=== PATIENT | male | born 1935 | race Caucasian/White ===

== ENCOUNTER 2019-12-01 16:04 | Inpatient (IN) | payer MEDICARE, SELFPAY ==
[2019-12-01] VITALS (56 sets, daily range): BP systolic 115–238; BP diastolic 56–114; PULSE 71–115; RESP 16–30; TEMP 36.9; O2SAT 88–99; BMI 24.4
--- NOTE | 2019-12-01 16:15 | ED_ITS ---
Entered by Mela Angel, acting as scribe for Nelly Arciniega MD, [facility] HPI - SOB/Dyspnea General: Chief Complaint: Shortness of Breath/Dyspnea Stated Complaint: SOB Time Seen by Provider: 12/01/19 16:15 Source: patient Mode of arrival: EMS Limitations: no limitations History of Present Illness: HPI Narrative: 84 yo Male presents to ED with complaint of shortness of breath. Pt states that his breathing got really bad before lunch time today. Pt states he wasn't able to walk to the bathroom and back without being out of breath. Pt states that he is normally on 4 liters of oxygen at home. Pt states that he has a hacking cough and can't cough anything up. Pt denies any fever and states that he hasn't been out of the house in several months until today. Pt states that he had an aortic valve replacement in 2011 and last summer had [address] An. elicited complaint: shortness of breath and cough Pertinent past history: COPD Onset (ago): hour(s) Context: recent illness and occurred during exertion Timing: progressively worsening Severity: moderate Exacerbating factors: exertion, movement and coughing Relieving factors: oxygen and rest Known history of: COPD Associated symptoms: Reports chest congestion, chest pain and cough; Deny abdominal pain, fever(s), nausea, palpitations, polydipsia, polyuria or vomiting Treatment prior to arrival: oxygen and bronchodilator Related Data: Home oxygen amount: 4 liters Review of Systems General: Reports: 10 or more systems reviewed and unremarkable except in HPI and below Const: Denies: fever Eyes: Denies: change in vision or blurry vision ENMT: Denies: throat pain, enlarged tonsils, painful swallowing, hoarseness, mouth pain or swelling of lips/tongue Card: Reports: chest pain; Denies: palpitations, irregular heart rhythm, edema or swelling of feet/ankles Resp: Reports: shortness of breath, non-productive cough and chest congestion GI: Denies: abdominal pain, nausea or vomiting : Denies: flank pain, painful urination, urinary frequency, urinary urgency or urinary hesitancy Musc: Denies: neck pain, back pain or extremity swelling Skin/Breast: Denies: rash, itching or redness Neuro: Denies: headache, numbness in extremities or weakness in extremities Endo: Denies: excessive urination, excessive thirst or tired all the time PFSH ED PFSH: Social History Smoking and tobacco status: former smoker Physical Exam Const: COMMON NORMALS: no apparent distress, average body habitus, oriented x3, no limitations, healthy appearing, alert and well nourished HENMT: COMMON NORMALS: normocephalic, head/scalp atraumatic and moist oral mucous membranes HEAD & SCALP: normocephalic and atraumatic Eye: COMMON NORMALS: PERRL, EOMs intact bilaterally, conjunctivae normal and no scleral icterus CONJUNCTIVA: Yes conjunctivae normal PUPIL: Yes PERRL Neck/C-Spine: COMMON NORMALS: full ROM, supple, no meningeal signs, no JVD and no carotid bruits Chest: COMMONS NORMALS: inspection of chest normal and palpation of chest normal Resp: COMMON NORMALS: no retractions and percussion normal EFFORT & INSPECTION: No able to speak in complete sentences, Yes tachypneic, Yes respiratory distress, No decreased respiratory effort, Yes labored, Yes retractions and Yes uses accessory muscles AUSCULTATION: crackles Laterality: bilateral PERCUSSION: percussion normal Cardio: COMMON NORMALS: no JVD, regular rate, regular rhythm, S1 normal heart sound, S2 normal heart sound, no gallops, no clicks, no murmurs, no rub and peripheral pulses 2+ throughout RATE: regular rate RHYTHM: regular rhythm HEART SOUNDS: S1 normal and S2 normal PERIPHERAL PULSES: pulses 2+ throughout GI: COMMON NORMALS: normal to inspection, nondistended, normoactive bowel sounds, soft to palpation, non-tender, no hepatosplenomegaly, no masses and no bruits PALPATION: Yes soft and Yes no hepatosplenomegaly : COMMON NORMALS: Yes no CVA tenderness BLADDER/KIDNEY EXAM: Yes no CVA tenderness Back/Pelvis: COMMON NORMALS: no CVA tenderness Extremity: COMMON NORMALS: normal to inspection, full ROM, normal capillary refill, no calf tenderness and no pedal edema Neuro: COMMON NORMALS: oriented x3 SENSORIUM/ORIENTATION: Yes alert MENINGEAL SIGNS: Yes no meningeal signs Skin: COMMON NORMALS: no rashes or lesions noted, no wounds, skin turgor normal, no jaundice, no petechiae and no mottling GENERAL SKIN EXAM: no rashes or lesions noted and turgor normal Course Consultations: Consultation #1: Dr. Herrera, hospitalist. She kindly accepted the patient to her service. Vital Signs: Vital signs: Vital Signs Temperature 98.4 F 12/01/19 16:05 Pulse Rate 106 H 12/01/19 21:37 Respiratory Rate 20 H 12/01/19 21:35 Blood Pressure 227/108 12/01/19 20:40 Pulse Oximetry 98 12/01/19 21:37 MDM - SOB/Dyspnea MDM Narrative: Medical decision making narrative: Patient who presented to the emergency department in acute respiratory distress. Most likely secondary to a COPD exacerbation. Evaluation does not reveal an infectious cause for decompensation. Because of his respiratory status he needed to be placed on a biPAP and he is admitted for further evaluation and management. Lab Data: Labs: Lab Results 12/01/19 12/01/19 12/01/19 Range/Units 16:15 16:15 16:15 WBC 10.7 H (4.0-10.0) 10^3/ uL RBC 3.80 L (4.1-5.3) 10^6/u L Hgb 10.6 L (11.7-16.6) g/dL Hct 34.1 L (42.0-52.0) % MCV 89.7 (80-94) fL MCH 27.9 L (28.0-34.0) pg MCHC 31.1 (30.0-36.0) g/dL RDW 14.9 (12.1-15.1) % Plt Count 285 (130-400) 10^3/c mm MPV 9.9 (7.4-10.4) fL Neut % (Auto) 74.8 % Lymph % (Auto) 10.5 % [place] % (Auto) 7.5 % Eos % (Auto) 6.4 % Baso % (Auto) 0.4 % Neut # (Auto) 8.0 H (1.8-7.7) 10^3/u L Lymph # (Auto) 1.1 (0.8-4.8) 10^3/u L [place] # (Auto) 0.8 (0.2-0.9) 10^3/u L Eos # (Auto) 0.7 (0.0-0.8) 10^3/u L Baso # (Auto) 0.0 (0.0-0.1) 10^3/u L Nucleated RBC % (a uto) 0 % Nucleated RBCs # 0.0 /100WBC D-Dimer 1.30 H (0-0.59) ug/mIFE U Specimen Type Sample Site ABG pH (7.35-7.45) ABG pCO2 (35-45) mmHg ABG pO2 (80.0-100.0) mmH g ABG HCO3 (22-26) mmol/L ABG Base Excess (-2.0-2.0) mmol/ L Tye Test Hematocrit (42-52) % Hgb O2 Saturation (95-100) % Carboxyhemoglobin (0.4-20.1) %THgb Methemoglobin (0.4-1.5) % Total Hemoglobin (14-18) g/dL O2 Delivery Device O2 Liters/Min % FiO2 % Health It Specialist ID Sodium 139 (136-145) mmol/L Potassium 4.7 (3.5-5.1) mmol/L Chloride 98 (98-107) mmol/L Carbon Dioxide 30 H (22-29) mmol/L Anion Gap 15.7 (5-19) BUN 29 H (8-23) mg/dL Creatinine 1.1 (0.7-1.2) mg/dL Glucose 165 H (65-115) mg/dL Calcium 9.7 (8.5-10.5) mg/dL Total Bilirubin 0.3 (0.15-1.2) mg/dL AST 23 (0-40) U/L ALT 14 (0-41) U/L Alkaline Phosphata se 158 H (40-130) IU/L NT-Pro-B Natriuret Pep 842 H (0-450) pg/mL Total Protein 7.1 (6.6-8.7) g/dL Albumin 4.2 (3.5-5.2) g/dL Globulin 2.9 (1.3-4.6) g/dL Influenza Type A A g (Negative) POC Influenza B Ag (Negative) 12/01/19 12/01/19 Range/Units 16:40 17:05 WBC (4.0-10.0) 10^3/ uL RBC (4.1-5.3) 10^6/u L Hgb (11.7-16.6) g/dL Hct (42.0-52.0) % MCV (80-94) fL MCH (28.0-34.0) pg MCHC (30.0-36.0) g/dL RDW (12.1-15.1) % Plt Count (130-400) 10^3/c mm MPV (7.4-10.4) fL Neut % (Auto) % Lymph % (Auto) % [place] % (Auto) % Eos % (Auto) % Baso % (Auto) % Neut # (Auto) (1.8-7.7) 10^3/u L Lymph # (Auto) (0.8-4.8) 10^3/u L [place] # (Auto) (0.2-0.9) 10^3/u L Eos # (Auto) (0.0-0.8) 10^3/u L Baso # (Auto) (0.0-0.1) 10^3/u L Nucleated RBC % (a uto) % Nucleated RBCs # /100WBC D-Dimer (0-0.59) ug/mIFE U Specimen Type Arterial Sample Site Radial, left ABG pH 7.44 (7.35-7.45) ABG pCO2 45.7 H (35-45) mmHg ABG pO2 70.5 L (80.0-100.0) mmH g ABG HCO3 31.1 H (22-26) mmol/L ABG Base Excess 6.1 H (-2.0-2.0) mmol/ L Tye Test Pos Hematocrit 34.7 L (42-52) % Hgb O2 Saturation 92.6 L (95-100) % Carboxyhemoglobin 0.9 (0.4-20.1) %THgb Methemoglobin 0.8 (0.4-1.5) % Total Hemoglobin 11.3 L (14-18) g/dL O2 Delivery Device Nc O2 Liters/Min 4.0 % FiO2 36.0 % Health It Specialist ID glc Sodium (136-145) mmol/L Potassium (3.5-5.1) mmol/L Chloride (98-107) mmol/L Carbon Dioxide (22-29) mmol/L Anion Gap (5-19) BUN (8-23) mg/dL Creatinine (0.7-1.2) mg/dL Glucose (65-115) mg/dL Calcium (8.5-10.5) mg/dL Total Bilirubin (0.15-1.2) mg/dL AST (0-40) U/L ALT (0-41) U/L Alkaline Phosphata se (40-130) IU/L NT-Pro-B Natriuret Pep (0-450) pg/mL Total Protein (6.6-8.7) g/dL Albumin (3.5-5.2) g/dL Globulin (1.3-4.6) g/dL Influenza Type A A g Negative (Negative) POC Influenza B Ag Negative (Negative) Imaging Data^: CTA Chest: Radiologist's impression: [place] [address] CT Scan Report Signed Patient: Ion Messina #: [id number] : 6Acct#:[id number] Age/Sex: 84 / MADM Date: 12/01/19 Loc: ERRoom/Bed: Attending Dr: Ordering Provider/Ordering MD: Nelly Arciniega MD, [facility] Date of Service: 12/01/19 Procedure(s): CT angio chest PE protcl [id number] Accession Number(s): [id number] Report Number: [id number] PROCEDURE INFORMATION: Exam: CT Angiography Chest With Contrast Exam date and time: 12/01/2019 5:07 PM Age: 84 years old Clinical indication: Shortness of breath; Prior surgery; Surgery date: 6+ months; Surgery type: Valve; Patient HX: C/O worsened SOB since yesterday TECHNIQUE: Imaging protocol: Computed tomographic angiography of the chest with intravenous contrast. 3D rendering: MIP and/or 3D reconstructed images were created by the technologist. Total DLP: 618.25 mGy-cm Radiation optimization: All CT scans at this facility use at least one of these dose optimization techniques: automated exposure control; mA and/or kV adjustment per patient size (includes targeted exams where dose is matched to clinical indication); or iterative reconstruction. Contrast material: OMNI 350; Contrast volume: 95 ml; Contrast route: 18G; COMPARISON: CTA Chest-Pulmonary Emb [id number] 02/24/2019 9:45 AM FINDINGS: Pulmonary arteries: Normal. No pulmonary emboli. Aorta: Unremarkable. No aortic aneurysm. No aortic dissection. Lungs: There are severe centrilobular emphysematous changes in the bilateral lungs. Bilateral lung scarring. There are pulmonary parenchymal calcifications consistent with remote granulomatous organism exposure. Pleural space: Unremarkable. No pneumothorax. No pleural effusion. Heart: Multivessel atherosclerotic disease which involves the coronary arteries. Mediastinum: There are post sternotomy changes and postoperative changes in the anterior mediastinum including a prosthetic aortic valve. Kidneys and ureters: 3.7 cm right renal cyst has benign features. Follow-up is not necessary. Lymph nodes: There are calcified mediastinal and perihilar lymph nodes consistent with prior granulomatous exposure. Bones/joints: Generalized osteopenia. There are degenerative changes in the visualized spine. Soft tissues: Unremarkable. CT/CT angio chest PE protcl [id number] IMPRESSION: 1. There are severe centrilobular emphysematous changes in the bilateral lungs. 2. No evidence for pulmonary embolus. Radiation Dose CTDIVOL = (mGy): DLP = 618.25 (mGy-cm) Dictated By:Angelia Matson MD Signed By:Angelia Matson MDSigned Date/Time:12/01/191815 DD/ 14 Discharge Plan Discharge Patient Disposition: Admitted As Inpatient Admit Provider: Deneen Herrera Clinical Impression: Acute and chronic respiratory failure ([id number]), Acute exacerbation of chronic obstructive airways disease Condition: Stable Interventions: ED Discharge Assessment Last Done: 12/01/19 19:53 Discharge Date/Time: 12/01/19 20:13 Coding Level of Care Code ED Salvage Clerk for Chg Fwd Exam Comprehensive The documentation recorded by the Stanley gardiner Carmen, accurately reflects the service I personally performed and the decisions made by Suze rendon Adegoke I, MD, [facility] Dec 01, 2019 16:04
--- NOTE | 2019-12-01 16:29 | XR_ITS ---
WS: [id number] CHEST XRAY TECHNIQUE: Portable chest. CLINICAL INFORMATION: Difficulty breathing COMPARISON: February 24, 2019 FINDINGS: Heart: Cardiomegaly. Sternotomy. Lungs: Chronic emphysematous changes. Chronic interstitial thickening right midlung unchanged. No acu te-appearing pulmonary infiltrates. Bones: Normal visualized bony structures. XR/XR chest 1V portable [id number] IMPRESSION: Chronic interstitial thickening right midlung appears unchanged from previous. No new infiltrates
[2019-12-01 16:36] LABS: Basophils % 0.4 %; Eosinophils # 0.7 10^3/uL (0.0-0.8); Eosinophils % 6.4 %; Hematocrit 34.1 % (42.0-52.0); Hemoglobin 10.6 g/dL (11.7-16.6); Lymphocytes # 1.1 10^3/uL (0.8-4.8); Lymphocytes % 10.5 %; Mean Corpuscular HGB Conc 31.1 g/dL (30.0-36.0); Mean Corpuscular Hemoglobin 27.9 pg (28.0-34.0); Mean Corpuscular Volume 89.7 fL (80-94); Mean Platelet Volume 9.9 fL (7.4-10.4); Monocytes # 0.8 10^3/uL (0.2-0.9); Monocytes % 7.5 %; Neutrophils % 74.8 %; Nucleated Red Blood Cells % 0 %; Platelet Count 285 10^3/cmm (130-400); Red Cell Distribution Width 14.9 % (12.1-15.1); White Blood Count 10.7 10^3/uL (4.0-10.0)
[2019-12-01] MEDS: ipratropium-albuterol 3 mL Neb INHALATION ×3 (16:53→23:43)
--- NOTE | 2019-12-01 16:59 | CTR_ITS ---
PROCEDURE INFORMATION: Exam: CT Angiography Chest With Contrast Exam date and time: 12/01/2019 5:07 PM Age: 84 years old Clinical indication: Shortness of breath; Prior surgery; Surgery date: 6+ months; Surgery type: Valve; Patient HX: C/O worsened SOB since yesterday TECHNIQUE: Imaging protocol: Computed tomographic angiography of the chest with intravenous contrast. 3D rendering: MIP and/or 3D reconstructed images were created by the technologist. Total DLP: 618.25 mGy-cm Radiation optimization: All CT scans at this facility use at least one of these dose optimization techniques: automated exposure control; mA and/or kV adjustment per patient size (includes targeted exams where dose is matched to clinical indication); or iterative reconstruction. Contrast material: OMNI 350; Contrast volume: 95 ml; Contrast route: 18G; COMPARISON: CTA Chest-Pulmonary Emb [id number] 02/24/2019 9:45 AM FINDINGS: Pulmonary arteries: Normal. No pulmonary emboli. Aorta: Unremarkable. No aortic aneurysm. No aortic dissection. Lungs: There are severe centrilobular emphysematous changes in the bilateral lungs. Bilateral lung scarring. There are pulmonary parenchymal calcifications consistent with remote granulomatous organism exposure. Pleural space: Unremarkable. No pneumothorax. No pleural effusion. Heart: Multivessel atherosclerotic disease which involves the coronary arteries. Mediastinum: There are post sternotomy changes and postoperative changes in the anterior mediastinum including a prosthetic aortic valve. Kidneys and ureters: 3.7 cm right renal cyst has benign features. Follow-up is not necessary. Lymph nodes: There are calcified mediastinal and perihilar lymph nodes consistent with prior granulomatous exposure. Bones/joints: Generalized osteopenia. There are degenerative changes in the visualized spine. Soft tissues: Unremarkable. CT/CT angio chest PE protcl [id number] IMPRESSION: 1. There are severe centrilobular emphysematous changes in the bilateral lungs. 2. No evidence for pulmonary embolus. Radiation Dose CTDIVOL = (mGy): DLP = 618.25 (mGy-cm)
[2019-12-01 17:01] LABS: Alanine Aminotransferase 14 U/L (0-41); Albumin Level 4.2 g/dL (3.5-5.2); Alkaline Phosphatase 158 IU/L (40-130); Anion Gap 15.7 (5-19); Aspartate Amino Transferase 23 U/L (0-40); Blood Urea Nitrogen 29 mg/dL (8-23); Calcium 9.7 mg/dL (8.5-10.5); Carbon Dioxide 30 mmol/L (22-29); Chloride 98 mmol/L (98-107); Globulin 2.9 g/dL (1.3-4.6); Glucose 165 mg/dL (65-115); NT Pro B Type Natriuretic Pept 842 pg/mL (0-450); Potassium 4.7 mmol/L (3.5-5.1); Sodium 139 mmol/L (136-145); Total Bilirubin 0.3 mg/dL (0.15-1.2); Total Protein 7.1 g/dL (6.6-8.7)
[2019-12-01 17:15] LABS: ABG PCO2 45.7 mmHg (35-45); ABG PH Result 7.44 (7.35-7.45); Arterial Blood Gas Hematocrit 34.7 % (42-52); Base Excess ABG 6.1 mmol/L (-2.0-2.0); Blood Gas Allen Test Pos; Blood Gas Operator Identificat glc; Blood Gas Sample Site Radial, left; Blood Gas Sample Type Arterial; Carboxyhemoglobin 0.9 %THgb (0.4-20.1); HCO3 ABG 31.1 mmol/L (22-26); HGB O2 Sat 92.6 % (95-100); Methemoglobin 0.8 % (0.4-1.5); Oxygen Device NC; PO2 ABG 70.5 mmHg (80.0-100.0); Total Hemoglobin 11.3 g/dL (14-18)
[2019-12-01] MEDS: iohexol 350 mg/mL 100 mL Btl IV (17:18)
[2019-12-01 17:23] LABS: Influenza A by IFA Negative (Negative); Influenza B by IFA Negative (Negative)
--- NOTE | 2019-12-01 20:19 | P.HP_ITS ---
Providers/Chief Complaint Admitting Physician: Deneen Herrera MD Primary Care Provider: Sandy Cason Chief Complaint: ACUTE RESPIRATORY FAILURE;COPD EXACERBATION History of Present Illness Ion Messina is a 84 year old male with PMHx of Oxygen-dependent COPD (4 L), HTN, IDDM type II (brittle diabetes), s/p aortic valve replacement, HTN, Hyperlipidemia, Chronic atrial fibrillation/atrial flutter; on AC with Eliquis, CAD s/p PCI most recently 03/2019 presents with SOB worsened since this afternoon. and daughter at bedside he was in his usual state of health until 2 to 3 days ago when he started to experience symptoms of runny nose and cough without any expectoration. He was using his inhalers and nebulizers at his baseline, not recently increased. Starting yesterday he started to experience some shortness of breath, more acutely worsened this afternoon which did not improve with his rescue inhalers and nebulizer. He was therefore brought into the ER and noted to be tachypneic with respiratory rate in the 30s and also tachycardic with heart rate going up to 1 20-1 31 due to respiratory distress. His initial blood gas did not show any hypercapnia or hypoxia, however per ER report he had started to tire out and was therefore placed on BiPAP after which he is feeling better. He has received nebulizations and Solu-Medrol 125 mg x 1 in the ED. There is no complaints of chest pain since onset of symptoms. No complaint of increasing swelling in lower extremities. He has been taking all of his medications including Lasix as prescribed. He has not had any fever at home. In the ICU now his temperature is 99.9. Family gives a history of multiple sick contacts with URI symptoms over the past week including a nephew who was taking Tamiflu. He had diarrhea 2 days ago with incontinence which has since resolved. Diagnostics show WBC 10.7,ABG 7.44, 45.7/70.5/31.1/92.6 on 4L NC. Hco3 chronically ranging ~30s. Renal function at baseline. BNP 842. Influenza swab negative. CTA with no PE, but severe emphysematous changes B/L lungs. Last stress test 02/2019 normal, however had ongoing chest pain, followed up with angiogram with stenting to obtuse marginal x2. No recurrent chest pain since then. Troponin N/A. Upon my evaluation patient's blood pressure is 220/118 on monitor, heart rate of 90 bpm, SPO2 of 92%, he was transferred from ER to ICU off of BiPAP and this made him visibly tachypneic so he has been placed back on right now. He received hydralazine 10 mg IV with improvement in blood pressure now to 130/59 by 11:30 PM. Review of Systems General: Reports: 10 or more systems reviewed and unremarkable except in HPI and below Const: Denies: fever, chills or body aches Eyes: Denies: change in vision, blurry vision or photophobia ENMT: Denies: throat pain, enlarged tonsils, painful swallowing, hoarseness or nasal congestion Card: Reports: shortness of breath on exertion; Denies: chest pain, palpitations, irregular heart rhythm, edema, swelling of feet/ankles, lightheadedness, pre-syncope or shortness of breath when lying down Resp: Reports: shortness of breath, non-productive cough and wheezing; Denies: productive cough, stridor, pain on inspiration, change in phlegm color, coughing up blood or chest congestion GI: Denies: abdominal pain, nausea, vomiting, vomiting blood, coffee grounds in vomit, difficulty swallowing, heartburn/indigestion, diarrhea, constipation, cramping, change in stool character, blood in stool or black tarry stool : Denies: flank pain, painful urination, urinary frequency, urinary urgency, urinary hesitancy or blood in urine Musc: Denies: neck pain, back pain, extremity pain, joint swelling, joint wa rmth or deformity Neuro: Denies: headache, numbness in extremities, weakness in extremities, changes in sensation, difficulty walking, frequent falls, dizziness, vertigo, behavioral changes, slurred speech or seizure-like activity Psych: Denies: anxiety, depression, suicidal ideation or homicidal ideation Endo: Denies: excessive urination, excessive thirst, tired all the time, cold intolerance or hot flashes Balaji/Lymph: Denies: easy bruising or easy bleeding Medications/Allergies Home Medications Medication Instructions Recorded Confirmed Last Taken Type albuterol sulfate 2 puff INHALATION Q6H PRN 12/01/19 12/01/19 12/01/19 History albuterol sulfate 2.5 mg INHALATION Q6H PRN 12/01/19 12/01/19 12/01/19 History amiodarone 200 mg PO DAILY 12/01/19 12/01/19 12/01/19 History apixaban [Eliquis] 5 mg PO BID 12/01/19 12/01/19 12/01/19 History atorvastatin 10 mg PO DAILY 12/01/19 12/01/19 12/01/19 History clonidine HCl 0.2 mg PO TID 12/01/19 12/01/19 12/01/19 History clopidogrel 75 mg PO DAILY 12/01/19 12/01/19 12/01/19 History fluticasone furoate-vilanterol 1 ea INHALATION DAILY 12/01/19 12/01/19 12/01/19 History [Breo Ellipta] furosemide 40 mg PO DAILY 12/01/19 12/01/19 12/01/19 History insulin degludec [Tresiba 28 unit SUBCUT BEDTIME 12/01/19 12/01/19 11/30/19 History FlexTouch U-200] insulin lispro [Humalog KwikPen See Rx Instructions .ROUTE .COMPLEX 12/01/1912/01/19 History Insulin] latanoprost 1 drp OPHTHALMIC (EYE) BEDTIME 12/01/19 12/01/19 11/30/19 History metoprolol succinate 12.5 mg PO DAILY 12/01/19 12/01/19 11/30/19 History olmesartan 10 mg PO DAILY 12/01/19 12/01/19 12/01/19 History prednisone 5 mg PO EVERY OTHER DAY 12/01/19 12/01/19 11/30/19 History terazosin 5 mg PO BID 12/01/19 12/01/19 12/01/19 History theophylline 400 mg PO BEDTIME 12/01/19 12/01/19 11/30/19 History tiotropium bromide [Spiriva with 1 cap INHALATION DAILY 12/01/19 12/01/19 12/01/19 History HandiHaler] Allergies Allergy/AdvReac Type Severity Reaction Status Date / Time ezetimibe [From Vytorin] Allergy ADR-Cramping Verified 12/01/19 16:13 of the Muscles Penicillins Allergy ALGY-Rash Verified 12/01/19 16:13 simvastatin [From Vytorin] Allergy ADR-Cramping Verified 12/01/19 16:13 of the Muscles PFSH Acute PFSH: Medical History (Updated 12/01/19 @ 23:45 by Deneen Herrera MD) Atrial fibrillation CAD (coronary artery disease) Diabetes mellitus Hyperlipidemia Hyperlipidemia Surgical History Hx of CABG Social History Smoking and tobacco status: former smoker Vitals/I&O/Wt Last Vital Signs Temp 98.4 F 12/01/19 16:05 Pulse 107 H 12/01/19 20:15 Resp 20 H 12/01/19 19:53 BP 187/95 12/01/19 19:53 Pulse Ox 91 12/01/19 20:15 Weight last 48 hrs Weight 79.379 kg Physical Exam Narrative: EXAM NARRATIVE: GEN: Awake, alert and oriented, lying in bed in semi recumbent position with BiPAP in place. Urine transferred from ER patient was on a nasal cannula and being off of BiPAP for about 10 minutes had made him feel winded and respiratory rate was back at 30. HEENT BiPAP mask in place. CVS: S1S2 N RS: Bilateral diffusely reduced air entry all areas Abd: Soft, nt/nd , bs+ TOOLROOM ATTENDANT: no focal neuro deficits Data : 12/01/19 16:15 12/01/19 16:15 Micro: Microbiology 12/01/19 16:40 Blood Culture - Preliminary Blood SPECIMEN COLLECTED 12/01/19 16:45 Blood Culture - Preliminary Blood SPECIMEN COLLECTED A&P Assessment and plan (1) Acute and chronic respiratory failure ([id number]): Status: Acute Qualifiers: Respiratory failure complication: hypoxia Qualified Code(s): J96.21 - Acute and chronic respiratory failure with hypoxia Code(s): J96.20 - Acute and chronic respiratory failure, unspecified whether with hypoxia or hypercapnia (2) Acute exacerbation of chronic obstructive airways disease: Status: Acute Code(s): J44.1 - Chronic obstructive pulmonary disease with (acute) exacerbation (3) Diabetes mellitus: Status: Acute Code(s): E11.9 - Type 2 diabetes mellitus without complications (4) CAD (coronary artery disease): Status: Acute Code(s): I25.10 - Atherosclerotic heart disease of [place] coronary artery without angina pectoris (5) Atrial fibrillation: Status: Acute Code(s): I48.91 - Unspecified atrial fibrillation Additional A&P Information Admit to ICU in view of COPD exacerbation. #1 acute on chronic COPD exacerbation Duo nebs every 4 hours Budesonide inhalation 0.5 twice daily Solu-Medrol 125 mg IV every 8 hourly Continue home dose of theophylline at 400 mg p.o. at bedtime. Keep patient on BiPAP overnight CTA of the chest is without PE. Extensive emphysematous changes seen on the CAT scan with numerous bullae and air trapping. Appears that likely trigger for COPD exacerbation now may have been a viral URI since he has been having some cough, diarrhea runny nose and multiple sick contacts. Influenza swab is negative. We will also start levofloxacin 750 mg daily which will cover him for COPD exacerbation and also possibility of CAP including atypical pneumonia. ABG does not show any evidence of hypoxia or hypercapnia at this time, however patient is noted to be extremely tachypneic upon being taken off with the BiPAP. Clinically do not feel that CHF is contributing at this time. There are no rails on examination, no fluid noted on CT of the chest and his BNP is lower than at baseline. Additionally he does not have any complains of chest pain therefore doubt cardiac causes. We will continue Lasix at home dose. N.p.o. for now while on continuous BiPAP. #2 atrial fibrillation/flutter, currently rate controlled. Continue amiodarone 200 mg daily. Metoprolol converted to IV dosing for now, to be used for both heart rate and blood pressure control. #3 hypertension with blood pressure 228/118 upon presentation to the ED improved with 10 mg of IV hydralazine. Will use the same PRN. Once he is able to tolerate p.o. intake clonidine p.o. can be resumed at home dosing. Continue olmesartan #4 diabetes mellitus: Insulin sliding scale for now. Since he is n.p.o. we will hold off on using long-acting insulin tonight. This may be resumed tomorrow. DVT prophylaxis: Currently on Eliquis CODE STATUS is full code. Per discussion with patient and family, he would like a trial of full resuscitation, however if it appears that he is going to be chronically vent dependent he would not want tracheostomy or prolonged ventilation. Attestations Medical Necessity Statement*: Anticipate greater than 2 midnight admission for acute on chronic COPD exacerbation with respiratory fatigue. Coding Level of Care Code Acute Lye Bath Operator for [facility] Diagnoses Acute and chronic respiratory failure ([id number]) J96.21 Respiratory failure complication: hypoxia Acute exacerbation of chronic obstructive airways disease J44.1 Diabetes mellitus E11.9 CAD (coronary artery disease) I25.10 Atrial fibrillation I48.91
[2019-12-01] MEDS: hyDRALAzine 20 mg/mL INJ 1 mL 10 MG IVP (20:49)
[2019-12-01] MEDS: budesonide 0.5 mg/2 mL Neb INHALATION (21:33)
[2019-12-01] MEDS: latanoprost 0.005% Op Soln 2.5 mL Btl 1 DROP EYE-BOTH (21:45)
[2019-12-01] MEDS: levofloxacin-dextrose 5 % 750 MG/150 ML PREMIX 150 MG IV (21:45)
[2019-12-01] MEDS: metoprolol tartrate 1 mg/1 mL SDV 5 mL 5 MG IV (21:46)
[2019-12-01 22:06] LABS: Magnesium 2.2 mg/dL (1.7-2.3)
--- NOTE | 2019-12-01 23:21 | PC.NURSE ---
2006 rcvd pt from ed via stretcher , sternal and abd retractions noted with respirations. spo2 84 on 6L NC at this time. family at bedside multiple questions answered. dr. soto at bedside. pt placed on bipap. erick pérez.
[2019-12-02] VITALS (75 sets, daily range): BP systolic 147–203; BP diastolic 56–102; PULSE 67–93; RESP 15–27; TEMP 36.7–36.9; O2SAT 88–99
[2019-12-02] MEDS: metoprolol tartrate 1 mg/1 mL SDV 5 mL 5 MG IV ×3 (00:42→09:57)
[2019-12-02 00:51] LABS: Troponin T (5th) Once 105 ng/mL (0-15)
[2019-12-02 01:57] LABS: Add Urine Microscopic? YES; Bilirubin Urine Neg (NEGATIVE); Blood Urine Neg (Negative); Glucose Urine UA Norm (Normal); Ketones Urine Negative (Negative); Leukocyte Esterase Urine Negative (Negative); Nitrate Urine Negative (Negative); Protein Urine 1+ (Negative); RBC Urine RARE /hpf (0-2); Squamous Epithelial Cell Urine RARE (0-5); Urine Appearance Clear (CLEAR); Urine Color Yellow (Yellow); Urobilinogen Urine Norm (Negative); WBC Urine RARE /hpf (0-5); pH Urine 5 (5-7)
[2019-12-02 01:58] LABS: Bacteria Urine TRACE; Mucus Urine TRACE
[2019-12-02] MEDS: ipratropium-albuterol 3 mL Neb INHALATION ×6 (03:50→23:07)
[2019-12-02 04:41] LABS: ABG PCO2 46.2 mmHg (35-45); Arterial Blood Gas Hematocrit 34.6 % (42-52); Blood Gas Allen Test Pos; Blood Gas Sample Site Radial, right; Blood Gas Sample Type Arterial; HCO3 ABG 28.4 mmol/L (22-26); Oxygen Device BIPAP; PO2 ABG 86.9 mmHg (80.0-100.0)
[2019-12-02 05:03] LABS: Basophils % 0.1 %; Hemoglobin 10.8 g/dL (11.7-16.6); Lymphocytes # 0.2 10^3/uL (0.8-4.8); Lymphocytes % 2.2 %; Mean Corpuscular HGB Conc 31.8 g/dL (30.0-36.0); Mean Corpuscular Hemoglobin 28.9 pg (28.0-34.0); Mean Corpuscular Volume 90.9 fL (80-94); Mean Platelet Volume 9.8 fL (7.4-10.4); Monocytes % 0.3 %; Neutrophils # 8.6 10^3/uL (1.8-7.7); Neutrophils % 97.1 %; Nucleated Red Blood Cells % 0 %; Platelet Count 261 10^3/cmm (130-400); Red Blood Count 3.74 10^6/uL (4.1-5.3); Red Cell Distribution Width 15.1 % (12.1-15.1); White Blood Count 8.8 10^3/uL (4.0-10.0)
[2019-12-02 05:22] LABS: Anion Gap 19.1 (5-19); Blood Urea Nitrogen 38 mg/dL (8-23); Calcium 9.7 mg/dL (8.5-10.5); Carbon Dioxide 26 mmol/L (22-29); Chloride 98 mmol/L (98-107); Glucose 332 mg/dL (65-115); Osmolality Calculated 297 mOsm/kg (285-295); Potassium 5.1 mmol/L (3.5-5.1); Sodium 138 mmol/L (136-145)
[2019-12-02 05:32] LABS: Slide Review Slide Review Perform
[2019-12-02 05:45] LABS: Troponin(5th) Baseline 108 ng/mL (0-15)
[2019-12-02 05:56] LABS: Magnesium 2.2 mg/dL (1.7-2.3)
--- NOTE | 2019-12-02 06:20 | ECG_ITS ---
Measurements Intervals [place] Rate: 71 P: -15 UT: 195 QRS: -64 QRSD: 112 T: 75 QT: 427 QTc: 464 SINUS RHYTHM LEFT ANTERIOR FASCICULAR BLOCK [QRS AXIS <= -45, QR IN I, RS IN II] SEPTAL MYOCARDIAL INFARCTION [40+ ms Q WAVE IN V1/V2], OF INDETERMINATE AGE Compared to ECG 02/24/2019 13:47:05 Myocardial infarct finding now present Atrial flutter no longer present Intraventricular conduction delay no longer present T-wave abnormality no longer present Electronically Signed On 12-02-2019 15:36:11 ASSISTANT MAINTENANCE MANAGER by Sona Antonio M.D. [email or web address]
[2019-12-02 07:31] LABS: Glucose Point of Care 339 mg/dL (70-110)
[2019-12-02] MEDS: budesonide 0.5 mg/2 mL Neb INHALATION ×2 (07:58→19:46)
[2019-12-02] MEDS: atorvastatin 40 mg Tablet 10 MG PO (08:20)
[2019-12-02] MEDS: cloNIDine 0.1 mg Tablet 0.2 MG PO ×3 (08:20→21:15)
[2019-12-02] MEDS: losartan 50 mg Tablet 25 MG PO (08:20)
[2019-12-02] MEDS: apixaban 5 mg Tablet PO ×2 (08:21→18:42)
[2019-12-02] MEDS: clopidogrel 75 mg Tablet PO (08:21)
[2019-12-02] MEDS: FUROsemide 40 mg Tablet PO (08:21)
[2019-12-02] MEDS: amiodarone 200 mg Tablet PO (08:21)
[2019-12-02] MEDS: terazosin 5 mg Capsule PO ×2 (09:57→18:42)
--- NOTE | 2019-12-02 10:20 | ECG_ITS ---
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 [email or web address]
[2019-12-02 10:56] LABS: Troponin 5 6HR Delta 6.4 ng/L (0-12)
[2019-12-02 11:16] LABS: Troponin 5 6HR 114.4 ng/mL (0-15)
[2019-12-02 11:45] LABS: Glucose Point of Care 376 mg/dL (70-110)
--- NOTE | 2019-12-02 11:58 | PM.PN ---
Subjective Subjective: Interval history: History and physical was reviewed. Patient reports he is breathing better than he was yesterday. No chest pain. Certainly not at baseline. Medications: Reviewed: Yes Vitals/I&O/Wt Last Vital Signs Temp 98.4 F 12/01/19 16:05 Pulse 77 12/02/19 11:37 Resp 17 12/02/19 11:37 BP 203/82 12/02/19 08:20 Pulse Ox 94 12/02/19 11:37 12/01/19 12/02/19 12/02/19 22:59 06:59 14:59 Intake Total 60 / 60 Output Total 150 / 150 200 / 350 50 / 50 Balance -150 / -150 -200 / -350 10 / 10 Weight last 48 hrs Weight 79.379 kg Physical Exam Narrative: EXAM NARRATIVE: General exam no apparent distress Cardiovascular regular rate and rhythm without murmur Lungs diminished breath sounds bilaterally with a few expiratory wheezes Abdomen is soft, positive bowel sounds Extremities no cyanosis clubbing or edema Data : 12/02/19 04:35 12/02/19 04:35 Micro: Microbiology 12/01/19 16:40 Blood Culture - Preliminary Blood SPECIMEN COLLECTED 12/01/19 16:45 Blood Culture - Preliminary Blood SPECIMEN COLLECTED A&P Assessment and plan (1) Acute and chronic respiratory failure ([id number]): Requiring BiPAP. We will try to wean off. Continue IV Levaquin Continue pulmonary toilet Continue inhaled steroid Reduce IV steroid Status: Acute Qualifiers: Respiratory failure complication: hypoxia Qualified Code(s): J96.21 - Acute and chronic respiratory failure with hypoxia Code(s): J96.20 - Acute and chronic respiratory failure, unspecified whether with hypoxia or hypercapnia (2) Acute exacerbation of chronic obstructive airways disease: IV steroids, pulmonary toilet, IV antibiotics. Already improving. Status: Acute Code(s): J44.1 - Chronic obstructive pulmonary disease with (acute) exacerbation (3) Diabetes mellitus: Sliding scale insulin, Tresiba Status: Acute Code(s): E11.9 - Type 2 diabetes mellitus without complications (4) CAD (coronary artery disease): Status: Acute Code(s): I25.10 - Atherosclerotic heart disease of [place] coronary artery without angina pectoris (5) Atrial fibrillation: On Eliquis, amiodarone, metoprolol Discontinue IV metoprolol Restart patient's home oral metoprolol Status: Acute Code(s): I48.91 - Unspecified atrial fibrillation Additional A&P Information Initiate diet May transfer out of the ICU on telemetry DVT prophylaxis: Currently on Eliquis Full code Attestations Medical Necessity Statement*: Needs continued hospitalization for further treatment of COPD exacerbation with IV steroids Coding Level of Care Code Acute Director [facility] for [facility] Diagnoses Acute and chronic respiratory failure (ucjqx-[id number]) J96.21 Respiratory failure complication: hypoxia Acute exacerbation of chronic obstructive airways disease J44.1 Diabetes mellitus E11.9 CAD (coronary artery disease) I25.10 Atrial fibrillation I48.91
--- NOTE | 2019-12-02 12:46 | PC.RESP ---
Patient given Pulmonary Rehab information.
--- NOTE | 2019-12-02 13:42 | PC.NURSE ---
REPORT CALLED TO BEN GOING TO ROOM [phone] WILL TRANSFER IN BED
[2019-12-02 16:52] LABS: Glucose Point of Care 229 mg/dL (70-110)
[2019-12-02 17:07] LABS: Glucose Point of Care 541 mg/dL (70-110)
[2019-12-02 17:07] LABS: Glucose Point of Care 588 mg/dL (70-110)
[2019-12-02 18:30] LABS: Glucose Point of Care 561 mg/dL (70-110)
[2019-12-02 18:30] LABS: Glucose Point of Care 541 mg/dL (70-110)
[2019-12-02] MEDS: metoprolol tartrate 25 mg Tablet 12.5 MG PO (18:42)
--- NOTE | 2019-12-02 19:10 | PC.NURSE ---
Introduction of staff and report received, aidet.
[2019-12-02] MEDS: insulin glargine 100 units/1 mL 30 UNIT SUBCUT (20:04)
[2019-12-02 20:37] LABS: Glucose Point of Care 440 mg/dL (70-110)
[2019-12-02] MEDS: levofloxacin-dextrose 5 % 750 MG/150 ML PREMIX 150 MG IV (21:22)
[2019-12-02 21:24] LABS: Glucose Point of Care 518 mg/dL (70-110)
[2019-12-03] VITALS (19 sets, daily range): BP systolic 135–179; BP diastolic 55–71; PULSE 61–90; RESP 16–22; TEMP 36.3–36.9; O2SAT 90–97
[2019-12-03 00:16] LABS: Glucose Point of Care 437 mg/dL (70-110)
--- NOTE | 2019-12-03 00:52 | PC.NURSE ---
Dr olvera notified that at 1826 on 12/02/19, pt's accu check was 561. Attending was notified and orders were received by off going Nurse. At 2002, Lantus 30 units and novolog 18 units per sliding scale was given for accu check of 440. Pt's dtr requested at 2119 for pt's accu check be rechecked, with result of 518. Pt and dtr educated that not enough time has elapsed for much improvement to obtained, and would recheck pt's accu check around midnight. At 11, recheck resulted in accu check of 437. No new orders obtained at this time.
[2019-12-03] MEDS: ipratropium-albuterol 3 mL Neb INHALATION ×5 (03:09→20:21)
[2019-12-03 06:46] LABS: Glucose Point of Care 219 mg/dL (70-110)
[2019-12-03] MEDS: budesonide 0.5 mg/2 mL Neb INHALATION ×2 (08:40→20:21)
[2019-12-03] MEDS: atorvastatin 40 mg Tablet 20 MG PO (08:53)
[2019-12-03] MEDS: amiodarone 200 mg Tablet PO (08:54)
[2019-12-03] MEDS: apixaban 5 mg Tablet PO ×2 (08:54→17:22)
[2019-12-03] MEDS: clopidogrel 75 mg Tablet PO (08:54)
[2019-12-03] MEDS: FUROsemide 40 mg Tablet PO (08:54)
[2019-12-03] MEDS: cloNIDine 0.1 mg Tablet 0.2 MG PO ×3 (08:54→20:37)
[2019-12-03] MEDS: losartan 50 mg Tablet 25 MG PO (08:54)
[2019-12-03] MEDS: metoprolol tartrate 25 mg Tablet 12.5 MG PO ×2 (08:55→17:20)
[2019-12-03] MEDS: terazosin 5 mg Capsule PO ×2 (08:55→17:21)
[2019-12-03 12:11] LABS: Glucose Point of Care 322 mg/dL (70-110)
--- NOTE | 2019-12-03 12:48 | PM.PN ---
Subjective Subjective: Interval history: Ion reports he feels a little bit better. He acknowledges his sugar is better. He denies any vomiting. He reports he still gets worn out very easily. Medications: Reviewed: Yes Vitals/I&O/Wt Last Vital Signs Temp 98.4 F 12/03/19 11:03 Pulse 78 12/03/19 11:03 Resp 18 12/03/19 11:03 BP 179/68 12/03/19 11:03 Pulse Ox 94 12/03/19 11:03 12/02/19 12/03/19 12/03/19 22:59 06:59 14:59 Intake Total 390 / 570 200 / 770 510 / 510 Output Total 150 / 200 250 / 450 875 / 875 Balance 240 / 370 -50 / 320 -365 / -365 Weight last 48 hrs Weight 79.379 kg Physical Exam Narrative: EXAM NARRATIVE: General exam no apparent distress Cardiovascular regular rate and rhythm without murmur Lungs diminished breath sounds bilaterally. A few expiratory wheezes are still heard. Abdomen is soft, positive bowel sounds Extremities no cyanosis clubbing or edema Urinary Catheter Management^: Tinajero: Cath Placed During This Visit: yes Urethral Indwelling: Yes Reason for Continuing Indwelling Catheter: Acute Urinary Retention or Obstruction Urinary Catheter Date of Insertion: 12/03/19 Urinary Catheter Time of Insertion: 08:55 Data : 12/02/19 04:35 12/02/19 04:35 Micro: Microbiology 12/01/19 16:40 Blood Culture - Preliminary Blood NEGATIVE TO DATE 12/01/19 16:45 Blood Culture - Preliminary Blood NEGATIVE TO DATE A&P Assessment and plan (1) Acute and chronic respiratory failure (rbnyb-iu-bpxvexy): He has been able to wean off BiPAP Continue IV Levaquin Continue pulmonary toilet Continue inhaled steroid Discontinue IV steroid Initiate prednisone 40 mg daily CTA did not show pulmonary embolism. Status: Acute Qualifiers: Respiratory failure complication: hypoxia Qualified Code(s): J96.21 - Acute and chronic respiratory failure with hypoxia Code(s): J96.20 - Acute and chronic respiratory failure, unspecified whether with hypoxia or hypercapnia (2) Acute exacerbation of chronic obstructive airways disease: IV steroids, pulmonary toilet, IV antibiotics. Improving but still requiring quite a bit of oxygen at 6 L. Baseline oxygen requirement is 4-1/2 L. Status: Acute Code(s): J44.1 - Chronic obstructive pulmonary disease with (acute) exacerbation (3) Diabetes mellitus: Sliding scale insulin, Lantus Status: Acute Code(s): E11.9 - Type 2 diabetes mellitus without complications (4) CAD (coronary artery disease): Status: Acute Code(s): I25.10 - Atherosclerotic heart disease of [place] coronary artery without angina pectoris (5) Atrial fibrillation: On Eliquis, amiodarone, metoprolol Status: Acute Code(s): I48.91 - Unspecified atrial fibrillation Additional A&P Information Urinary retention. The nurse called me with significant amount of urinary retention by bladder scan. A Tinajero was placed and approximately 900 cc of urine obtained. Tinajero catheter will be continued. He will continue his terazosin. He will need outpatient follow-up with urology. DVT prophylaxis: Currently on Eliquis Full code Attestations Medical Necessity Statement*: Needs continued hospital stay for further frequent nebs secondary to severe COPD exacerbation requiring BiPAP. Coding Level of Care Code Acute Campaign Manager for [facility] Diagnoses Acute and chronic respiratory failure ([id number]) J96.21 Respiratory failure complication: hypoxia Acute exacerbation of chronic obstructive airways disease J44.1 Diabetes mellitus E11.9 CAD (coronary artery disease) I25.10 Atrial fibrillation I48.91
[2019-12-03 16:42] LABS: Glucose Point of Care 223 mg/dL (70-110)
--- NOTE | 2019-12-03 19:10 | PC.NURSE ---
iNTRODUCTION OF STAFF AND REPORT RECEIVED, AIDET.
[2019-12-03 20:11] LABS: Glucose Point of Care 330 mg/dL (70-110)
[2019-12-03] MEDS: insulin glargine 100 units/1 mL 30 UNIT SUBCUT (20:36)
[2019-12-03] MEDS: latanoprost 0.005% Op Soln 2.5 mL Btl 1 DROP EYE-BOTH (21:24)
[2019-12-04] VITALS (20 sets, daily range): BP systolic 128–163; BP diastolic 53–68; PULSE 55–80; RESP 16–20; TEMP 36.7–37.2; O2SAT 92–97
[2019-12-04] MEDS: ipratropium-albuterol 3 mL Neb INHALATION ×6 (00:04→21:16)
[2019-12-04 00:44] LABS: Glucose Point of Care 195 mg/dL (70-110)
[2019-12-04 05:33] LABS: Basophils % 0.1 %; Hemoglobin 10.6 g/dL (11.7-16.6); Lymphocytes # 0.3 10^3/uL (0.8-4.8); Lymphocytes % 1.6 %; Mean Corpuscular HGB Conc 31.2 g/dL (30.0-36.0); Mean Corpuscular Hemoglobin 28.7 pg (28.0-34.0); Mean Corpuscular Volume 92.1 fL (80-94); Monocytes # 0.9 10^3/uL (0.2-0.9); Monocytes % 5.8 %; Neutrophils # 14.2 10^3/uL (1.8-7.7); Neutrophils % 91.9 %; Nucleated Red Blood Cells % 0 %; Platelet Count 262 10^3/cmm (130-400); Red Blood Count 3.69 10^6/uL (4.1-5.3); Red Cell Distribution Width 15.8 % (12.1-15.1); White Blood Count 15.4 10^3/uL (4.0-10.0)
[2019-12-04 05:47] LABS: Anion Gap 13.1 (5-19); Blood Urea Nitrogen 57 mg/dL (8-23); Calcium 9.6 mg/dL (8.5-10.5); Carbon Dioxide 30 mmol/L (22-29); Chloride 104 mmol/L (98-107); Creatinine Clr Calc Pharmacy 50.7535; Glucose 135 mg/dL (65-115); Osmolality Calculated 295 mOsm/kg (285-295); Potassium 5.1 mmol/L (3.5-5.1); Sodium 142 mmol/L (136-145)
[2019-12-04 06:41] LABS: Glucose Point of Care 206 mg/dL (70-110)
[2019-12-04] MEDS: budesonide 0.5 mg/2 mL Neb INHALATION ×2 (07:32→21:16)
[2019-12-04] MEDS: terazosin 5 mg Capsule PO ×2 (08:45→18:45)
[2019-12-04] MEDS: predniSONE 20 mg Tablet 40 MG PO (08:45)
[2019-12-04] MEDS: apixaban 5 mg Tablet PO ×2 (08:45→18:44)
[2019-12-04] MEDS: losartan 50 mg Tablet 25 MG PO (08:46)
[2019-12-04] MEDS: FUROsemide 40 mg Tablet PO (08:47)
[2019-12-04] MEDS: metoprolol tartrate 25 mg Tablet 12.5 MG PO ×2 (08:47→18:44)
[2019-12-04] MEDS: clopidogrel 75 mg Tablet PO (08:47)
[2019-12-04] MEDS: amiodarone 200 mg Tablet PO (08:48)
[2019-12-04] MEDS: atorvastatin 40 mg Tablet 20 MG PO (08:48)
[2019-12-04] MEDS: cloNIDine 0.1 mg Tablet 0.2 MG PO ×3 (08:48→20:56)
--- NOTE | 2019-12-04 11:20 | P.PN_ITS ---
Subjective Subjective: Interval history: Ion reports he feels like his breathing is better. He thinks his strength is coming back and he has been able to get out of bed. He reports that he had some left groin pain, with a sneeze. Medications: Reviewed: Yes Vitals/I&O/Wt Last Vital Signs Temp 98.1 F 12/04/19 11:10 Pulse 74 12/04/19 11:10 Resp 18 12/04/19 11:10 BP 149/62 12/04/19 11:10 Pulse Ox 92 12/04/19 11:10 12/03/19 12/04/19 12/04/19 22:59 06:59 14:59 Intake Total 720 / 1230 360 / 360 Output Total 1550 / 2425 Balance 720 / 355 -1550 / -1195 360 / 360 Physical Exam Narrative: EXAM NARRATIVE: General exam no apparent distress Cardiovascular regular rate and rhythm without murmur Lungs diminished breath sounds bilaterally. A few scattered rhonchi and wheezes are noted Abdomen is soft, positive bowel sounds exam demonstrates no evidence of hernia bilaterally. Extremities no cyanosis clubbing or edema Urinary Catheter Management^: Tinajero: Cath Placed During This Visit: yes Urethral Indwelling: Yes Reason for Continuing Indwelling Catheter: Acute Urinary Retention or Obstruction Urinary Catheter Date of Insertion: 12/03/19 Urinary Catheter Time of Insertion: 08:55 Data : 12/04/19 04:52 12/04/19 04:52 A&P Assessment and plan (1) Acute and chronic respiratory failure ([id number]-sg-flrniqk): Overall doing better. He is now weaned down to 4 L of oxygen per nasal cannula at rest. Continue IV Levaquin Continue pulmonary toilet Continue inhaled steroid Continue oral prednisone at 40 mg daily CTA did not show pulmonary embolism. Status: Acute Qualifiers: Respiratory failure complication: hypoxia Qualified Code(s): J96.21 - A cute and chronic respiratory failure with hypoxia Code(s): J96.20 - Acute and chronic respiratory failure, unspecified whether with hypoxia or hypercapnia (2) Acute exacerbation of chronic obstructive airways disease: IV steroids, pulmonary toilet, IV antibiotics. No cannula, his baseline oxygen requirement Status: Acute Code(s): J44.1 - Chronic obstructive pulmonary disease with (acute) exacerbation (3) Diabetes mellitus: Sliding scale insulin, Lantus Blood sugar is under much better control. Status: Acute Code(s): E11.9 - Type 2 diabetes mellitus without complications (4) CAD (coronary artery disease): Status: Acute Code(s): I25.10 - Atherosclerotic heart disease of [place] coronary artery without angina pectoris (5) Atrial fibrillation: On Eliquis, amiodarone, metoprolol Status: Acute Code(s): I48.91 - Unspecified atrial fibrillation Additional A&P Information Urinary retention. The nurse called me with significant amount of urinary ret ention by bladder scan. A Tinajero was placed and approximately 900 cc of urine obtained. Tinajero catheter will be continued. He will continue his terazosin. He will need outpatient follow-up with urology. DVT prophylaxis: Currently on Eliquis Full code Attestations Medical Necessity Statement*: Needs continued hospitalization for further pulmonary toilet secondary to COPD exacerbation requiring frequent nebulized treatments. Coding Level of Care Code Acute Inside Barrel Polisher for [facility] Diagnoses Acute and chronic respiratory failure (cisnp-or-kggnfcm) J96.21 Respiratory failure complication: hypoxia Acute exacerbation of chronic obstructive airways disease J44.1 Diabetes mellitus E11.9 CAD (coronary artery disease) I25.10 Atrial fibrillation I48.91
--- NOTE | 2019-12-04 11:35 | PC.SOCIAL ---
IMM Page 2 of IMM explained to and signed by patient's spouse at bedside. They verbalize understanding. Initialed, dated, and timed and placed in chart. Copy provided to patient.
[2019-12-04 11:46] LABS: Glucose Point of Care 482 mg/dL (70-110)
[2019-12-04 16:45] LABS: Glucose Point of Care 180 mg/dL (70-110)
--- NOTE | 2019-12-04 19:15 | PC.NURSE ---
Introduction of staff and report received, aidet.
--- NOTE | 2019-12-04 19:25 | PC.NURSE ---
NOTIFIED DR COTTRELL OF PT BS AT NOON 482, 18UNITS NOVOLOG GIVEN PER SLIDING SCALE AND BS AT SUPPER TIME WAS 180. NO NEW ORDERS AT THIS TIME.
[2019-12-04 20:48] LABS: Glucose Point of Care 264 mg/dL (70-110)
[2019-12-04] MEDS: latanoprost 0.005% Op Soln 2.5 mL Btl 1 DROP EYE-BOTH (20:54)
[2019-12-04] MEDS: insulin glargine 100 units/1 mL 30 UNIT SUBCUT (20:59)
[2019-12-04] MEDS: levofloxacin-dextrose 5 % 750 MG/150 ML PREMIX 150 MG IV (21:00)
[2019-12-05] VITALS (16 sets, daily range): BP systolic 119–138; BP diastolic 64–67; PULSE 54–79; RESP 17–18; TEMP 36.6–36.7; O2SAT 87–99
[2019-12-05] MEDS: ipratropium-albuterol 3 mL Neb INHALATION ×4 (00:05→11:13)
[2019-12-05 00:48] LABS: Glucose Point of Care 177 mg/dL (70-110)
[2019-12-05 06:45] LABS: Glucose Point of Care 44 mg/dL (70-110)
[2019-12-05] MEDS: budesonide 0.5 mg/2 mL Neb INHALATION (07:40)
[2019-12-05 09:21] LABS: Glucose Point of Care 117 mg/dL (70-110)
[2019-12-05] MEDS: metoprolol tartrate 25 mg Tablet 12.5 MG PO (10:09)
[2019-12-05] MEDS: atorvastatin 40 mg Tablet 20 MG PO (10:10)
[2019-12-05] MEDS: cloNIDine 0.1 mg Tablet 0.2 MG PO (10:11)
[2019-12-05] MEDS: apixaban 5 mg Tablet PO (10:12)
[2019-12-05] MEDS: predniSONE 20 mg Tablet 40 MG PO (10:12)
[2019-12-05] MEDS: clopidogrel 75 mg Tablet PO (10:12)
[2019-12-05] MEDS: FUROsemide 40 mg Tablet PO (10:12)
[2019-12-05] MEDS: losartan 50 mg Tablet 25 MG PO (10:13)
[2019-12-05] MEDS: amiodarone 200 mg Tablet PO (10:13)
[2019-12-05] MEDS: terazosin 5 mg Capsule PO (10:13)
--- NOTE | 2019-12-05 11:14 | PM.DCS ---
Discharge Providers Date of Admission: 12/01/19 19:17 Date of Discharge: December 05, 2019 Attending Provider at Admission: Deneen Herrera MD Attending Provider at Discharge: Ramin Villagran MD Primary Care Provider: Sandy Cason Diagnoses at Discharge Discharge Diagnosis (1) Acute and chronic respiratory failure ([id number]): Status: Acute Problem details: Improved Qualifiers: Respiratory failure complication: hypoxia Qualified Code(s): J96.21 - Acute and chronic respiratory failure with hypoxia (2) Acute exacerbation of chronic obstructive airways disease: Status: Acute Problem details: Improved. Discharged on 5 days of prednisone (3) Diabetes mellitus: Status: Acute Problem details: Stable (4) CAD (coronary artery disease): Status: Acute Problem details: Stable (5) Atrial fibrillation: Status: Acute Problem details: Rate controlled Reason for Visit Reason for Visit: Reason For Visit: ACUTE RESPIRATORY FAILURE;COPD EXACERBATION Hospital Course Hospital Course: Ion presented to the hospital short of breath. He was diagnosed with a COPD exacerbation. He was placed on steroids, pulmonary toilet, IV antibiotic consisting of Levaquin. No definitive pneumonia was noted. CTA demonstrated no pulmonary embolism. He initially required BiPAP in the ICU, then transition to the floor. During his entire hospital course he improved daily. By time of discharge she was back to his baseline oxygen requirement. It was thought he could discharge home with home health. He will receive a home O2 evaluation prior to discharge. He will receive 5 more days of prednisone, 7 days of Levaquin, and have follow-up with his primary care provider. While in the hospital he did have significant urinary retention, with a history of symptoms going on for many months. He required Tinajero catheter placement for over 900 cc of urine in his bladder. His Hytrin, high dose was continued and he was discharged with his catheter for follow-up with urology. Physical Exam Narrative: EXAM NARRATIVE: General exam no apparent distress Cardiovascular regular rate and rhythm without murmur Lungs a few faint expiratory wheezes Abdomen is soft with positive bowel sounds Extremities no cyanosis clubbing or edema Urinary Catheter Management^: Tinajero: Cath Placed During This Visit: yes Urethral Indwelling: Yes Reason for Continuing Indwelling Catheter: Acute Urinary Retention or Obstruction Urinary Catheter Date of Insertion: 12/03/19 Urinary Catheter Time of Insertion: 08:55 Discharge Data Data Completed and Pending: Completed Studies During Hospitalization Category Date Time Status CT angio chest PE protcl 80371 Stat Cat Scan 12/01/19 16:59 Completed XR chest 1V amanda ble [id number] Urgent Exams 12/01/19 16:29 Completed Pending at discharge Category Date Time Status Blood Culture Sta t Lab 12/01/19 16:40 Results Sputum Culture an d Gram Stain Stat Lab 12/01/19 16:29 Uncollected Labs from last 24 hours 12/05/19 12/05/19 12/05/19 09:16 06:37 00:23 POC Glucose 117 44 177 12/04/19 12/04/19 12/04/19 20:42 16:22 11:12 POC Glucose 264 180 482 Vitals: Last Vital Signs Temp 98.1 F 12/05/19 08:00 Pulse 54 L 12/05/19 10:55 Resp 17 12/05/19 10:50 BP 137/64 12/05/19 10:13 Pulse Ox 99 12/05/19 10:50 Discharge Plan Discharge Patient Disposition: Home Health Service Condition: Stable Prescriptions: New prednisone 20 mg Tablet 40 mg PO DAILY Qty: 10 RF: 0 levofloxacin [Levaquin] 750 mg tablet 750 mg PO DAILY 7 Days Qty: 7 RF: 0 Continued furosemide 40 mg tablet 40 mg PO DAILY RF: 0 latanoprost 0.005 % drops 1 drp ophthalmic (eye) BEDTIME RF: 0 terazosin 5 mg capsule 5 mg PO BID RF: 0 albuterol sulfate 2.5 mg /3 mL (0.083 %) solution for nebulization 2.5 mg inhalation Q6H PRN (Reason: Shortness Of Breath) RF: 0 atorvastatin 10 mg tablet 10 mg PO DAILY RF: 0 theophylline 400 mg tablet extended release 24 hr 400 mg PO BEDTIME RF: 0 amiodarone 200 mg tablet 200 mg PO DAILY RF: 0 prednisone 5 mg tablet 5 mg PO EVERY OTHER DAY RF: 0 clopidogrel 75 mg tablet 75 mg PO DAILY RF: 0 clonidine HCl 0.2 mg tablet 0.2 mg PO TID RF: 0 metoprolol succinate 25 mg tablet extended release 24 hr 12.5 mg PO DAILY RF: 0 albuterol sulfate 90 mcg/actuation HFA aerosol inhaler 2 puff INHALATION Q6H PRN (Reason: Shortness Of Breath) RF: 0 olmesartan 20 mg tablet 10 mg PO DAILY RF: 0 Humalog KwikPen Insulin 100 unit/mL insulin pen See Rx Instructions .ROUTE .COMPLEX RF: 0 Spiriva with HandiHaler 18 mcg capsule, w/inhalation device 1 cap INHALATION DAILY RF: 0 Eliquis 5 mg tablet 5 mg PO BID RF: 0 Breo Ellipta 100-25 mcg/dose blister with device 1 ea INHALATION DAILY RF: 0 Tresiba FlexTouch U-200 200 unit/mL (3 mL) insulin pen 28 unit SUBCUT BEDTIME RF: 0 Discharge Orders: Discharge Order (Routine); Ordered 12/05/19 Ordered By: Ramin Villagran Referrals: Sandy Cason [Primary Care Provider] - 4-7 days Bi Marmolejo MD [Physician] - 7-10 days Discharge Diet: Diabetic Discharge Activity: Increase activity as tolerated Activity Restrictions/Additional Instructions: Home oxygen evaluation prior to discharge. Resume home dose of prednisone after prescribed dose on discharge Use your albuterol 4 times daily at home until back to baseline then change back to as needed Keep Tinajero catheter in, following up with urology in 7 to 10 days Discharge Attestations Time Spent in Discharge Care*: greater than 30 min Quality Metrics Clinical Quality Measures During this hospital stay, did patient experience: None Coding Level of Care Code Acute Watch Train Assembler for Owen Donahue Diagnoses Acute and chronic respiratory failure ([id number]) J96.21 Respiratory failure complication: hypoxia Acute exacerbation of chronic obstructive airways disease J44.1 Diabetes mellitus E11.9 CAD (coronary artery disease) I25.10 Atrial fibrillation I48.91
[2019-12-05 11:20] LABS: Glucose Point of Care 175 mg/dL (70-110)
--- NOTE | 2019-12-05 11:56 | PC.SOCIAL ---
pharmacy called and inquired about Levaquin and interacting with Amiodarone QT prolongation. Called Dr Fawad Villagran and aure to continue for the 7 days. updated pharmacy
== END 2019-12-05 14:30 | disposition home or self-care (01) | DRG 189 ==
LOC: ER 16:18 → ICU 19:29 → MEDSURG 12-02 13:54
PROVIDERS: Admitting Provider Student in an Organized Health Care Education/Training Program; Emergency Provider Family Medicine; PCP Nurse Practitioner Family; Visit Provider Internal Medicine
DX: J96.21 Acute and chronic respiratory failure with hypoxia (principal); J44.1 Chronic obstructive pulmonary disease with (acute) exacerbation; E11.9 Type 2 diabetes mellitus without complications; I25.10 Atherosclerotic heart disease of native coronary artery without angina pectoris; I48.91 Unspecified atrial fibrillation; I10 Essential (primary) hypertension; Z79.51 Long term (current) use of inhaled steroids; Z79.4 Long term (current) use of insulin; Z79.02 Long term (current) use of antithrombotics/antiplatelets
CPT/HCPCS: 12345; 36415; 36416; 36600; 51702; 71045; 71275; 80048; 80053; 81001; 82803; 82805; 82962; 83735; 83880; 84484; 85025; 85378; 87040; 87804; 93005; 94640; 94660; 94664; 96372; 96375; 97161; 97530; 99283; J0360; J1815; J1956; J2930; J3490; J7512; J7626; Q9967

== ENCOUNTER 2019-12-11 22:15 | Emergency (ER) | payer MEDICARE, SELFPAY ==
[2019-12-11 22:16] VITALS: BP 118/44; PULSE 55; RESP 24; TEMP 37; O2SAT 96; BMI 24.4
--- NOTE | 2019-12-11 22:20 | ED_ITS ---
Entered by Nnii Ewing, acting as scribe for Karina Steiner MD HPI - Male Genitourinary General: Chief complaint: Urogenital-Male Stated complaint: BLOOD IN URINE Time Seen by Provider: 12/11/19 22:16 Source: patient and EMS Mode of arrival: EMS History of Present Illness: HPI Narrative: 84 y/o male presents to the ED with complaint of hematuria. Family states he had the franco placed last week for an enlarged prostate. He has had intermittent blood in his urine for the past several days; however, today it seems to be worse/constant. He has also had increased weakness/swelling in his left leg. He reports having a pain in his groin. Complaint: other (hematuria) Onset (ago): day(s) Duration: progressively worsening Location: penis Severity: moderate Relieving factors: none Associated symptoms: Reports hematuria; Deny nausea or vomiting Review of Systems Const: Denies: fever, chills, body aches or change in appetite Eyes: Denies: blurry vision or eye discomfort ENMT: Denies: throat pain or dental pain Card: Denies: chest pain Resp: Denies: shortness of breath GI: Denies: abdominal pain, nausea, vomiting or diarrhea : Reports: blood in urine and genital pain Musc: Reports: extremity pain and extremity swelling; Denies: neck pain or back pain Neuro: Denies: headache Psych: Denies: depression Balaji/Lymph: Denies: easy bruising All/Imm: Denies: hives PFS ED PFSH: Medical History (Updated 12/12/19 @ 00:50 by Karina Steiner MD) Atrial fibrillation Rate controlled CAD (coronary artery disease) Stable Diabetes mellitus Stable Hyperlipidemia Hyperlipidemia Social History Smoking and tobacco status: former smoker Physical Exam Const: COMMON NORMALS: no apparent distress, oriented x3 and healthy appearing HENMT: COMMON NORMALS: normocephalic and head/scalp atraumatic HEAD & SCALP: normocephalic and atraumatic Eye: COMMON NORMALS: PERRL and EOMs intact bilaterally PUPIL: Yes PERRL Neck/C-Spine: COMMON NORMALS: full ROM and supple Chest: COMMONS NORMALS: inspection of chest normal and palpation of chest normal Resp: COMMON NORMALS: normal respiratory effort, no retractions, no use of accessory muscles and clear to auscultation bilaterally AUSCULTATION: clear to auscultation bilaterally Cardio: COMMON NORMALS: regular rate, regular rhythm and no murmurs RATE: regular rate RHYTHM: regular rhythm GI: COMMON NORMALS: normal to inspection, nondistended, normoactive bowel sounds, soft to palpation, non-tender and no masses PALPATION: Yes soft : OTHER: franco catheter in place Extremity: GENERAL: Yes edema (3+, left worse than right) Neuro: COMMON NORMALS: oriented x3, moves all extremities and no focal motor deficits Psych: COMMON NORMALS: mental status grossly normal, thought process normal and cooperative THOUGHT PROCESS: normal thought process Course Vital Signs: Vital signs: Vital Signs Temperature 98.6 F 12/11/19 22:16 Pulse Rate 61 12/11/19 23:47 Respiratory Rate 18 12/11/19 23:47 Blood Pressure 133/49 12/11/19 23:47 Pulse Oximetry 96 12/11/19 23:47 MDM - Male MDM Narrative: Medical decision making narrative: Patient presents here with hematuria likely from being on blood thinners and having a Franco in place. He has no signs of infection and CT scan here is normal. He has very little blood in the urine at this time. Franco was flushed. He does have lower extremity edema is chronic in nature. Ultrasound showed no sign of DVT. Patient given IV Lasix and he is to use compression stockings and elevate his legs. He is to follow-up with Marmolejo next week. Patient is to return if worsening. Lab Data: Labs: Lab Results 12/11/19 12/11/19 12/11/19 Range/Units 22:43 22:43 22:43 WBC 12.4 H (4.0-10.0) 10^3/ uL RBC 3.52 L (4.1-5.3) 10^6/u L Hgb 9.8 L (11.7-16.6) g/dL Hct 31.2 L (42.0-52.0) % MCV 88.6 (80-94) fL MCH 27.8 L (28.0-34.0) pg MCHC 31.4 (30.0-36.0) g/dL RDW 15.7 H (12.1-15.1) % Plt Count 216 (130-400) 10^3/c mm MPV 9.6 (7.4-10.4) fL Neut % (Auto) 90.0 % Lymph % (Auto) 2.6 % Grady % (Auto) 6.4 % Eos % (Auto) 0.2 % Baso % (Auto) 0.2 % Neut # (Auto) 11.2 H (1.8-7.7) 10^3/u L Lymph # (Auto) 0.3 L (0.8-4.8) 10^3/u L Grady # (Auto) 0.8 (0.2-0.9) 10^3/u L Eos # (Auto) 0.0 (0.0-0.8) 10^3/u L Baso # (Auto) 0.0 (0.0-0.1) 10^3/u L Nucleated RBC % (a uto) 0 % Nucleated RBCs # 0.0 /100WBC PT 16.80 H (10.5-13.3) SECO NDS INR 1.32 H (0.8-1.2) Sodium 135 L (136-145) mmol/L Potassium 5.4 H (3.5-5.1) mmol/L Chloride 99 (98-107) mmol/L Carbon Dioxide 28 (22-29) mmol/L Anion Gap 13.4 (5-19) BUN 78 H (8-23) mg/dL Creatinine 2.3 H (0.7-1.2) mg/dL Glucose 175 H (65-115) mg/dL Calcium 8.6 (8.5-10.5) mg/dL Total Bilirubin 0.3 (0.15-1.2) mg/dL AST 22 (0-40) U/L ALT 24 (0-41) U/L Alkaline Phosphata se 141 H (40-130) IU/L Total Protein 5.5 L (6.6-8.7) g/dL Albumin 3.0 L (3.5-5.2) g/dL Globulin 2.5 (1.3-4.6) g/dL Urine Color (Yellow) Urine Appearance (CLEAR) Urine pH (5-7) Ur Specific Gravit y (1.005-1.030) Urine Protein (Negative) Urine Glucose (UA) (Normal) Urine Ketones (Negative) Urine Blood (Negative) Urine Nitrate (Negative) Urine Bilirubin (NEGATIVE) Urine Urobilinogen (Negative) mg/dL Ur Leukocyte Sheila ase (Negative) Urine RBC (0-2) /hpf Urine WBC (0-5) /hpf Ur Squamous Epith Cells (0-5) Urine Bacteria (NONE) Urine Mucus 12/11/19 Range/Units 23:51 WBC (4.0-10.0) 10^3/ uL RBC (4.1-5.3) 10^6/u L Hgb (11.7-16.6) g/dL Hct (42.0-52.0) % MCV (80-94) fL MCH (28.0-34.0) pg MCHC (30.0-36.0) g/dL RDW (12.1-15.1) % Plt Count (130-400) 10^3/c mm MPV (7.4-10.4) fL Neut % (Auto) % Lymph % (Auto) % Grady % (Auto) % Eos % (Auto) % Baso % (Auto) % Neut # (Auto) (1.8-7.7) 10^3/u L Lymph # (Auto) (0.8-4.8) 10^3/u L Grady # (Auto) (0.2-0.9) 10^3/u L Eos # (Auto) (0.0-0.8) 10^3/u L Baso # (Auto) (0.0-0.1) 10^3/u L Nucleated RBC % (a uto) % Nucleated RBCs # /100WBC PT (10.5-13.3) SECO NDS INR (0.8-1.2) Sodium (136-145) mmol/L Potassium (3.5-5.1) mmol/L Chloride (98-107) mmol/L Carbon Dioxide (22-29) mmol/L Anion Gap (5-19) BUN (8-23) mg/dL Creatinine (0.7-1.2) mg/dL Glucose (65-115) mg/dL Calcium (8.5-10.5) mg/dL Total Bilirubin (0.15-1.2) mg/dL AST (0-40) U/L ALT (0-41) U/L Alkaline Phosphata se (40-130) IU/L Total Protein (6.6-8.7) g/dL Albumin (3.5-5.2) g/dL Globulin (1.3-4.6) g/dL Urine Color Yellow (Yellow) Urine Appearance Clear (CLEAR) Urine pH 5 (5-7) Ur Specific Gravit y 1.010 (1.005-1.030) Urine Protein Neg (Negative) Urine Glucose (UA) Norm (Normal) Urine Ketones Negative (Negative) Urine Blood 3+ H (Negative) Urine Nitrate Negative (Negative) Urine Bilirubin Neg (NEGATIVE) Urine Urobilinogen Norm (Negative) mg/dL Ur Leukocyte Sheila ase Negative (Negative) Urine RBC >100 H (0-2) /hpf Urine WBC None (0-5) /hpf Ur Squamous Epith Cells 0-4 H (0-5) Urine Bacteria Trace (NONE) Urine Mucus Trace Imaging Data: CT Abd/Pel: Radiologist's impression: Signed Patient: Ion Messina #: [id number] : 1935Acct#:[id number] Age/Sex: 84 / MADM Date: 12/11/19 Loc: ERRoom/Bed: Attending Dr: Ordering Provider/Ordering MD: Karina Steiner MD Date of Service: 12/11/19 Procedure(s): CT kidney stone [id number] Accession Number(s): [id number] Report Number: [id number] PROCEDURE INFORMATION: Exam: CT Abdomen And Pelvis Without Contrast Exam date and time: 12/11/2019 11:22 PM Age: 84 years old Clinical indication: Other: Hematuria TECHNIQUE: Imaging protocol: Computed tomography of the abdomen and pelvis without contrast. Total DLP: 1209.25 mGy-cm Radiation optimization: All CT scans at this facility use at least one of these dose optimization techniques: automated exposure control; mA and/or kV adjustment per patient size (includes targeted exams where dose is matched to clinical indication); or iterative reconstruction. COMPARISON: No relevant prior studies available. CTA chest 12/01/2019. FINDINGS: Lungs: Advanced bolus emphysema. Subsegmental parenchymal scar right lower lobe. Liver: Liver unremarkable. Gallbladder and bile ducts: Small amount of sludge in the gallbladder. No intra or extrahepatic biliary ectasia identified. Pancreas: Pancreas unremarkable. No visible pancreatic ductal ectasia. Spleen: Splenic calcified granulomas. Adrenals: Adrenal glands unremarkable. Kidneys and ureters: No hydronephrosis or hydroureter identified. No visible nephrolithiasis. Bilateral simple renal cysts. The largest inferior pole left kidney dimensions 57 mm by 41 mm by 45 mm. Superior pole simple cyst right kidney dimensions 39 mm x 37 mm x 38 mm.No further workup recommended. Renal arterial sclerosis. Stomach and bowel: Diverticulosis coli without evidence for diverticulitis. Constipation. Appendix: No evidence of appendicitis. Intraperitoneal space: Unremarkable. No free air. No significant fluid collection. Vasculature: The abdominal aorta is nonaneurysmal. Moderate arterial sclerotic disease. Cardiomegaly with coronary artery disease. Lymph nodes: Unremarkable. No enlarged lymph nodes. Bladder: Franco catheter within the urinary bladder. No visible bladder stone. Free air within the urinary bladder which may be iatrogenic. Unable to exclude acute cystitis however. Reproductive: Prostate hypertrophy. Bones/joints: No visible acute osseous abnormality. Soft tissues: Bilateral inguinal hernias. The left inguinal hernia contains a short segment small bowel loop without obstruction. The right inguinal hernia contains a short segment of small bowel without obstruction. CT/CT kidney stone [id number] IMPRESSION: 1. Free air within the urinary bladder which may be iatrogenic. Unable to exclude acute cystitis with confidence, however. 2. No evidence for hydronephrosis, hydroureter, nephrolithiasis, or ureterolithiasis. 3. Simple renal cortical cysts. 4. Diverticulosis coli without evidence for diverticulitis. 5. Bilateral inguinal hernias with short-segment small bowel loops incarcerated but without obstruction. 6. Small amount of sludge in the gallbladder. 7. Advanced bullous emphysema. COMMENTS: Consistent with the [employer]'s Incidental Findings Committee white paper (J Am Carol Radiol 2018): Any incidental cystic renal lesion classified in this report as too small to characterize or simple appearing is likely a benign cyst. No follow-up imaging is recommended for these lesions per consensus recommendations based on imaging criteria. Radiation Dose CTDIVOL = (mGy): DLP = 1209.25 (mGy-cm) US Vascular: My impression: no dvt EKG Data: EKG 1: Attestation: I personally reviewed and interpreted this EKG as follows: EKG Data: 12/11/19 EKG interpretation time: 22:28 Interpretation: Atrial flutter heart rate [address] or T wave abnormalities Discharge Plan Discharge Patient Disposition: Home, Self-Care Clinical Impression: Leg edema Hematuria Qualifiers: Hematuria type: gross Qualified Code(s): R31.0 - Gross hematuria Condition: Stable Prescriptions: No Action omeprazole 20 mg Tablet,Delayed Release (Dr/Ec) 20 mg PO DAILY PRN (Reason: Dyspepsia) RF: 0 furosemide 40 mg tablet 80 mg PO DAILY RF: 0 latanoprost 0.005 % drops 1 drp ophthalmic (eye) BEDTIME RF: 0 terazosin 5 mg capsule 5 mg PO BID RF: 0 albuterol sulfate 2.5 mg /3 mL (0.083 %) solution for nebulization 2.5 mg inhalation TID RF: 0 atorvastatin 10 mg tablet 10 mg PO DAILY RF: 0 theophylline 400 mg tablet extended release 24 hr 400 mg PO BEDTIME RF: 0 amiodarone 200 mg tablet 200 mg PO DAILY RF: 0 prednisone 5 mg tablet 5 mg PO EVERY OTHER DAY RF: 0 clopidogrel 75 mg tablet 75 mg PO DAILY RF: 0 clonidine HCl 0.2 mg tablet 0.2 mg PO TID RF: 0 metoprolol succinate 25 mg tablet extended release 24 hr 12.5 mg PO DAILY RF: 0 albuterol sulfate 90 mcg/actuation HFA aerosol inhaler 2 puff INHALATION Q6H PRN (Reason: Shortness Of Breath) RF: 0 olmesartan 20 mg tablet 10 mg PO DAILY RF: 0 insulin lispro [Humalog KwikPen Insulin] 100 unit/mL insulin pen See Rx Instructions .ROUTE .COMPLEX RF: 0 Spiriva with HandiHaler 18 mcg capsule, w/inhalation device 1 cap INHALATION DAILY RF: 0 Eliquis 5 mg tablet 5 mg PO BID RF: 0 Breo Ellipta 100-25 mcg/dose blister with device 1 ea INHALATION DAILY RF: 0 Tresiba FlexTouch U-200 200 unit/mL (3 mL) insulin pen 28 unit SUBCUT BEDTIME RF: 0 Discharge Orders: Discharge Order (Routine); Ordered 12/12/19 Ordered By: Karina Steiner Referrals: [facility] [Other] Sandy Cason [Primary Care Provider] - Bi Marmolejo MD [Physician] - 1-3 days Discharge Diet: Advance as tolerated Discharge Activity: Resume usual activity Patient Instructions: Acute Hematuria (ED) Coding Level of Care Code ED Pharmacy Student for Chg Fwd Exam Comprehensive The documentation recorded by the Gildardo gardiner Ashley, accurately reflects the service I personally performed and the decisions made by , Karina Steiner MD Dec 11, 2019 22:15
--- NOTE | 2019-12-11 22:23 | CTR_ITS ---
PROCEDURE INFORMATION: Exam: CT Abdomen And Pelvis Without Contrast Exam date and time: 12/11/2019 11:22 PM Age: 84 years old Clinical indication: Other: Hematuria TECHNIQUE: Imaging protocol: Computed tomography of the abdomen and pelvis without contrast. Total DLP: 1209.25 mGy-cm Radiation optimization: All CT scans at this facility use at least one of these dose optimization techniques: automated exposure control; mA and/or kV adjustment per patient size (includes targeted exams where dose is matched to clinical indication); or iterative reconstruction. COMPARISON: No relevant prior studies available. CTA chest 12/01/2019. FINDINGS: Lungs: Advanced bolus emphysema. Subsegmental parenchymal scar right lower lobe. Liver: Liver unremarkable. Gallbladder and bile ducts: Small amount of sludge in the gallbladder. No intra or extrahepatic biliary ectasia identified. Pancreas: Pancreas unremarkable. No visible pancreatic ductal ectasia. Spleen: Splenic calcified granulomas. Adrenals: Adrenal glands unremarkable. Kidneys and ureters: No hydronephrosis or hydroureter identified. No visible nephrolithiasis. Bilateral simple renal cysts. The largest inferior pole left kidney dimensions 57 mm by 41 mm by 45 mm. Superior pole simple cyst right kidney dimensions 39 mm x 37 mm x 38 mm.No further workup recommended. Renal arterial sclerosis. Stomach and bowel: Diverticulosis coli without evidence for diverticulitis. Constipation. Appendix: No evidence of appendicitis. Intraperitoneal space: Unremarkable. No free air. No significant fluid collection. Vasculature: The abdominal aorta is nonaneurysmal. Moderate arterial sclerotic disease. Cardiomegaly with coronary artery disease. Lymph nodes: Unremarkable. No enlarged lymph nodes. Bladder: Tinajero catheter within the urinary bladder. No visible bladder stone. Free air within the urinary bladder which may be iatrogenic. Unable to exclude acute cystitis however. Reproductive: Prostate hypertrophy. Bones/joints: No visible acute osseous abnormality. Soft tissues: Bilateral inguinal hernias. The left inguinal hernia contains a short segment small bowel loop without obstruction. The right inguinal hernia contains a short segment of small bowel without obstruction. CT/CT kidney stone [id number] IMPRESSION: 1. Free air within the urinary bladder which may be iatrogenic. Unable to exclude acute cystitis with confidence, however. 2. No evidence for hydronephrosis, hydroureter, nephrolithiasis, or ureterolithiasis. 3. Simple renal cortical cysts. 4. Diverticulosis coli without evidence for diverticulitis. 5. Bilateral inguinal hernias with short-segment small bowel loops incarcerated but without obstruction. 6. Small amount of sludge in the gallbladder. 7. Advanced bullous emphysema. COMMENTS: Consistent with the [employer]'s Incidental Findings Committee white paper (J Am Carol Radiol 2018): Any incidental cystic renal lesion classified in this report as too small to characterize or simple appearing is likely a benign cyst. No follow-up imaging is recommended for these lesions per consensus recommendations based on imaging criteria. Radiation Dose CTDIVOL = (mGy): DLP = 1209.25 (mGy-cm)
--- NOTE | 2019-12-11 22:26 | PC.NURSE ---
EKG done at 2222 and shown to ER doctor
[2019-12-11] MEDS: sodium chloride 0.9% 1,000 ML 999 ML IV ×2 (22:43→23:42)
[2019-12-11 22:57] LABS: Basophils % 0.2 %; Eosinophils % 0.2 %; Hematocrit 31.2 % (42.0-52.0); Hemoglobin 9.8 g/dL (11.7-16.6); Lymphocytes # 0.3 10^3/uL (0.8-4.8); Lymphocytes % 2.6 %; Mean Corpuscular HGB Conc 31.4 g/dL (30.0-36.0); Mean Corpuscular Hemoglobin 27.8 pg (28.0-34.0); Mean Corpuscular Volume 88.6 fL (80-94); Mean Platelet Volume 9.6 fL (7.4-10.4); Monocytes # 0.8 10^3/uL (0.2-0.9); Monocytes % 6.4 %; Neutrophils # 11.2 10^3/uL (1.8-7.7); Nucleated Red Blood Cells % 0 %; Platelet Count 216 10^3/cmm (130-400); Red Blood Count 3.52 10^6/uL (4.1-5.3); Red Cell Distribution Width 15.7 % (12.1-15.1); White Blood Count 12.4 10^3/uL (4.0-10.0)
[2019-12-11 23:09] LABS: Alanine Aminotransferase 24 U/L (0-41); Alkaline Phosphatase 141 IU/L (40-130); Anion Gap 13.4 (5-19); Aspartate Amino Transferase 22 U/L (0-40); Blood Urea Nitrogen 78 mg/dL (8-23); Calcium 8.6 mg/dL (8.5-10.5); Carbon Dioxide 28 mmol/L (22-29); Chloride 99 mmol/L (98-107); Globulin 2.5 g/dL (1.3-4.6); Glucose 175 mg/dL (65-115); Potassium 5.4 mmol/L (3.5-5.1); Sodium 135 mmol/L (136-145); Total Bilirubin 0.3 mg/dL (0.15-1.2); Total Protein 5.5 g/dL (6.6-8.7)
[2019-12-11 23:42] LABS: INR 1.32 (0.8-1.2)
[2019-12-11 23:47] VITALS: BP 133/49; PULSE 61; RESP 18; O2SAT 96
[2019-12-12 00:35] LABS: Bilirubin Urine Neg (NEGATIVE); Blood Urine 3+ (Negative); Glucose Urine UA Norm (Normal); Ketones Urine Negative (Negative); Leukocyte Esterase Urine Negative (Negative); Nitrate Urine Negative (Negative); Protein Urine Neg (Negative); Urine Appearance Clear (CLEAR); Urine Color Yellow (Yellow); Urobilinogen Urine Norm (Negative); pH Urine 5 (5-7)
[2019-12-12 00:38] LABS: Add Urine Culture? Yes; Bacteria Urine TRACE; Mucus Urine TRACE; RBC Urine >100 /hpf (0-2); Squamous Epithelial Cell Urine 0-4 (0-5)
[2019-12-12] MEDS: FUROsemide 10 mg/mL SDV 10mL 60 MG IVP (01:09)
[2019-12-12 04:19] VITALS: BP 137/63; PULSE 55; RESP 19; O2SAT 97
[2019-12-12 06:46] VITALS: BP 125/56; PULSE 62; RESP 19; O2SAT 94
--- NOTE | 2019-12-12 22:23 | USCV_ITS ---
Ion Messina Age: 84 Gender: M : 1935 Exam Date: 12/12/2019 00:14 Ordering Phys: Karina Steiner MD Technologist: Yvan Buck Exam Location: [facility] [place] Indication: LT LEG PAIN AND SWELLING HISTORY: Lower extremity swelling. PROCEDURES: Venous duplex imaging was performed in only the left lower extremity. The following venous structures were evaluated: common femoral vein, profunda vein, proximal portion of the greater saphenous vein, superficial femoral vein, and the popliteal vein. In addition, the posterior tibial and peroneal trunk were evaluated. Serial compression, augmentation maneuvers, and spectral Doppler flow evaluation were performed. FINDINGS: Normal 2-D Doppler and augmentation and compressibility throughout the lower extremity venous structures. Additional imaging through the proximal calf veins also reveals no thrombus. Limited evaluation of the greater saphenous vein is patent with no thrombus. There is subcutaneous left lower extremity edema noted. CONCLUSIONS No DVT left lower extremity. There is subcutaneous left lower extremity edema noted. Dr. Enedina Yeh DO (Electronically Signed) Final Date: 12 December 2019 09:31 S
--- NOTE | 2019-12-13 11:14 | DCPLANNER ---
crane manager had message to schedule a follow up appointment for patient with Dr. Marmolejo. crane manager called the office of Dr. Marmolejo, spoke with Abigail, gave clinic patients information. crane manager was told that patients information would be printed and given to Michelle for review. Clinic will call patient with appointment information, window caser will call for appointment information.
--- NOTE | 2019-12-18 12:32 | DCPLANNER ---
Patient had an appointment scheduled for 12.16.[address] Marmolejo, appointment was cancelled.
== END 2019-12-12 07:25 | disposition home or self-care (01) ==
PROVIDERS: Emergency Provider Emergency Medicine; PCP Nurse Practitioner Family
DX: R31.0 Gross hematuria (principal); R60.9 Edema, unspecified; I48.91 Unspecified atrial fibrillation; I25.10 Atherosclerotic heart disease of native coronary artery without angina pectoris; E11.9 Type 2 diabetes mellitus without complications; E78.5 Hyperlipidemia, unspecified; Z87.891 Personal history of nicotine dependence; Z79.01 Long term (current) use of anticoagulants; Z79.4 Long term (current) use of insulin; Z79.899 Other long term (current) drug therapy
CPT/HCPCS: 12345; 36415; 74176; 80053; 81001; 85025; 85610; 87086; 93971; 96360; 96375; 99283; A9270; J1940; J7030

== ENCOUNTER 2019-12-12 13:50 | Outpatient (CLI) | payer MEDICARE, SELFPAY ==
[2019-12-12 14:18] LABS: Basophils % 0.2 %; Eosinophils % 0.2 %; Hemoglobin 9.5 g/dL (11.7-16.6); Lymphocytes # 0.4 10^3/uL (0.8-4.8); Lymphocytes % 2.8 %; Mean Corpuscular HGB Conc 31.7 g/dL (30.0-36.0); Mean Corpuscular Volume 88.5 fL (80-94); Mean Platelet Volume 10.7 fL (7.4-10.4); Monocytes # 0.6 10^3/uL (0.2-0.9); Monocytes % 4.9 %; Neutrophils # 11.7 10^3/uL (1.8-7.7); Neutrophils % 91.2 %; Nucleated Red Blood Cells % 0 %; Platelet Count 206 10^3/cmm (130-400); Red Blood Count 3.39 10^6/uL (4.1-5.3); Red Cell Distribution Width 15.8 % (12.1-15.1); White Blood Count 12.8 10^3/uL (4.0-10.0)
[2019-12-12 14:33] LABS: INR 1.43 (0.8-1.2)
== END 2019-12-12 13:51 | disposition home or self-care (01) ==
LOC: LAB 13:53
PROVIDERS: PCP Nurse Practitioner Family; Visit Provider Internal Medicine
DX: J44.9 Chronic obstructive pulmonary disease, unspecified (principal)
CPT/HCPCS: 85025; 85610

== ENCOUNTER 2019-12-13 13:48 | Inpatient (IN) | payer MEDICARE, SELFPAY ==
[2019-12-13] VITALS (8 sets, daily range): BP systolic 102–176; BP diastolic 44–87; PULSE 53–90; RESP 13–20; TEMP 36.8–37.1; O2SAT 91–99; BMI 23.0
--- NOTE | 2019-12-13 14:03 | XR_ITS ---
WS: [id number] XR chest 1V portable [id number] REASON FOR EXAM: cough FINDINGS: Reticular nodular pattern throughout both lung childress is seen. The heart is not enlarged as previous coronary bypass changes. The hilum and apices show granulomas in the gerson lungs and apices appear to be normal. There is evidence of chronic the Siemens this changes also. The overall appearance the chest is similar to December 01, 2019. XR/XR chest 1V portable [id number] IMPRESSION: Chronic interstitial fibrosis with emphysema. No active infiltrates.
--- NOTE | 2019-12-13 14:04 | ECG_ITS ---
Measurements Intervals [place] Rate: 64 P: NE: 0 QRS: -49 QRSD: 106 T: 74 QT: 390 QTc: 403 ATRIAL FLUTTER LEFT ANTERIOR FASCICULAR BLOCK [QRS AXIS <= -45, QR IN I, RS IN II] Compared to ECG 12/02/2019 07:21:21 Sinus rhythm no longer present Myocardial infarct finding no longer present Electronically Signed On 12-13-2019 15:18:01 VACUUM DRIER OPERATOR by Sona Antonio M.D. [id number] f
--- NOTE | 2019-12-13 14:10 | ED_ITS ---
Entered by Comfort Shrestha, acting as scribe for Shelly Grullon Dec 13, 2019 13:48 HPI - General Adult General: Chief complaint: General Medical Stated complaint: WEAKNESS Time Seen by Provider: 12/13/19 14:03 History of Present Illness: HPI narrative: Mr. Messina is a nice 84-year-old male who comes in complaining of increased weakness. He is also had leg swelling in both symptoms have been progressively worse for the past week. He has been short of breath but this is no different than his normal. He was noted to have a low blood pressure at home by his home health nurse but he is not certain what that reading was. He had a catheter placed 3 days ago because he had evidence of urinary retention by bladder scanner performed by his home health nurse. He is unaware if he had any fever. He denies any chest pain, headache, abdominal or back pain but he has had abdominal bloating. Associated symptoms: Deny chest pain, confusion, diaphoresis, dyspnea, headache(s), nausea, rash, palpitations, syncope or vomiting Review of Systems Const: Denies: fever, chills, body aches, fatigue or diaphoresis Eyes: Denies: change in vision or blurry vision ENMT: Denies: throat pain, painful swallowing, hoarseness, ear pain, ear discharge, Change in hearing or nasal discharge Card: Denies: chest pain, palpitations, irregular heart rhythm, syncope, pre- syncope, shortness of breath on exertion or shortness of breath when lying down Resp: Denies: shortness of breath, productive cough, non-productive cough, wheezing, coughing up blood or chest congestion GI: Denies: abdominal pain, nausea, vomiting, vomiting blood, coffee grounds in vomit, diarrhea, constipation, cramping, blood in stool or black tarry stool : Denies: flank pain, difficulty urinating, painful urination, urinary frequency, urinary urgency, decreased urine ouput, urinary incontinence or blood in urine Musc: Denies: neck pain, back pain, extremity pain, extremity swelling, joint pain, joint swelling, joint warmth or joint stiffness Skin/Breast: Denies: rash, skin tenderness or yellow skin Neuro: Denies: headache, numbness in extremities, weakness in extremities, changes in sensation, lack of coordination, difficulty walking, dizziness, vertigo or confusion Endo: Denies: excessive thirst, tired all the time, cold intolerance, excessive sweating, flushing or hot flashes Balaji/Lymph: Denies: easy bruising, easy bleeding, petechiae or enlarged lymph nodes All/Imm: Denies: hives, throat swelling, tongue swelling, facial swelling or acute wheezing PFSH ED PFSH: Medical History Atrial fibrillation Rate controlled CAD (coronary artery disease) Stable Diabetes mellitus Stable Hyperlipidemia Hyperlipidemia Surgical History Hx of CABG Social History Smoking and tobacco status: former smoker Physical Exam Const: COMMON NORMALS: no apparent distress, oriented x3, no limitations, healthy appearing and well nourished EXAM LIMITATIONS: no altered mental status GENERAL APPEARANCE: cooperative, well kempt and well developed ORIENTATION/CONSCIOUSNESS: Yes awake HENMT: COMMON NORMALS: normocephalic, head/scalp atraumatic, hearing grossly normal bilaterally, external ears normal, EAC's normal, external nose normal and moist oral mucous membranes HEAD & SCALP: normal to inspection, normocephalic and atraumatic FACE & SINUS: normal facial exam and face symmetric NOSE: external nose normal and nares normal EXTERNAL EAR: Yes external ears normal EXTERNAL AUDITORY CANAL: EAC's normal MOUTH: oral and palatal mucosa normal and tongue normal Eye: COMMON NORMALS: PERRL, EOMs intact bilaterally, conjunctivae normal and no scleral icterus GENERAL EYE: normal appearance of both eyes and normal light reflex CONJUNCTIVA: Yes conjunctivae normal SCLERA: sclerae normal CORNEA: Yes corneas normal PUPIL: Yes PERRL DIRECT OPHTHALMOSCOPY: Yes normal light reflex Neck/C-Spine: COMMON NORMALS: full ROM, no lymphadenopathy, supple, no meningeal signs and no JVD GENERAL: Yes normal visual inspection and Yes trachea midline CERVICAL SPINE: Yes cervical ROM normal Chest: COMMONS NORMALS: inspection of chest normal and palpation of chest normal Resp: COMMON NORMALS: normal respiratory effort, no retractions, no use of accessory muscles and clear to auscultation bilaterally EFFORT & INSPECTION: Yes able to speak in complete sentences AUSCULTATION: clear to auscultation bilaterally Cardio: COMMON NORMALS: no JVD, regular rate, regular rhythm, S1 normal heart sound, S2 normal heart sound, no gallops, no clicks, no murmurs and no rub JUGULAR VENOUS DISTENTION: no JVD RATE: regular rate RHYTHM: regular rhythm HEART SOUNDS: S1 normal and S2 normal GI: COMMON NORMALS: soft to palpation, non-tender, no hepatosplenomegaly and no masses INSPECTION: Yes normal to inspection PALPATION: Yes soft and Yes no hepatosplenomegaly : COMMON NORMALS: Yes no CVA tenderness BLADDER/KIDNEY EXAM: Yes no CVA tenderness Back/Pelvis: COMMON NORMALS: no CVA tenderness, thoracic and lumbar spine normal to inspection, no thoracic nor lumbar tenderness and thoraco-lumbar ROM normal Extremity: COMMON NORMALS: normal to inspection, full ROM, normal capillary refill, no joint enlargement and no calf tenderness NARRATIVE EXTREMITY EXAM: Bilateral lower extremities with edema. Neuro: COMMON NORMALS: oriented x3, CN's II-XII intact bilaterally, moves all extremities, no focal motor deficits and no sensory deficits noted MENINGEAL SIGNS: Yes no meningeal signs Psych: COMMON NORMALS: mental status grossly normal, thought process normal, cooperative, affect normal, speech normal and activity/motor behavior normal APPEARANCE: Yes well kempt SPEECH: Yes normal speech THOUGHT PROCESS: normal thought process Skin: COMMON NORMALS: no rashes or lesions noted, skin turgor normal, no ja undice, no petechiae and no mottling GENERAL SKIN EXAM: no rashes or lesions noted and turgor normal Course Vital Signs: Vital signs: Vital Signs Temperature 98.7 F 12/13/19 13:48 Pulse Rate 84 12/13/19 16:00 Respiratory Rate 14 12/13/19 16:00 Blood Pressure 125/59 12/13/19 16:00 Pulse Oximetry 95 12/13/19 16:00 MDM - General Adult MDM Narrative: Medical decision making narrative: Ion is an 84-year-old male who comes in with generalized weakness and increased leg swelling. I do not believe he has any risk for DVT as he is on Eliquis already. The patient looks to be in a exacerbation of heart failure with elevated cardiac enzymes which I believe are secondary to this. EKG shows no sign of heart attack. His EKG is at its baseline with a right bundle branch block. The case was discussed with Dr. Whitlock and he is agreeable to admission. Lab Data: Attestation: I reviewed the patient's lab results. Labs: Lab Results 12/13/19 12/13/19 12/13/19 Range/Units 14:22 14:26 14:26 WBC 15.2 H (4.0-10.0) 10^3/ uL RBC 3.70 L (4.1-5.3) 10^6/u L Hgb 10.7 L (11.7-16.6) g/dL Hct 33.1 L (42.0-52.0) % MCV 89.5 (80-94) fL MCH 28.9 (28.0-34.0) pg MCHC 32.3 (30.0-36.0) g/dL RDW 15.9 H (12.1-15.1) % Plt Count 218 (130-400) 10^3/c mm MPV 10.4 (7.4-10.4) fL Neut % (Auto) 89.7 % Lymph % (Auto) 3.1 % [place]ois % (Auto) 5.6 % Eos % (Auto) 0.7 % Baso % (Auto) 0.1 % Neut # (Auto) 13.7 H (1.8-7.7) 10^3/u L Lymph # (Auto) 0.5 L (0.8-4.8) 10^3/u L [place] # (Auto) 0.9 (0.2-0.9) 10^3/u L Eos # (Auto) 0.1 (0.0-0.8) 10^3/u L Baso # (Auto) 0.0 (0.0-0.1) 10^3/u L Nucleated RBC % (a uto) 0 % Nucleated RBCs # 0.0 /100WBC PT 16.50 H (10.5-13.3) SECO NDS INR 1.29 H (0.8-1.2) Specimen Type Arterial Sample Site Radial, right ABG pH 7.46 H (7.35-7.45) ABG pCO2 40.3 (35-45) mmHg ABG pO2 78.7 L (80.0-100.0) mmH g ABG HCO3 28.3 H (22-26) mmol/L ABG Base Excess 4.1 H (-2.0-2.0) mmol/ L Tye Test Pos Hematocrit 32.0 L (42-52) % O2 Delivery Device Nc O2 Liters/Min 4.0 % Ambulatory Care Coordinator ID jmn Sodium Potassium Chloride Carbon Dioxide Anion Gap BUN Creatinine GFR Calculation Glucose Lactic Acid (0.5-2.2) mmol/L Calcium Magnesium Total Bilirubin AST ALT Alkaline Phosphata se Creatine Kinase Troponin T Baselin e (0-15) ng/mL NT-Pro-B Natriuret Pep Total Protein Albumin Globulin Ethyl Alcohol 12/13/19 12/13/19 12/13/19 Range/Units 14:26 14:26 14:26 WBC (4.0-10.0) 10^3/ uL RBC (4.1-5.3) 10^6/u L Hgb (11.7-16.6) g/dL Hct (42.0-52.0) % MCV (80-94) fL MCH (28.0-34.0) pg MCHC (30.0-36.0) g/dL RDW (12.1-15.1) % Plt Count (130-400) 10^3/c mm MPV (7.4-10.4) fL Neut % (Auto) % Lymph % (Auto) % [place] % (Auto) % Eos % (Auto) % Baso % (Auto) % Neut # (Auto) (1.8-7.7) 10^3/u L Lymph # (Auto) (0.8-4.8) 10^3/u L [place] # (Auto) (0.2-0.9) 10^3/u L Eos # (Auto) (0.0-0.8) 10^3/u L Baso # (Auto) (0.0-0.1) 10^3/u L Nucleated RBC % (a uto) % Nucleated RBCs # /100WBC PT (10.5-13.3) SECO NDS INR (0.8-1.2) Specimen Type Sample Site ABG pH (7.35-7.45) ABG pCO2 (35-45) mmHg ABG pO2 (80.0-100.0) mmH g ABG HCO3 (22-26) mmol/L ABG Base Excess (-2.0-2.0) mmol/ L Tye Test Hematocrit (42-52) % O2 Delivery Device O2 Liters/Min % Ambulatory Care Coordinator ID Sodium Cancelled Potassium Cancelled Chloride Cancelled Carbon Dioxide Cancelled Anion Gap Cancelled BUN Cancelled Creatinine Cancelled GFR Calculation Cancelled Glucose Cancelled Lactic Acid 1.2 (0.5-2.2) mmol/L Calcium Cancelled Magnesium Cancelled Total Bilirubin Cancelled AST Cancelled ALT Cancelled Alkaline Phosphata se Cancelled Creatine Kinase Cancelled Troponin T Baselin e 133 H* (0-15) ng/mL NT-Pro-B Natriuret Pep Cancelled Total Protein Cancelled Albumin Cancelled Globulin Cancelled Ethyl Alcohol Cancelled 12/13/19 Range/Units 15:37 WBC (4.0-10.0) 10^3/ uL RBC (4.1-5.3) 10^6/u L Hgb (11.7-16.6) g/dL Hct (42.0-52.0) % MCV (80-94) fL MCH (28.0-34.0) pg MCHC (30.0-36.0) g/dL RDW (12.1-15.1) % Plt Count (130-400) 10^3/c mm MPV (7.4-10.4) fL Neut % (Auto) % Lymph % (Auto) % [place] % (Auto) % Eos % (Auto) % Baso % (Auto) % Neut # (Auto) (1.8-7.7) 10^3/u L Lymph # (Auto) (0.8-4.8) 10^3/u L [place] # (Auto) (0.2-0.9) 10^3/u L Eos # (Auto) (0.0-0.8) 10^3/u L Baso # (Auto) (0.0-0.1) 10^3/u L Nucleated RBC % (a uto) % Nucleated RBCs # /100WBC PT (10.5-13.3) SECO NDS INR (0.8-1.2) Specimen Type Sample Site ABG pH (7.35-7.45) ABG pCO2 (35-45) mmHg ABG pO2 (80.0-100.0) mmH g ABG HCO3 (22-26) mmol/L ABG Base Excess (-2.0-2.0) mmol/ L Tye Test Hematocrit (42-52) % O2 Delivery Device O2 Liters/Min % Ambulatory Care Coordinator ID Sodium 135 L Potassium 4.4 Chloride 97 L Carbon Dioxide 29 Anion Gap 13.4 BUN 68 H Creatinine 1.8 H GFR Calculation Glucose 93 Lactic Acid (0.5-2.2) mmol/L Calcium 8.7 Magnesium 2.5 H Total Bilirubin 0.4 AST 24 ALT 24 Alkaline Phosphata se 129 Creatine Kinase 50 Troponin T Baselin e (0-15) ng/mL NT-Pro-B Natriuret Pep 1557 H Total Protein 5.6 L Albumin 3.0 L Globulin 2.6 Ethyl Alcohol < 10 Imaging Data^: CXR: Radiologist's impression: [place] [address] XRay Report Signed Patient: Ion Messina #: [id number] : 1935Acct#:[id number] Age/Sex: 84 / MADM Date: 12/13/19 Loc: ERRoom/Bed: Attending Dr: Ordering Provider/Ordering MD: Shelly Grullon DO Date of Service: 12/13/19 Procedure(s): XR chest 1V portable [id number] Accession Number(s): [id number] Report Number: [id number] WS: [id number] XR chest 1V portable [id number] REASON FOR EXAM: cough FINDINGS: Reticular nodular pattern throughout both lung childress is seen. The heart is not enlarged as previous coronary bypass changes. The hilum and apices show granulomas in the gerson lungs and apices appear to be normal. There is evidence of chronic the Siemens this changes also. The overall appearance the chest is similar to December 01, 2019. XR/XR chest 1V portable [id number] IMPRESSION: Chronic interstitial fibrosis with emphysema. No active infiltrates. Dictated By:Trevor Medley DO Signed By:Trevor Medley DOSigned Date/Time:12/13/19 1424 DD/ EKG Data^: EKG 1: Attestation: I personally reviewed and interpreted this EKG as follows: EKG interpretation date: 12/13/19 EKG interpretation time: 14:22 Interpretation: Atrial fibrillation/flutter with a ventricular rate of 64 beats a minute, left axis deviation, left anterior fascicular block, nonspecific ST-T wave changes, baseline artifact present. Atrial flutter rhythm is new since previous. Computer generated interpretation: Chest X-Ray 12/13/19 14:03 IMPRESSION: Chronic interstitial fibrosis with emphysema. No active infiltrates. Discharge Plan Discharge Patient Disposition: Placed in Observation Clinical Impression: Congestive heart failure (CHF) Qualifiers: Heart failure type: unspecified Heart failure chronicity: acute on chronic Qualified Code(s): I50.9 - Heart failure, unspecified Condition: Stable Referrals: [facility] [Other] Sandy Cason [Primary Care Provider] - Coding Level of Care Code ED Pipeline Operator for Chg Fwd Exam Comprehensive The documentation recorded by the Fady gardiner Valerie R, accurately reflects the service I personally performed and the decisions made by Yadi rendon Eli N Dec 13, 2019 13:48
[2019-12-13 14:34] LABS: Basophils % 0.1 %; Eosinophils # 0.1 10^3/uL (0.0-0.8); Eosinophils % 0.7 %; Hematocrit 33.1 % (42.0-52.0); Hemoglobin 10.7 g/dL (11.7-16.6); Lymphocytes # 0.5 10^3/uL (0.8-4.8); Lymphocytes % 3.1 %; Mean Corpuscular HGB Conc 32.3 g/dL (30.0-36.0); Mean Corpuscular Hemoglobin 28.9 pg (28.0-34.0); Mean Corpuscular Volume 89.5 fL (80-94); Mean Platelet Volume 10.4 fL (7.4-10.4); Monocytes # 0.9 10^3/uL (0.2-0.9); Monocytes % 5.6 %; Neutrophils # 13.7 10^3/uL (1.8-7.7); Neutrophils % 89.7 %; Nucleated Red Blood Cells % 0 %; Platelet Count 218 10^3/cmm (130-400); Red Cell Distribution Width 15.9 % (12.1-15.1); White Blood Count 15.2 10^3/uL (4.0-10.0)
[2019-12-13 14:36] LABS: ABG PCO2 40.3 mmHg (35-45); ABG PH Result 7.46 (7.35-7.45); Base Excess ABG 4.1 mmol/L (-2.0-2.0); Blood Gas Allen Test Pos; Blood Gas Sample Site Radial, right; Blood Gas Sample Type Arterial; HCO3 ABG 28.3 mmol/L (22-26); Oxygen Device NC; PO2 ABG 78.7 mmHg (80.0-100.0)
[2019-12-13 14:49] LABS: Lactic Sepsis W/Reflex 1.2 mmol/L (0.5-2.2)
[2019-12-13 14:53] LABS: INR 1.29 (0.8-1.2)
[2019-12-13 15:07] LABS: Troponin(5th) Baseline 133 ng/mL (0-15)
--- NOTE | 2019-12-13 15:11 | ECG_ITS ---
Measurements Intervals [place] Rate: 56 P: DC: 0 QRS: -32 QRSD: 145 T: 80 QT: 455 QTc: 441 ATRIAL FLUTTER WITH SLOW VENTRICULAR RESPONSE WITH ABERRANT CONDUCTION OR VENTRICULAR PREMATURE COMPLEXES LEFT AXIS DEVIATION [QRS AXIS < -30] INTRAVENTRICULAR CONDUCTION DELAY [130+ ms QRS DURATION] Compared to ECG 12/13/2019 14:22:12 Ventricular premature complex(es) now present Left-axis deviation now present Intraventricular conduction delay now present Left anterior fascicular block no longer present Electronically Signed On 12-13-2019 16:46:33 PLAN COORDINATOR by Sona Antonio M.D. [id number]
--- NOTE | 2019-12-13 15:14 | PC.NURSE ---
SKin tear with surrounding bruising is noted to the left posterior hand, area has been dressed with clean, dry bandage. 4+ pitting edema is noted in the BLE, with weeping and small open areas noted to the posterior LLE.
--- NOTE | 2019-12-13 16:04 | ECG_ITS ---
Measurements Intervals [place] Rate: 65 P: RI: 0 QRS: -48 QRSD: 137 T: 86 QT: 409 QTc: 426 ATRIAL FLUTTER INTRAVENTRICULAR CONDUCTION DELAY [130+ ms QRS DURATION] Compared to ECG 12/13/2019 14:22:12 Intraventricular conduction delay now present Left anterior fascicular block no longer present Electronically Signed On 12-14-2019 8:23:49 PHYSICAL THERAPY COORDINATOR by Sona Antonio M.D. [id number] f
[2019-12-13 16:10] LABS: Alanine Aminotransferase 24 U/L (0-41); Alkaline Phosphatase 129 IU/L (40-130); Anion Gap 13.4 (5-19); Aspartate Amino Transferase 24 U/L (0-40); Blood Urea Nitrogen 68 mg/dL (8-23); Calcium 8.7 mg/dL (8.5-10.5); Carbon Dioxide 29 mmol/L (22-29); Chloride 97 mmol/L (98-107); Creatine Phosphokinase 50 U/L (39-308); Globulin 2.6 g/dL (1.3-4.6); Glucose 93 mg/dL (65-115); Magnesium 2.5 mg/dL (1.7-2.3); NT Pro B Type Natriuretic Pept 1557 pg/mL (0-450); Potassium 4.4 mmol/L (3.5-5.1); Sodium 135 mmol/L (136-145); Total Bilirubin 0.4 mg/dL (0.15-1.2); Total Protein 5.6 g/dL (6.6-8.7)
[2019-12-13 16:15] LABS: Alcohol Level < 10 mg/dL (0-10)
[2019-12-13] MEDS: FUROsemide 10 mg/mL SDV 4mL 40 MG IVP (17:18)
[2019-12-13] MEDS: nitroglycerin 1 gm/inch oint Pkt 1 INCH TOPICAL (17:18)
[2019-12-13 17:19] LABS: Troponin 5 2HR 120.2 ng/mL (0-15); Troponin 5 2HR Delta -12.8 ABS# (0-10)
--- NOTE | 2019-12-13 17:59 | P.HP_ITS ---
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 An, aortic valve replacement, hypertension, hyperlipidemia, chronic atrial fibrillation and flutter on Eliquis, diastolic CHF Patient was recently mated to [facility] for COPD exacerbation, was actually made to the ICU, treated for COPD exacerbation received BiPAP, did well, discharged on steroids and antibiotics. Patient states that his main complaint is bilateral lower extremity swelling, weeping, edema, difficulty ambulating. Patient states that he saw his primary care provider and his dose of Lasix was increased to 40 twice daily, however he continues to have swelling, weeping, edema, open sores of his bilateral lower extremities. Patient also complains of shortness of breath with exertion, no wheezing, productive cough white phlegm, no fevers, no chills, quit smoking 10 years ago. Patient states that he has had a poor appetite, decreased oral intake, no nausea, no vomiting, does feel lightheaded, and dizzy at times. Patient states that this morning he got up to use the bathroom, he had a mechanical fall in the bathroom, had head trauma, no loss of consciousness, no syncopal episodes, no seizure-like episodes, no facial droop, no paralysis, no paresthesias, no blood like paralysis of upper lower extremities, no difficulty coordinating. Patient states that he lives with his , he ambulates with a walker, has been having increased fatigue and weakness over the last few weeks, does receive home health care. Patient states that if we could just pull some of the fluid off his lower extremities, he would be able to walk, and that is why he is here in the hospital. Review of Systems Const: Reports: fatigue and malaise; Denies: fever or chills Eyes: Denies: change in vision or blurry vision ENMT: Denies: nasal congestion Resp: Reports: shortness of breath and productive cough; Denies: wheezing GI: Denies: abdominal pain, nausea, vomiting, vomiting blood, diarrhea, constipation, blood in stool or black tarry stool : Denies: flank pain, difficulty urinating, painful urination or urinary frequency Musc: Denies: neck pain or back pain Skin/Breast: Denies: rash Neuro: Denies: headache, dizziness or vertigo Psych: Denies: anxiety or depression Endo: Denies: excessive urination or excessive thirst Medications/Allergies Home Medications Medication Instructions Recorded Confirmed Last Taken Type acetaminophen [Tylenol] 325 mg PO QID PRN 12/13/19 12/13/19 Unknown History acetaminophen-codeine See Rx Instructions .ROUTE 12/13/19 12/13/19 Unknown History [Tylenol-Codeine #3] .COMPLEX PRN docusate sodium 100 mg PO BID 12/13/19 12/13/19 12/13/19 History levofloxacin 750 mg PO DAILY 12/13/19 12/13/19 12/13/19 History nitroglycerin 0.4 mg SUBLINGUAL Q5M PRN 12/13/19 12/13/19 Unknown History potassium chloride [Klor-Con 10] 10 meq PO DAILY 12/13/19 12/13/19 12/13/19 History Allergies Allergy/AdvReac Type Severity Reaction Status Date / Time ezetimibe [From Vytorin] Allergy ADR-Cramping Verified 12/13/19 13:56 of the Muscles Penicillins Allergy ALGY-Rash Verified 12/13/19 13:56 simvastatin [From Vytorin] Allergy ADR-Cramping Verified 12/13/19 13:56 of the Muscles PFSH Acute PFSH: Medical History Atrial fibrillation Rate controlled CAD (coronary artery disease) Stable Diabetes mellitus Stable Hyperlipidemia Hyperlipidemia Surgical History Hx of CABG Social History Smoking and tobacco status: former smoker Vitals/I&O/Wt Last Vital Signs Temp 98.7 F 12/13/19 13:48 Pulse 84 12/13/19 16:00 Resp 14 12/13/19 16:00 BP 125/59 12/13/19 16:00 Pulse Ox 95 12/13/19 16:00 Weight last 48 hrs Weight 74.843 kg Physical Exam Const: COMMON NORMALS: no apparent distress and oriented x3 GENERAL APPEARANCE: cooperative and comfortable HENMT: COMMON NORMALS: normocephalic HEAD & SCALP: normocephalic Eye: COMMON NORMALS: PERRL, EOMs intact bilaterally and no papilledema GENERAL EYE: normal appearance of both eyes PUPIL: Yes PERRL DIRECT OPHTHALMOSCOPY: Yes no papilledema Neck/C-Spine: COMMON NORMALS: full ROM, no lymphadenopathy, no JVD and thyroid normal THYROID: thyroid normal Lymph: LYMPHATIC: no lymphadenopathy noted Resp: COMMON NORMALS: normal respiratory effort, no retractions, no use of accessory muscles and clear to auscultation bilaterally AUSCULTATION: clear to auscultation bilaterally Cardio: COMMON NORMALS: no JVD, regular rate, regular rhythm, S1 normal heart sound, S2 normal heart sound, no gallops, no clicks and no murmurs RATE: regular rate RHYTHM: regular rhythm HEART SOUNDS: S1 normal and S2 normal GI: COMMON NORMALS: normal to inspection, nondistended, normoactive bowel sounds, soft to palpation, non-tender and no hepatosplenomegaly PALPATION: Yes soft and Yes no hepatosplenomegaly Extremity: COMMON NORMALS: normal to inspection and full ROM NARRATIVE EXTREMITY EXAM: 2+ pitting edema,, weeping, bilaterally Left upper arm, swelling, erythema, bleeding at the thumb, hematoma Right upper extremity, swelling, erythema, hematomas Neuro: COMMON NORMALS: oriented x3, CN's II-XII intact bilaterally, moves all extremities and no focal motor deficits Psych: COMMON NORMALS: mental status grossly normal, thought process normal and cooperative THOUGHT PROCESS: normal thought process Data : 12/13/19 14:26 12/13/19 15:37 A&P Assessment and plan (1) CHF exacerbation: -Elevated BNP, bilateral lower extremity swelling, likely has a CHF exacerbation -Had about about thousand cc output after 40 mg of Lasix Plan: -Lasix for 40 twice daily -I will hold off on fluid restrictions as patient looks a bit dehydrated -Monitor creatinine as patient's creatinine is 1.8 -PT OT Status: Acute Code(s): I50.9 - Heart failure, unspecified (2) Leg edema: Lasix as above Status: Acute Code(s): R60.0 - Localized edema (3) Fall: Status: Acute Code(s): W19.XXXA - Unspecified fall, initial encounter (4) Acute kidney injury superimposed on CKD: -Patient has baseline CKD, creatinine 1.8 Status: Acute Code(s): N17.9 - Acute kidney failure, unspecified; N18.9 - Chronic kidney disease, unspecified (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, chronic prednisone, theophylline Prednisone 40 mg once daily- Status: Acute Code(s): J43.9 - Emphysema, unspecified (6) Diabetes mellitus: Low-dose sliding scale, plus Tresiba Status: Acute Code(s): E11.9 - Type 2 diabetes mellitus without complications (7) Hyperlipidemia: Status: Acute Code(s): E78.5 - Hyperlipidemia, unspecified (8) CAD (coronary artery disease): No active chest pain, on Plavix status post CAD in 2018 Status: Acute Code(s): I25.10 - Atherosclerotic heart disease of [place] coronary artery without angina pectoris (9) Atrial fibrillation: Continue Eliquis, metoprolol, telemetry monitoring Status: Acute Code(s): I48.91 - Unspecified atrial fibrillation (10) Hyperlipidemia: Status: Acute Code(s): E78.5 - Hyperlipidemia, unspecified (11) NSTEMI (non-ST elevated myocardial infarction): -No active chest pain -Baseline troponin was 1 133, 120-minute 120.2, negative delta -EKG has no acute ST-T wave changes -Patient is CAD status post stenting x3 -Likely type II NSTEMI supply demand ischemia, from CHF Plan: -Echocardiogram -Telemetry monitoring -Serial EKGs, troponins - nitro for chest pain Status: Acute Code(s): I21.4 - Non-ST elevation (NSTEMI) myocardial infarction Attestations Medical Necessity Statement*: Patient requires hospitalization, greater than 2 minutes, CHF exacerbation Coding Level of Care Code Acute Press Brake Operator for [facility] Fwd Diagnoses CHF exacerbation I50.9 Leg edema R60.0 Fall W19.XXXA Acute kidney injury superimposed on CKD N17.9; N18.9 COPD with emphysema J43.9 Diabetes mellitus E11.9 Hyperlipidemia E78.5 CAD (coronary artery disease) I25.10 Atrial fibrillation I48.91 Hyperlipidemia E78.5 NSTEMI (non-ST elevated myocardial infarction) I21.4
[2019-12-13 18:04] LABS: Bilirubin Urine Neg (NEGATIVE); Blood Urine 3+ (Negative); Glucose Urine UA Norm (Normal); Ketones Urine Negative (Negative); Leukocyte Esterase Urine Negative (Negative); Nitrate Urine Negative (Negative); Protein Urine Neg (Negative); Specific Gravity, Urine 1.015 (1.005-1.030); Urine Appearance Cloudy (CLEAR); Urine Color Yellow (Yellow); Urobilinogen Urine Norm (Negative); pH Urine 5 (5-7)
[2019-12-13 18:05] LABS: Add Urine Culture? Yes; Bacteria Urine 1+; Influenza A by IFA Negative (Negative); Influenza B by IFA Negative (Negative); RBC Urine >100 /hpf (0-2); Squamous Epithelial Cell Urine 0-4 (0-5)
[2019-12-13 18:10] LABS: Amphetamines Screen Urine Negative (Negative); Barbiturates Screen Urine Negative (Negative); Benzodiazepines Screen Urine Negative (Negative); Cocaine Screen Urine Negative (Negative); Opiate Screen Urine Negative (Negative); PCP Screen Urine Negative (Negative); THC Screen Urine Negative (Negative)
--- NOTE | 2019-12-13 18:10 | XR_ITS ---
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 No definite fractures of the phalanges, metacarpals, carpal bones. Film and radius appear to be normal. XR/XR hand LT 2V [id number] IMPRESSION: No fractures identified. Osteoarthritic changes.
--- NOTE | 2019-12-13 18:10 | CTR_ITS ---
PROCEDURE INFORMATION: Exam: CT Head Without Contrast Exam date and time: 12/13/2019 6:17 PM Age: 84 years old Clinical indication: Injury or trauma; Initial encounter; Blunt trauma (contusions or hematomas); Without loss of consciousness; Patient HX: Syncope and fall PT is on blood thinners; Additional info: Fall, head tauma, on eliquis and plavix TECHNIQUE: Imaging protocol: Computed tomography of the head without contrast. Total DLP: 920.14 mGy-cm Radiation optimization: All CT scans at this facility use at least one of these dose optimization techniques: automated exposure control; mA and/or kV adjustment per patient size (includes targeted exams where dose is matched to clinical indication); or iterative reconstruction. COMPARISON: No relevant prior studies available. FINDINGS: Brain: Age-appropriate cerebral and cerebellar atrophy with ventricular dilatation. No visible evidence of acute intracranial pathologic process or trauma. No visible intracranial trauma hemorrhage. Small vessel ischemic disease. Ventricles: Unremarkable for age. No ventriculomegaly. Bones/joints: Unremarkable. No acute fracture. Sinuses: Minimal bilateral maxillary mucosal thickening. No air-fluid level. Mastoid air cells: Visualized mastoid air cells are well aerated. Soft tissues: Unremarkable. Vasculature: Cerebral arterial sclerosis. CT/CT head wo con* [id number] IMPRESSION: 1. No visible evidence of active or acute intracranial pathologic process or trauma. 2. Age related findings. Radiation Dose CTDIVOL = (mGy): DLP = 920.14 (mGy-cm)
--- NOTE | 2019-12-13 19:03 | PC.NURSE ---
Report received from ITZEL Beltran and care transferred to ITZEL Betts
--- NOTE | 2019-12-13 19:51 | PC.NURSE ---
REPORT CALLED, BUT NURSE INFORMED ROOM NOT CLEAN FOR PATIENT YET
--- NOTE | 2019-12-13 20:04 | ECG_ITS ---
Measurements Intervals [place] Rate: 73 P: PA: 0 QRS: -59 QRSD: 122 T: 81 QT: 378 QTc: 417 ATRIAL FLUTTER LEFT ANTERIOR FASCICULAR BLOCK [QRS AXIS <= -45, QR IN I, RS IN II] INTRAVENTRICULAR CONDUCTION DELAY Compared to ECG 12/13/2019 15:25:58 Left anterior fascicular block now present Aberrant conduction of supraventricular beat(s) no longer present Ventricular premature complex(es) no longer present Left-axis deviation no longer present Electronically Signed On 12-14-2019 8:22:10 EP TECHNOLOGIST by Sona Antonio M.D. [email or web address]
--- NOTE | 2019-12-13 20:16 | PC.NURSE ---
CALLED TO CHECK ON ROOM STATUS, ROOM STILL NOT CLEAN
--- NOTE | 2019-12-13 20:25 | PC.NURSE ---
Addendum entered by Roxane Dunbar RN 12/13/19 20:39: HCP NOTIFIED BY NURSE Original Note: BLOOD GLUCOSE TAKEN AT BEDSIDE BY TECH, BG 59
--- NOTE | 2019-12-13 20:30 | PC.NURSE ---
Blood glucose is 59, nurse was notified.
[2019-12-13 20:31] LABS: Glucose Point of Care 59 mg/dL (70-110)
--- NOTE | 2019-12-13 20:38 | PC.NURSE ---
LEFT HAND INJURY REWRAPPED, CLEAN AND DRY WITH GAUZE AND TELFA.
[2019-12-13 20:45] LABS: Troponin 5 6HR Delta -14.3 ng/L (0-12)
[2019-12-13 20:46] LABS: Troponin 5 6HR 118.7 ng/mL (0-15)
--- NOTE | 2019-12-13 20:46 | PC.NURSE ---
BG RECHECK AFTER PATIENT GIVEN JUICE, APPLE SAUCE IS VALUE BG 57. HCP NOTIFIED.
[2019-12-13 20:47] LABS: Glucose Point of Care 57 mg/dL (70-110)
--- NOTE | 2019-12-13 20:59 | PC.NURSE ---
Blood glucose is 86, both nurse and ER doctor have been notified.
[2019-12-13 21:01] LABS: Glucose Point of Care 86 mg/dL (70-110)
[2019-12-13] MEDS: cloNIDine 0.1 mg Tablet 0.2 MG PO (23:06)
[2019-12-13] MEDS: docusate sodium 100 mg Capsule PO (23:06)
[2019-12-13] MEDS: apixaban 5 mg Tablet PO (23:06)
[2019-12-13] MEDS: terazosin 5 mg Capsule PO (23:06)
[2019-12-14] VITALS (18 sets, daily range): BP systolic 125–154; BP diastolic 54–84; PULSE 52–79; RESP 16–24; TEMP 36.7–37.4; O2SAT 93–98
[2019-12-14] MEDS: ipratropium-albuterol 3 mL Neb INHALATION ×5 (01:31→20:43)
[2019-12-14 04:47] LABS: Glucose Point of Care 126 mg/dL (70-110)
[2019-12-14 06:51] LABS: Basophils % 0.1 %; Hematocrit 28.7 % (42.0-52.0); Hemoglobin 9.1 g/dL (11.7-16.6); Lymphocytes # 0.2 10^3/uL (0.8-4.8); Lymphocytes % 1.6 %; Mean Corpuscular HGB Conc 31.7 g/dL (30.0-36.0); Mean Corpuscular Hemoglobin 27.6 pg (28.0-34.0); Mean Platelet Volume 10.2 fL (7.4-10.4); Monocytes # 0.1 10^3/uL (0.2-0.9); Monocytes % 0.7 %; Nucleated Red Blood Cells % 0 %; Platelet Count 197 10^3/cmm (130-400); Red Cell Distribution Width 15.9 % (12.1-15.1); White Blood Count 12.3 10^3/uL (4.0-10.0)
[2019-12-14 07:07] LABS: Alanine Aminotransferase 21 U/L (0-41); Albumin Level 2.8 g/dL (3.5-5.2); Alkaline Phosphatase 100 IU/L (40-130); Anion Gap 11.7 (5-19); Aspartate Amino Transferase 22 U/L (0-40); Blood Urea Nitrogen 58 mg/dL (8-23); Calcium 8.5 mg/dL (8.5-10.5); Carbon Dioxide 29 mmol/L (22-29); Chloride 100 mmol/L (98-107); Globulin 2.4 g/dL (1.3-4.6); Glucose 168 mg/dL (65-115); Magnesium 2.6 mg/dL (1.7-2.3); Phosphorus 2.9 mg/dL (2.5-4.5); Potassium 4.7 mmol/L (3.5-5.1); Sodium 136 mmol/L (136-145); Total Bilirubin 0.4 mg/dL (0.15-1.2); Total Protein 5.2 g/dL (6.6-8.7)
[2019-12-14 08:51] LABS: Glucose Point of Care 281 mg/dL (70-110)
[2019-12-14] MEDS: docusate sodium 100 mg Capsule PO ×2 (08:56→17:26)
[2019-12-14] MEDS: cloNIDine 0.1 mg Tablet 0.2 MG PO ×3 (08:56→20:40)
[2019-12-14] MEDS: clopidogrel 75 mg Tablet PO (08:56)
[2019-12-14] MEDS: apixaban 5 mg Tablet PO ×2 (08:56→17:26)
[2019-12-14] MEDS: amiodarone 200 mg Tablet PO (08:56)
[2019-12-14] MEDS: terazosin 5 mg Capsule PO ×2 (09:01→17:26)
[2019-12-14] MEDS: metoprolol succinate ER (24 HR) 25 mg Tablet PO (09:01)
[2019-12-14] MEDS: pantoprazole DR 40 mg Tablet PO (09:01)
[2019-12-14] MEDS: predniSONE 20 mg Tablet 40 MG PO (09:01)
[2019-12-14] MEDS: losartan 50 mg Tablet 25 MG PO (09:02)
[2019-12-14] MEDS: FUROsemide 10 mg/mL SDV 4mL 40 MG IVP ×2 (10:06→17:40)
[2019-12-14 11:29] LABS: Glucose Point of Care 359 mg/dL (70-110)
--- NOTE | 2019-12-14 13:10 | PC.CHAP ---
Pastoral Care Encounter/Spiritual Assessment Type of Contact [] Declined medical administrative specialist visit [] Patient/Family/Request visit [] Outpatient visit [] Follow-up visit [] Physician referral [] Code/Alert [X] Routine visit [] Staff referral [] Actively dying [] Patient sleeping [] Family support [] [] Out of room [] Palliative care [] [] Receiving care in room [] Pre-surgical visit [] Trauma [] Long length of stay [] ICU visit [] Other: Relational/Emotional Strength [] Patient feels connected with others/family/visitors/staff [] Distress [] Loneliness/isolation [] Abandonment Spirituality of Patient [] Person of Bridget [] Attends Christianity of their Bridget [] Believes in Prayer [] Reads Bible or Rastafari materials [] There are Spiritual issues to be addressed Sweep Press Operator Interventions [] Prayer [] Active listening [] Non-anxious presence [] Spiritual/emotional support [] Crisis/trauma care [] Spiritual counseling [] Bereavement support [] Provided bereavement packet [] Provided Bible/devotional materials [] Provided toy/stuffed animal, coloring book to patient or family member [] Provided Communion [] Anointing/Olin [] Salvation [] Completed spiritual assessment [] Other: Impact on Illness or Injury [] Angry [] Fearful [] Anxious [] Often cries [] Exhaustion [] Unable to work [] Unable to attend hindu [] Unable to walk/stand [] Unable to read [] Unable to drive [] Unable to eat/drink [] Unable to sleep [] Unable to be with family [] Patient intubated [] Other: Summary Time spent with patient
[2019-12-14 16:27] LABS: Glucose Point of Care 498 mg/dL (70-110)
--- NOTE | 2019-12-14 16:50 | P.PN_ITS ---
Vitals/I&O/Wt Last Vital Signs Temp 99.3 F 12/14/19 15:13 Pulse 56 L 12/14/19 15:21 Resp 17 12/14/19 15:13 BP 135/64 12/14/19 15:13 Pulse Ox 98 12/14/19 15:13 12/14/19 12/14/19 12/14/19 06:59 14:59 22:59 Intake Total 480 / 480 360 / 360 Output Total 290 / 1990 1200 / 1200 350 / 1550 Balance 190 / -1510 -840 / -840 -350 / -1190 Weight last 48 hrs Weight 74.843 kg Physical Exam Const: COMMON NORMALS: no apparent distress and oriented x3 GENERAL APPEARANCE: cooperative and comfortable HENMT: COMMON NORMALS: normocephalic HEAD & SCALP: normocephalic Eye: COMMON NORMALS: PERRL GENERAL EYE: normal appearance of both eyes PUPIL: Yes PERRL Neck/C-Spine: COMMON NORMALS: no JVD Resp: COMMON NORMALS: normal respiratory effort, no retractions, no use of accessory muscles and clear to auscultation bilaterally AUSCULTATION: clear to auscultation bilaterally Cardio: COMMON NORMALS: no JVD, regular rate, regular rhythm, S1 normal heart sound, S2 normal heart sound, no gallops, no clicks and no murmurs RATE: regular rate RHYTHM: regular rhythm HEART SOUNDS: S1 normal and S2 normal GI: COMMON NORMALS: normal to inspection, nondistended, normoactive bowel soun ds, soft to palpation, non-tender and no hepatosplenomegaly PALPATION: Yes soft and Yes no hepatosplenomegaly Extremity: COMMON NORMALS: normal to inspection and full ROM NARRATIVE EXTREMITY EXAM: 1+ pitting edema, no weeping Neuro: COMMON NORMALS: oriented x3, CN's II-XII intact bilaterally, moves all extremities and no focal motor deficits Psych: COMMON NORMALS: mental status grossly normal, thought process normal and cooperative THOUGHT PROCESS: normal thought process Data : 12/14/19 05:35 12/14/19 05:35 A&P Assessment and plan (1) CHF exacerbation: -Elevated BNP, bilateral lower extremity swelling, likely has a CHF exacerbation -Had about about thousand cc output after 40 mg of Lasix Plan: -Lasix for 40 twice daily -I will hold off on fluid restrictions as patient looks a bit dehydrated -Monitor creatinine as patient's creatinine is 1.6 -PT OT Status: Acute Code(s): I50.9 - Heart failure, unspecified (2) Leg edema: Lasix as above Status: Acute Code(s): R60.0 - Localized edema (3) Fall: Status: Acute Code(s): W19.XXXA - Unspecified fall, initial encounter (4) Acute kidney injury superimposed on CKD: -Patient has baseline CKD, creatinine 1.6 Status: Acute Code(s): N17.9 - Acute kidney failure, unspecified; N18.9 - Chronic kidney disease, unspe cified (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, chronic prednisone, theophylline We will stop prednisone as patient is hyperglycemic, continue prednisone 5 mg every other day on discharge Status: Acute Code(s): J43.9 - Emphysema, unspecified (6) Diabetes mellitus: Change to high-dose sliding scale, with Tresiba Status: Acute Code(s): E11.9 - Type 2 diabetes mellitus without complications (7) Hyperlipidemia: Status: Acute Code(s): E78.5 - Hyperlipidemia, unspecified (8) CAD (coronary artery disease): No active chest pain, on Plavix status post CAD in 2018 Status: Acute Code(s): I25.10 - Atherosclerotic heart disease of [place] coronary artery without angina pectoris (9) Atrial fibrillation: Continue Eliquis, metoprolol, telemetry monitoring Status: Acute Code(s): I48.91 - Unspecified atrial fibrillation (10) NSTEMI (non-ST elevated myocardial infarction): -No active chest pain -Baseline troponin was 1 133, 120-minute 120.2, negative delta -EKG has no acute ST-T wave changes -Patient is CAD status post stenting x3 -Likely type II NSTEMI supply demand ischemia, from CHF Plan: -Echocardiogram pending -Telemetry monitoring -Serial EKGs, troponins - nitro for chest pain Status: Acute Code(s): I21.4 - Non-ST elevation (NSTEMI) myocardial infarction Attestations Medical Necessity Statement*: Patient requires hospitalization due to CHF exacerbation Coding Level of Care Code Acute 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
[2019-12-14 16:55] LABS: Glucose Point of Care 402 mg/dL (70-110)
[2019-12-14] MEDS: sulfamethoxazole-trimeth DS 160-800 mg Tablet 1 TAB PO (17:25)
[2019-12-14] MEDS: latanoprost 0.005% Op Soln 2.5 mL Btl 1 DROP EYE-BOTH (20:33)
--- NOTE | 2019-12-14 21:10 | USCV_ITS ---
Ion Messina Age: 84 Gender: M : 1935 Exam Date: 12/14/2019 12:37 Ordering Phys: Chapito Whitlock MD Technologist: Mary Kate Marti Exam Location: [facility] [place] Indication: Shortness of breath BP: 154 / 57 HR: 64 Rhythm: Atrial flutter Technical Quality: Poor MEASUREMENTS (Male / Female) Normal Values 2D ECHO LV Diastolic Diameter PLAX 4.3 cm 4.2 - 5.9 / 3.9 - 5.3 cm LV Systolic Diameter PLAX 1.5 cm LV Chamber Size 4.2 cm IVS Diastolic Thickness 1.4 cm 0.6 - 1.0 / 0.6 - 0.9 cm IVS Systolic Thickness 2.3 cm LVPW Diastolic Thickness 1.0 cm 0.6 - 1.0 / 0.6 - 0.9 cm LVPW Systolic Thickness 1.7 cm RV Chamber Size 3.3 cm LVOT Diameter 2.1 cm LV Ejection Fraction 2D Teich 93.1 % LA Diameter 3.3 cm LA Width 3.1 cm LA Height 6.5 cm RA Width 2.8 cm RA Height 6.2 cm Aorta at Sinotubular Diameter 3.8 cm M-MODE LV Diastolic Diameter MM 4.4 cm 4.2 - 5.9 / 3.9 - 5.3 cm LV Systolic Diameter MM 3.1 cm LV Ejection Fraction MM Teich 56.0 % IVS Diastolic Thickness MM 1.8 cm 0.6 - 1.0 / 0.6 - 0.9 cm IVS Systolic Thickness MM 1.7 cm LVPW Diastolic Thickness MM 1.7 cm 0.6 - 1.0 / 0.6 - 0.9 cm LVPW Systolic Thickness MM 1.8 cm RV Diastolic Diameter MM 2.7 cm Aortic Annulus Diameter 3.1 cm LA Ao Ratio MM 1.1 DOPPLER AV Peak Velocity 330.0 cm/s LVOT Peak Velocity 114.0 cm/s AV Area Cont Eq vti 1.2 cm squared AV Area Cont Eq pk 1.2 cm squared MV Area PHT 5.0 cm squared Mitral E to A Ratio 1.2 MV E' Velocity 12.0 cm/s Mitral E to MV E' Ratio 13.5 Mitral E to LV E' Lateral Ratio 12.0 Mitral E to LV E' Septal Ratio 15.3 TV Peak E Velocity 88.0 cm/s Right Atrial Pressure 8.0 mmHg FINDINGS Left Ventricle Normal left ventricular cavity size. Normal left ventricular systolic function. Left ventricular ejection fraction is estimated at 56 %. Grade II/IV diastolic dysfunction, moderately elevated filling pressures. Right Ventricle Normal right ventricular size. RVSP could not be calculated due to incomplete tricuspid regurgitation velocity profile. Right Atrium Moderately increased right atrial size. Left Atrium The left atrium is normal in size. Mitral Valve Severely thickened mitral valve. Severe mitral annular calcification. No mitral valve stenosis. Trace mitral valve regurgitation. Aortic Valve Bioprosthetic aortic valve is sitting in normal position wihtout any valvular or perivalcular leak mean gradient 22.9 mmHg, JARON 1.2 cm squared. No aortic valve regurgitation. Tricuspid Valve Mild tricuspid valve regurgitation. Pulmonic Valve Pulmonic valve not well visualized. Pericardium Normal pericardium without effusion. Aorta Normal ascending aorta dimension. CONCLUSIONS 1-Normal left ventricular cavity size. Normal left ventricular systolic function. Left ventricular ejection fraction is estimated at 56 %. Grade II/IV diastolic dysfunction, moderately elevated filling pressures. 2-Moderately increased right atrial size. 3-Normal right ventricular size. RVSP could not be calculated due to incomplete tricuspid regurgitation velocity profile. 4-Bioprosthetic aortic valve is sitting in normal position wihtout any valvular or perivalcular leak, peak gradient is 43mmHg, mean gradient 22.9 mmHg, JARON 1.2 cm squared. No aortic valve regurgitation. 5-Severely thickened mitral valve. Severe mitral annular calcification. No mitral valve stenosis. Trace mitral valve regurgitation. 6-There is no pericardial effusion. 7-Right atrial pressure is around 2 mm of mercury. 8- When compared to the prior echocardiogram dated 08/13/2017, peak and mean gradient across the aortic valve has slightly worsened from 34-44 and 17-22 mmHg respectively. Bobby Singletary MD (Electronically Signed) Final Date: 14 December 2019 17:06 S
[2019-12-14 21:15] LABS: Glucose Point of Care 452 mg/dL (70-110)
[2019-12-14] MEDS: insulin glargine 100 units/1 mL 20 UNIT SUBCUT (22:00)
[2019-12-15] VITALS (21 sets, daily range): BP systolic 103–153; BP diastolic 50–80; PULSE 49–65; RESP 16–24; TEMP 36.4–36.9; O2SAT 86–100
[2019-12-15 00:04] LABS: Glucose Point of Care 391 mg/dL (70-110)
[2019-12-15 05:37] LABS: Glucose Point of Care 177 mg/dL (70-110)
[2019-12-15 05:55] LABS: Eosinophils % 0.1 %; Hematocrit 26.7 % (42.0-52.0); Hemoglobin 8.6 g/dL (11.7-16.6); Lymphocytes # 0.4 10^3/uL (0.8-4.8); Lymphocytes % 2.6 %; Mean Corpuscular HGB Conc 32.2 g/dL (30.0-36.0); Mean Platelet Volume 9.7 fL (7.4-10.4); Monocytes # 0.7 10^3/uL (0.2-0.9); Neutrophils # 12.2 10^3/uL (1.8-7.7); Neutrophils % 91.8 %; Nucleated Red Blood Cells % 0 %; Platelet Count 186 10^3/cmm (130-400); Red Blood Count 3.07 10^6/uL (4.1-5.3); White Blood Count 13.3 10^3/uL (4.0-10.0)
[2019-12-15 06:14] LABS: Alanine Aminotransferase 20 U/L (0-41); Albumin Level 2.7 g/dL (3.5-5.2); Alkaline Phosphatase 98 IU/L (40-130); Anion Gap 12.1 (5-19); Aspartate Amino Transferase 16 U/L (0-40); Blood Urea Nitrogen 62 mg/dL (8-23); Calcium 8.7 mg/dL (8.5-10.5); Carbon Dioxide 29 mmol/L (22-29); Chloride 99 mmol/L (98-107); Globulin 2.3 g/dL (1.3-4.6); Glucose 167 mg/dL (65-115); Magnesium 2.7 mg/dL (1.7-2.3); Phosphorus 2.6 mg/dL (2.5-4.5); Potassium 5.1 mmol/L (3.5-5.1); Sodium 135 mmol/L (136-145); Total Bilirubin 0.2 mg/dL (0.15-1.2)
[2019-12-15 06:36] LABS: Glucose Point of Care 148 mg/dL (70-110)
[2019-12-15] MEDS: ipratropium-albuterol 3 mL Neb INHALATION ×4 (08:07→23:26)
[2019-12-15] MEDS: losartan 50 mg Tablet 25 MG PO (08:49)
[2019-12-15] MEDS: terazosin 5 mg Capsule PO ×2 (08:50→17:22)
[2019-12-15] MEDS: docusate sodium 100 mg Capsule PO ×2 (08:50→17:22)
[2019-12-15] MEDS: sulfamethoxazole-trimeth DS 160-800 mg Tablet 1 TAB PO ×2 (08:51→17:23)
[2019-12-15] MEDS: clopidogrel 75 mg Tablet PO (08:51)
[2019-12-15] MEDS: apixaban 5 mg Tablet PO ×2 (08:52→17:22)
[2019-12-15] MEDS: atorvastatin 40 mg Tablet 10 MG PO (08:52)
[2019-12-15] MEDS: amiodarone 200 mg Tablet PO (08:52)
[2019-12-15] MEDS: metoprolol succinate ER (24 HR) 25 mg Tablet PO (08:52)
[2019-12-15] MEDS: cloNIDine 0.1 mg Tablet 0.2 MG PO ×3 (08:52→20:17)
[2019-12-15] MEDS: FUROsemide 10 mg/mL SDV 4mL 40 MG IVP ×2 (08:53→17:22)
[2019-12-15] MEDS: pantoprazole DR 40 mg Tablet PO (08:53)
--- NOTE | 2019-12-15 10:35 | PC.NURSE ---
The patient refused a bath at this time. his family was present. i changed his linens
[2019-12-15 11:48] LABS: Glucose Point of Care 51 mg/dL (70-110)
[2019-12-15 13:34] LABS: Glucose Point of Care 59 mg/dL (70-110)
--- NOTE | 2019-12-15 16:06 | PC.NURSE ---
Patients blood sugar at lunch was 54, Dr. Villagran in the room visiting with patient at that time. Patient's lunch tray given to him early, he ate 75% and was given orange juice. 45 minutes later patients blood sugar was 59. He was then given orange juice and peanut butter with crackers. Recheck of blood sugar was 123 before supper.
--- NOTE | 2019-12-15 16:24 | P.PN_ITS ---
Subjective Subjective: Interval history: Ion reports he is doing okay but still short of breath. Lower extremities are perhaps about the same as yesterday but definitely better than on admission. Medications: Reviewed: Yes Vitals/I&O/Wt Last Vital Signs Temp 97.7 F 12/15/19 15:38 Pulse 55 L 12/15/19 15:38 Resp 16 12/15/19 15:38 BP 129/55 12/15/19 15:38 Pulse Ox 98 12/15/19 15:38 12/15/19 12/15/19 12/15/19 06:59 14:59 22:59 Intake Total 840 / 840 Output Total 500 / 500 Balance 340 / 340 Weight last 48 hrs Weight 84.623 kg Physical Exam Narrative: EXAM NARRATIVE: General exam mild respiratory distress Cardiovascular regular rate and rhythm, heart sounds distant Lungs clear but diminished breath sounds bilaterally Abdomen is soft with positive bowel sounds Extremities trace bilateral edema Data : 12/15/19 05:23 12/15/19 05:23 Micro: Microbiology 12/13/19 17:32 Urine Culture - Preliminary Urine,Clean Catch A&P Assessment and plan (1) CHF exacerbation: Continue diuresis with Lasix 40 mg IV twice daily Echocardiogram demonstrates preserved EF, bioprosthetic aortic valve. Status: Acute Code(s): I50.9 - Heart failure, unspecified (2) Leg edema: Improved with Lasix Status: Acute Code(s): R60.0 - Localized edema (3) Fall: Status: Acute Code(s): W19.XXXA - Unspecified fall, initial encounter (4) Acute kidney injury superimposed on CKD: Creatinine remains stable Status: Acute Code(s): N17.9 - Acute kidney failure, unspecified; N18.9 - Chronic kidney disease, unspecified (5) COPD with emphysema: Continue prednisone, pulmonary toilet, theophylline Status: Acute Code(s): J43.9 - Emphysema, unspecified (6) Diabetes mellitus: Sliding scale insulin, Lantus Status: Acute Code(s): E11.9 - Type 2 diabetes mellitus without complications (7) Hyperlipidemia: Continue statin Status: Acute Code(s): E78.5 - Hyperlipidemia, unspecified (8) CAD (coronary artery disease): No active chest pain, on Plavix status post CAD in 2018 Status: Acute Code(s): I25.10 - Atherosclerotic heart disease of [place] coronary artery without angina pectoris (9) Atrial fibrillation: Continue Eliquis, metoprolol, amiodarone Status: Acute Code(s): I48.91 - Unspecified atrial fibrillation (10) NSTEMI (non-ST elevated myocardial infarction): Appears to be type II. No active chest pain. Status: Acute Code(s): I21.4 - Non-ST elevation (NSTEMI) myocardial infarction Attestations Medical Necessity Statement*: Needs continued hospitalization for further diuresis. 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
[2019-12-15 16:27] LABS: Glucose Point of Care 123 mg/dL (70-110)
[2019-12-15] MEDS: latanoprost 0.005% Op Soln 2.5 mL Btl 1 DROP EYE-BOTH (20:18)
[2019-12-15 20:51] LABS: Glucose Point of Care 96 mg/dL (70-110)
[2019-12-15] MEDS: insulin glargine 100 units/1 mL 10 UNIT SUBCUT (21:36)
[2019-12-15] MEDS: lanolin oint 7 gm 1 APPLIC TOPICAL (23:59)
[2019-12-16] VITALS (19 sets, daily range): BP systolic 119–152; BP diastolic 48–63; PULSE 50–69; RESP 16–20; TEMP 36.4–36.9; O2SAT 92–99
[2019-12-16] MEDS: ipratropium-albuterol 3 mL Neb INHALATION ×6 (03:20→23:53)
[2019-12-16 06:18] LABS: Basophils % 0.1 %; Eosinophils # 0.2 10^3/uL (0.0-0.8); Eosinophils % 1.8 %; Hematocrit 28.5 % (42.0-52.0); Lymphocytes # 0.5 10^3/uL (0.8-4.8); Lymphocytes % 4.8 %; Mean Corpuscular HGB Conc 31.6 g/dL (30.0-36.0); Mean Corpuscular Hemoglobin 27.7 pg (28.0-34.0); Mean Corpuscular Volume 87.7 fL (80-94); Mean Platelet Volume 10.1 fL (7.4-10.4); Monocytes # 0.7 10^3/uL (0.2-0.9); Monocytes % 6.3 %; Neutrophils # 9.4 10^3/uL (1.8-7.7); Neutrophils % 86.4 %; Nucleated Red Blood Cells % 0 %; Platelet Count 200 10^3/cmm (130-400); Red Blood Count 3.25 10^6/uL (4.1-5.3); Red Cell Distribution Width 16.1 % (12.1-15.1); White Blood Count 10.9 10^3/uL (4.0-10.0)
[2019-12-16 06:19] LABS: Glucose Point of Care 113 mg/dL (70-110)
[2019-12-16 06:38] LABS: Alanine Aminotransferase 20 U/L (0-41); Albumin Level 2.6 g/dL (3.5-5.2); Alkaline Phosphatase 111 IU/L (40-130); Aspartate Amino Transferase 20 U/L (0-40); Blood Urea Nitrogen 50 mg/dL (8-23); Calcium 8.7 mg/dL (8.5-10.5); Carbon Dioxide 31 mmol/L (22-29); Chloride 100 mmol/L (98-107); Globulin 2.8 g/dL (1.3-4.6); Glucose 111 mg/dL (65-115); Magnesium 2.4 mg/dL (1.7-2.3); Osmolality Calculated 283 mOsm/kg (285-295); Phosphorus 3.1 mg/dL (2.5-4.5); Sodium 137 mmol/L (136-145); Total Bilirubin 0.2 mg/dL (0.15-1.2); Total Protein 5.4 g/dL (6.6-8.7)
[2019-12-16] MEDS: cloNIDine 0.1 mg Tablet 0.2 MG PO ×3 (08:41→20:51)
[2019-12-16] MEDS: terazosin 5 mg Capsule PO ×2 (08:41→18:05)
[2019-12-16] MEDS: atorvastatin 40 mg Tablet 10 MG PO (08:41)
[2019-12-16] MEDS: pantoprazole DR 40 mg Tablet PO (08:41)
[2019-12-16] MEDS: losartan 50 mg Tablet 25 MG PO (08:41)
[2019-12-16] MEDS: amiodarone 200 mg Tablet PO (08:41)
[2019-12-16] MEDS: metoprolol succinate ER (24 HR) 25 mg Tablet PO (08:42)
[2019-12-16] MEDS: predniSONE 5 mg Tablet PO (08:42)
[2019-12-16] MEDS: apixaban 5 mg Tablet PO ×2 (08:42→18:06)
[2019-12-16] MEDS: sulfamethoxazole-trimeth DS 160-800 mg Tablet 1 TAB PO ×2 (08:42→18:06)
[2019-12-16] MEDS: clopidogrel 75 mg Tablet PO (08:42)
[2019-12-16] MEDS: docusate sodium 100 mg Capsule PO ×2 (08:42→18:06)
[2019-12-16] MEDS: acetaminophen 325 mg Tablet PO (08:43)
[2019-12-16] MEDS: FUROsemide 10 mg/mL SDV 4mL 40 MG IVP (08:43)
--- NOTE | 2019-12-16 09:50 | PC.SOCIAL ---
IMM Page 2 of IMM explained to and signed by patient's spouse at bedside. Patient has a managed plan and the phone number was provided. Initialed, dated, and timed and placed in chart. Copy provided to patient.
[2019-12-16 11:23] LABS: Glucose Point of Care 214 mg/dL (70-110)
--- NOTE | 2019-12-16 14:43 | PM.PN ---
Subjective Subjective: Interval history: Ion reports he is doing okay today. Overall he is very weak. He is agreeable to go to skilled care. Medications: Reviewed: Yes Vitals/I&O/Wt Last Vital Signs Temp 98.4 F 12/16/19 11:19 Pulse 57 L 12/16/19 11:28 Resp 18 12/16/19 11:22 BP 152/48 12/16/19 14:18 Pulse Ox 96 12/16/19 11:22 12/15/19 12/16/19 12/16/19 22:59 06:59 14:59 Intake Total 630 / 1470 700 / 700 Output Total 1700 / 2200 1000 / 3200 Balance -1070 / -730 -1000 / -1730 700 / 700 Weight last 48 hrs Weight 85.638 kg Weight 84.623 kg Physical Exam Narrative: EXAM NARRATIVE: General exam mild respiratory distress Cardiovascular regular rate and rhythm, heart sounds distant Lungs clear but diminished breath sounds bilaterally Abdomen is soft with positive bowel sounds Extremities trace bilateral edema Data : 12/16/19 05:47 12/16/19 05:47 Micro: Microbiology 12/13/19 17:32 Urine Culture - Final Urine,Clean Catch A&P Assessment and plan (1) CHF exacerbation: Change diuresis to p.o. 40 mg twice daily. Discontinue potassium. You should not need this with his renal dysfunction. Echocardiogram demonstrates preserved EF, bioprosthetic aortic valve. Status: Acute Code(s): I50.9 - Heart failure, unspecified (2) Leg edema: Improved with Lasix Status: Acute Code(s): R60.0 - Localized edema (3) Fall: Status: Acute Code(s): W19.XXXA - Unspecified fall, initial encounter (4) Acute kidney injury superimposed on CKD: Creatinine remains stable Status: Acute Code(s): N17.9 - Acute kidney failure, unspecified; N18.9 - Chronic kidney disease, unspecified (5) COPD with emphysema: Continue prednisone, pulmonary toilet, theophylline Status: Acute Code(s): J43.9 - Emphysema, unspecified (6) Diabetes mellitus: Sliding scale insulin, Lantus Status: Acute Code(s): E11.9 - Type 2 diabetes mellitus without complications (7) Hyperlipidemia: Continue statin Status: Acute Code(s): E78.5 - Hyperlipidemia, unspecified (8) CAD (coronary artery disease): No active chest pain, on Plavix status post CAD in 2018 Status: Acute Code(s): I25.10 - Atherosclerotic heart disease of [place] coronary artery without angina pectoris (9) Atrial fibrillation: Continue Eliquis, metoprolol, amiodarone Status: Acute Code(s): I48.91 - Unspecified atrial fibrillation (10) NSTEMI (non-ST elevated myocardial infarction): Appears to be type II. No active chest pain. Status: Acute Code(s): I21.4 - Non-ST elevation (NSTEMI) myocardial infarction Attestations Medical Necessity Statement*: Needs continued hospitalization for close monitoring of diuresis with telephone exchange operator to oral Lasix. Hopefully [facility] facility can be arranged which patient decided upon today. 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
[2019-12-16 17:04] LABS: Glucose Point of Care 336 mg/dL (70-110)
[2019-12-16] MEDS: FUROsemide 40 mg Tablet PO (17:04)
[2019-12-16 18:02] LABS: Glucose Point of Care 399 mg/dL (70-110)
[2019-12-16] MEDS: latanoprost 0.005% Op Soln 2.5 mL Btl 1 DROP EYE-BOTH (20:55)
[2019-12-16] MEDS: insulin glargine 100 units/1 mL 10 UNIT SUBCUT (20:56)
[2019-12-16 23:07] LABS: Glucose Point of Care 392 mg/dL (70-110)
[2019-12-17] VITALS (18 sets, daily range): BP systolic 112–165; BP diastolic 51–67; PULSE 49–65; RESP 16–22; TEMP 36.7–37.2; O2SAT 95–99
[2019-12-17 01:08] LABS: Glucose Point of Care 93 mg/dL (70-110)
[2019-12-17] MEDS: ipratropium-albuterol 3 mL Neb INHALATION ×6 (03:33→23:54)
[2019-12-17 03:39] LABS: Glucose Point of Care 40 mg/dL (70-110)
[2019-12-17 07:00] LABS: Glucose Point of Care 45 mg/dL (70-110)
[2019-12-17] MEDS: FUROsemide 40 mg Tablet PO ×2 (08:41→17:00)
[2019-12-17] MEDS: docusate sodium 100 mg Capsule PO ×2 (08:41→17:00)
[2019-12-17] MEDS: pantoprazole DR 40 mg Tablet PO (08:44)
[2019-12-17] MEDS: amiodarone 200 mg Tablet PO (08:44)
[2019-12-17] MEDS: metoprolol succinate ER (24 HR) 25 mg Tablet PO (08:44)
[2019-12-17] MEDS: apixaban 5 mg Tablet PO ×2 (08:44→17:00)
[2019-12-17] MEDS: clopidogrel 75 mg Tablet PO (08:44)
[2019-12-17] MEDS: sulfamethoxazole-trimeth DS 160-800 mg Tablet 1 TAB PO (08:44)
[2019-12-17] MEDS: atorvastatin 40 mg Tablet 10 MG PO (08:44)
[2019-12-17 08:46] LABS: Glucose Point of Care 113 mg/dL (70-110)
--- NOTE | 2019-12-17 09:42 | XR_ITS ---
WS: [id number] Left hip, AP and frog-leg views, 12/17/2019 Clinical Data: hip pain Comparison: None. Findings: No fractures or dislocations are seen. The hip joint is intact. The soft tissues are not remarkable. The adjacent pelvis is normal. XR/XR hip LT 2-3V wo/w pel* [id number] Impression: Negative left hip.
[2019-12-17 11:24] LABS: Glucose Point of Care 160 mg/dL (70-110)
--- NOTE | 2019-12-17 13:01 | P.PN_ITS ---
Subjective Subjective: Interval history: Ion reports his left groin hurts some when he moves his leg, and it radiates down his entire leg. He reports his sugar has been low this morning, which he does not like at all. He reports his breathing is about the same. Medications: Reviewed: Yes Vitals/I&O/Wt Last Vital Signs Temp 98.3 F 12/17/19 11:21 Pulse 52 L 12/17/19 13:00 Resp 22 H 12/17/19 12:54 BP 128/51 12/17/19 11:21 Pulse Ox 96 12/17/19 12:54 12/16/19 12/17/19 12/17/19 22:59 06:59 14:59 Intake Total 360 / 1060 360 / 1420 240 / 240 Output Total 2150 / 2150 650 / 2800 Balance -1790 / -1090 -290 / -1380 240 / 240 Weight last 48 hrs Weight 83.552 kg Weight 85.638 kg Weight 84.623 kg Physical Exam Narrative: EXAM NARRATIVE: General exam mild respiratory distress Cardiovascular regular rate and rhythm, heart sounds distant Lungs clear but diminished breath sounds bilaterally Abdomen is soft with positive bowel sounds Extremities trace bilateral edema Data : 12/16/19 05:47 12/16/19 05:47 Micro: Microbiology 12/13/19 17:32 Urine Culture - Final Urine,Clean Catch A&P Assessment and plan (1) CHF exacerbation: Continue Lasix 40 mg p.o. twice daily. Echocardiogram demonstrates preserved EF, bioprosthetic aortic valve. Status: Acute Code(s): I50.9 - Heart failure, unspecified (2) Leg edema: Improved with Lasix Status: Acute Code(s): R60.0 - Localized edema (3) Fall: He is now complaining of some left hip pain. Will check x-ray. This demonstrates no fracture. Status: Acute Code(s): W19.XXXA - Unspecified fall, initial encounter (4) Acute kidney injury superimposed on CKD: Repeat creatinine tomorrow Status: Acute Code(s): N17.9 - Acute kidney failure, unspecified; N18.9 - Chronic kidney disease, unspecified (5) COPD with emphysema: Continue prednisone, pulmonary toilet, theophylline Status: Acute Code(s): J43.9 - Emphysema, unspecified (6) Diabetes mellitus: Sliding scale insulin, Lantus. He was hypoglycemic again overnight despite cutting his Lantus in half. Will discontinue Lantus, take away sliding scale dose at night prior to bed. He is already on a mild sliding scale. Status: Acute Code(s): E11.9 - Type 2 diabetes mellitus without complications (7) Hyperlipidemia: Continue statin Status: Acute Code(s): E78.5 - Hyperlipidemia, unspecified (8) CAD (coronary artery disease): No active chest pain, on Plavix status post CAD in 2018 Status: Acute Code(s): I25.10 - Atherosclerotic heart disease of [place] coronary artery without angina pectoris (9) Atrial fibrillation: Continue Eliquis, metoprolol, amiodarone Status: Acute Code(s): I48.91 - Unspecified atrial fibrillation (10) NSTEMI (non-ST elevated myocardial infarction): Appears to be type II. No active chest pain. Status: Acute Code(s): I21.4 - Non-ST elevation (NSTEMI) myocardial infarction Attestations Medical Necessity Statement*: Needs continued hospital stay for supportive care secondary to COPD exacerbation pending placement. 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
[2019-12-17] MEDS: lactulose oral liq 20 gm/30 mL UDC PO ×2 (14:25→17:00)
[2019-12-17] MEDS: cloNIDine 0.1 mg Tablet 0.2 MG PO ×2 (14:25→21:50)
[2019-12-17 16:40] LABS: Glucose Point of Care 219 mg/dL (70-110)
[2019-12-17] MEDS: terazosin 5 mg Capsule PO (17:00)
[2019-12-17] MEDS: lidocaine 2% viscous 1.667 ML, diphenhydrAMINE oral liq 4.165 MG, aluminum-mag hydrox-s... MUCOUS MEM (17:49)
--- NOTE | 2019-12-17 19:24 | PC.NURSE ---
Introduction of staff and report received, aidet.
[2019-12-17] MEDS: latanoprost 0.005% Op Soln 2.5 mL Btl 1 DROP EYE-BOTH (23:30)
[2019-12-18] VITALS (17 sets, daily range): BP systolic 131–163; BP diastolic 54–72; PULSE 52–72; RESP 16–24; TEMP 36.3–37.6; O2SAT 88–98
[2019-12-18 00:05] LABS: Glucose Point of Care 423 mg/dL (70-110)
[2019-12-18 00:07] LABS: Glucose Point of Care 308 mg/dL (70-110)
[2019-12-18 05:09] LABS: Glucose Point of Care 243 mg/dL (70-110)
[2019-12-18] MEDS: ipratropium-albuterol 3 mL Neb INHALATION ×4 (05:35→20:05)
[2019-12-18 06:25] LABS: Basophils % 0.1 %; Eosinophils # 0.1 10^3/uL (0.0-0.8); Eosinophils % 1.2 %; Hematocrit 29.6 % (42.0-52.0); Hemoglobin 9.4 g/dL (11.7-16.6); Lymphocytes # 0.4 10^3/uL (0.8-4.8); Lymphocytes % 4.1 %; Mean Corpuscular HGB Conc 31.8 g/dL (30.0-36.0); Mean Corpuscular Hemoglobin 29.1 pg (28.0-34.0); Mean Corpuscular Volume 91.6 fL (80-94); Monocytes # 0.6 10^3/uL (0.2-0.9); Monocytes % 6.3 %; Neutrophils # 8.3 10^3/uL (1.8-7.7); Neutrophils % 87.8 %; Nucleated Red Blood Cells % 0 %; Platelet Count 193 10^3/cmm (130-400); Red Blood Count 3.23 10^6/uL (4.1-5.3); Red Cell Distribution Width 16.2 % (12.1-15.1); White Blood Count 9.4 10^3/uL (4.0-10.0)
[2019-12-18 06:43] LABS: Anion Gap 9.8 (5-19); Blood Urea Nitrogen 44 mg/dL (8-23); Calcium 8.6 mg/dL (8.5-10.5); Carbon Dioxide 31 mmol/L (22-29); Chloride 100 mmol/L (98-107); Glucose 202 mg/dL (65-115); Osmolality Calculated 286 mOsm/kg (285-295); Potassium 4.8 mmol/L (3.5-5.1); Sodium 136 mmol/L (136-145)
[2019-12-18 07:32] LABS: Glucose Point of Care 202 mg/dL (70-110)
[2019-12-18] MEDS: losartan 50 mg Tablet 25 MG PO (08:44)
[2019-12-18] MEDS: cloNIDine 0.1 mg Tablet 0.2 MG PO ×3 (08:53→21:02)
[2019-12-18] MEDS: FUROsemide 40 mg Tablet PO ×2 (08:53→15:34)
[2019-12-18] MEDS: clopidogrel 75 mg Tablet PO (08:53)
[2019-12-18] MEDS: atorvastatin 40 mg Tablet 10 MG PO (08:53)
[2019-12-18] MEDS: pantoprazole DR 40 mg Tablet PO (08:53)
[2019-12-18] MEDS: apixaban 5 mg Tablet PO ×2 (08:53→18:28)
[2019-12-18] MEDS: predniSONE 5 mg Tablet PO (08:54)
[2019-12-18] MEDS: metoprolol succinate ER (24 HR) 25 mg Tablet PO (08:54)
[2019-12-18] MEDS: amiodarone 200 mg Tablet PO (08:55)
[2019-12-18] MEDS: lactulose oral liq 20 gm/30 mL UDC PO (08:55)
[2019-12-18] MEDS: terazosin 5 mg Capsule PO ×2 (08:55→18:28)
[2019-12-18] MEDS: docusate sodium 100 mg Capsule PO ×2 (08:55→18:28)
[2019-12-18 11:05] LABS: Glucose Point of Care 301 mg/dL (70-110)
--- NOTE | 2019-12-18 11:55 | PC.SOCIAL ---
IMM Updated IMM Updated and given to patient. Initialed, dated, and timed and placed back in chart.
--- NOTE | 2019-12-18 12:15 | P.PN_ITS ---
Subjective Subjective: Interval history: Ion reports his breathing is about the same. Feels like he is less swollen. Medications: Reviewed: Yes Vitals/I&O/Wt Last Vital Signs Temp 98.8 F 12/18/19 10:55 Pulse 69 12/18/19 10:55 Resp 20 H 12/18/19 10:55 BP 143/57 12/18/19 10:55 Pulse Ox 95 12/18/19 10:55 12/17/19 12/18/19 12/18/19 22:59 06:59 14:59 Intake Total 300 / 540 480 / 1020 600 / 600 Output Total 2000 / 2600 Balance 300 / -60 -1520 / -1580 600 / 600 Weight last 48 hrs Weight 84.595 kg Weight 83.552 kg Physical Exam Narrative: EXAM NARRATIVE: General exam mild respiratory distress Cardiovascular regular rate and rhythm, heart sounds distant Lungs clear but diminished breath sounds bilaterally Abdomen is soft with positive bowel sounds Extremities trace bilateral edema. This is markedly improved from admission Data : 12/18/19 05:41 12/18/19 05:41 A&P Assessment and plan (1) CHF exacerbation: Continue Lasix 40 mg p.o. twice daily. Echocardiogram demonstrates preserved EF, bioprosthetic aortic valve. Status: Acute Code(s): I50.9 - Heart failure, unspecified (2) Leg edema: Improved with Lasix Status: Acute Code(s): R60.0 - Localized edema (3) Fall: He is now complaining of some left hip pain. X-ray demonstrated no fracture Status: Acute Code(s): W19.XXXA - Unspecified fall, initial encounter (4) Acute kidney injury superimposed on CKD: Creatinine improved at 1.4 Status: Acute Code(s): N17.9 - Acute kidney failure, unspecified; N18.9 - Chronic kidney disease, unspecified (5) COPD with emphysema: Continue prednisone, pulmonary toilet, theophylline Will likely be benefited by BiPAP at night, during the day as needed Status: Acute Code(s): J43.9 - Emphysema, unspecified (6) Diabetes mellitus: Sliding scale insulin, Lantus. He had had some hypoglycemic events. We will still hold Lantus but will give nighttime insulin dose as needed. Consider restarting low-dose Lantus tomorrow if needed Status: Acute Code(s): E11.9 - Type 2 diabetes mellitus without complications (7) Hyperlipidemia: Continue statin Status: Acute Code(s): E78.5 - Hyperlipidemia, unspecified (8) CAD (coronary artery disease): No active chest pain, on Plavix status post CAD in 2018 Status: Acute Code(s): I25.10 - Atherosclerotic heart disease of [place] coronary artery without angina pectoris (9) Atrial fibrillation: Continue Eliquis, metoprolol, amiodarone Status: Acute Code(s): I48.91 - Unspecified atrial fibrillation (10) NSTEMI (non-ST elevated myocardial infarction): Appears to be type II. No active chest pain. Status: Acute Code(s): I21.4 - Non-ST elevation (NSTEMI) myocardial infarction Attestations Medical Necessity Statement*: Needs continued hospital stay, for pulmonary toilet, close follow-up of fluids and renal function pending senior care facility placement Coding Level of Care Code Acute Community Specialist for [facility] Fwd Diagnoses CHF exacerbation I50.9 Leg edema R60.0 Fall W19.XXXA Acute kidney injury superimposed on CKD N17.9; N18.9 COPD with emphysema J43.9 Diabetes mellitus E11.9 Hyperlipidemia E78.5 CAD (coronary artery disease) I25.10 Atrial fibrillation I48.91 NSTEMI (non-ST elevated myocardial infarction) I21.4
[2019-12-18 16:32] LABS: Glucose Point of Care 115 mg/dL (70-110)
[2019-12-18] MEDS: lidocaine 2% viscous 1.667 ML, diphenhydrAMINE oral liq 4.165 MG, aluminum-mag hydrox-s... MUCOUS MEM (16:43)
[2019-12-18] MEDS: latanoprost 0.005% Op Soln 2.5 mL Btl 1 DROP EYE-BOTH (21:04)
[2019-12-18 21:53] LABS: Glucose Point of Care 412 mg/dL (70-110)
[2019-12-18 22:02] LABS: Glucose Point of Care 388 mg/dL (70-110)
[2019-12-19] VITALS (19 sets, daily range): BP systolic 119–138; BP diastolic 54–68; PULSE 60–82; RESP 16–118; TEMP 36.7–37.5; O2SAT 92–98
[2019-12-19 01:10] LABS: Glucose Point of Care 248 mg/dL (70-110)
[2019-12-19] MEDS: ipratropium-albuterol 3 mL Neb INHALATION ×5 (02:38→16:01)
[2019-12-19 04:11] LABS: Glucose Point of Care 177 mg/dL (70-110)
[2019-12-19 06:45] LABS: Glucose Point of Care 270 mg/dL (70-110)
[2019-12-19] MEDS: docusate sodium 100 mg Capsule PO (08:42)
[2019-12-19] MEDS: pantoprazole DR 40 mg Tablet PO (08:43)
[2019-12-19] MEDS: losartan 50 mg Tablet 25 MG PO (08:43)
[2019-12-19] MEDS: atorvastatin 40 mg Tablet 10 MG PO (08:44)
[2019-12-19] MEDS: metoprolol succinate ER (24 HR) 25 mg Tablet PO (08:44)
[2019-12-19] MEDS: amiodarone 200 mg Tablet PO (08:44)
[2019-12-19] MEDS: FUROsemide 40 mg Tablet PO ×2 (08:44→15:18)
[2019-12-19] MEDS: cloNIDine 0.1 mg Tablet 0.2 MG PO ×2 (08:44→15:18)
[2019-12-19] MEDS: clopidogrel 75 mg Tablet PO (08:44)
[2019-12-19] MEDS: apixaban 5 mg Tablet PO (08:44)
[2019-12-19] MEDS: terazosin 5 mg Capsule PO (08:50)
[2019-12-19 10:57] LABS: Glucose Point of Care 344 mg/dL (70-110)
--- NOTE | 2019-12-19 12:15 | P.DS_ITS ---
Discharge Providers Date of Admission: 12/13/19 17:52 Date of Discharge: December 19, 2019 Attending Provider at Admission: Chapito Whitlock MD Attending Provider at Discharge: Ramin Villagran MD Primary Care Provider: Sandy Cason Diagnoses at Discharge Discharge Diagnosis (1) CHF exacerbation: Status: Acute Problem details: Improved. Echocardiogram demonstrated preserved EF, diastolic dysfunction (2) Leg edema: Status: Acute Problem details: Improved. Venous duplex negative. (3) Fall: Status: Acute (4) Acute kidney injury superimposed on CKD: Status: Acute Problem details: Stable (5) COPD with emphysema: Status: Acute Problem details: Severe but stable (6) Diabetes mellitus: Status: Acute Problem details: Stable (7) Hyperlipidemia: Status: Acute (8) CAD (coronary artery disease): Status: Acute Problem details: Stable (9) Atrial fibrillation: Status: Acute Problem details: Rate controlled (10) NSTEMI (non-ST elevated myocardial infarction): Status: Acute Problem details: Type II Reason for Visit Reason for Visit: Reason For Visit: WEAKNESS Hospital Course Discharge Summary: Ion is an 84-year-old white male with severe COPD who presented to the hospital with lower extremity swelling, weakness. He had pre viously been in the hospital for COPD exacerbation. Troponin was elevated but no significant delta. He was placed in the hospital and received pulmonary toilet, and IV diuresis. Echocardiogram demonstrated preserved EF, diastolic dysfunction. It was apparent, with his severe COPD and other comorbidities that he was significantly weak. Therefore skilled placement was pursued. This was achieved on December 18 and he was discharged to skilled care. During his hospital stay he also had some pain in his left hip and secondary to previous history of falls this was x-rayed. It did not demonstrate any fracture. During his hospital stay his pain improved. From previous hospital stay, he had significant urinary retention regarding catheter placement. His follow-up with urology was rescheduled. Physical Exam Narrative: EXAM NARRATIVE: General exam mild respiratory distress Cardiovascular regular in rhythm Lungs diminished breath sounds bilaterally Abdomen is soft positive bowel sounds Extremities trace edema Discharge Data Data Completed and Pending: Completed Studies During Hospitalization Category Date Time Status CT head wo con* 7 0450 Urgent Cat Scan 12/13/19 18:10 Completed XR chest 1V amanda ble [id number] Stat Exams 12/13/19 14:03 Completed XR hand LT 2V 731 20 Stat Exams 12/13/19 18:10 Completed XR hip LT 2-3V wo /w pel* [id number] Rout ine Exams 12/17/19 09:42 Completed CV echo complete* [id number] Routine Ultrasound 12/14/19 21:10 Completed Labs from last 24 hours 12/19/19 12/19/19 12/19/19 10:52 06:38 03:56 POC Glucose 344 270 177 12/19/19 12/18/19 12/18/19 00:35 21:59 20:31 POC Glucose 248 388 412 12/18/19 16:05 POC Glucose 115 Vitals: Last Vital Signs Temp 98.3 F 12/19/19 11:41 Pulse 66 12/19/19 11:41 Resp 16 12/19/19 11:41 BP 126/58 12/19/19 11:41 Pulse Ox 94 12/19/19 11:41 Discharge Plan Discharge Patient Disposition: Xfer SNF Condition: Stable Prescriptions: New albuterol sulfate 1.25 mg/3 mL solution for nebulization 1.25 mg INHALATION QID Qty: 90 RF: 0 furosemide 40 mg Tablet 40 mg PO BID@,16 Qty: 60 RF: 0 Tresiba U-100 Insulin 100 unit/mL solution 5 unit SUBCUT DAILY Qty: 10 RF: 0 Continued omeprazole 20 mg Tablet,Delayed Release (Dr/Ec) 20 mg PO DAILY PRN (Reason: Dyspepsia) RF: 0 Tylenol 325 mg Tablet 325 mg PO QID PRN (Reason: Pain) RF: 0 Klor-Con 10 10 mEq Tablet Extended Release 10 meq PO DAILY RF: 0 nitroglycerin 0.4 mg Tablet, Sublingual 0.4 mg SUBLINGUAL Q5M PRN (Reason: Chest Pain) RF: 0 docusate sodium 100 mg Tablet 100 mg PO BID RF: 0 latanoprost 0.005 % drops 1 drp ophthalmic (eye) BEDTIME RF: 0 terazosin 5 mg capsule 5 mg PO BID RF: 0 atorvastatin 10 mg tablet 10 mg PO DAILY RF: 0 theophylline 400 mg tablet extended release 24 hr 400 mg PO BEDTIME RF: 0 amiodarone 200 mg tablet 200 mg PO DAILY RF: 0 prednisone 5 mg tablet 5 mg PO EVERY OTHER DAY RF: 0 clopidogrel 75 mg tablet 75 mg PO DAILY RF: 0 clonidine HCl 0.2 mg tablet 0.2 mg PO TID RF: 0 metoprolol succinate 25 mg tablet extended release 24 hr 25 mg PO DAILY RF: 0 olmesartan 20 mg tablet 10 mg PO DAILY RF: 0 insulin lispro [Humalog KwikPen Insulin] 100 unit/mL insulin pen See Rx Instructions .ROUTE .COMPLEX RF: 0 Spiriva with HandiHaler 18 mcg capsule, w/inhalation device 1 cap INHALATION DAILY RF: 0 Eliquis 5 mg tablet 5 mg PO BID RF: 0 Breo Ellipta 100-25 mcg/dose blister with device 1 ea INHALATION DAILY RF: 0 Discontinued Tylenol-Codeine #3 300-30 mg Tablet See Rx Instructions .ROUTE .COMPLEX PRN (Reason: Pain) RF: 0 levofloxacin 750 mg Tablet 750 mg PO DAILY RF: 0 furosemide 40 mg tablet 80 mg PO DAILY RF: 0 albuterol sulfate 2.5 mg /3 mL (0.083 %) solution for nebulization 2.5 mg inhalation TID RF: 0 albuterol sulfate 90 mcg/actuation HFA aerosol inhaler 2 puff INHALATION Q6H PRN (Reason: Shortness Of Breath) RF: 0 Tresiba FlexTouch U-200 200 unit/mL (3 mL) insulin pen 28 unit SUBCUT BEDTIME RF: 0 Discharge Orders: Discharge Order (Routine); Ordered 12/19/19 Ordered By: Ramin Villagran Referrals: [facility] [Other] [facility] [Outside] - 4-7 days Sandy Cason [Primary Care Provider] - Bi Marmolejo MD [Physician] - 4-7 days (Follow-up indwelling catheter. Had to reschedule appointment secondary to hospitalization) Discharge Diet: Cardiac and Diabetic Discharge Activity: Increase activity as tolerated Activity Restrictions/Additional Instructions: Oxygen 4 L per mask or nasal cannula titrate for sat greater than or equal to 90% Take all medicine as prescribed Discharge Attestations Time Spent in Discharge Care*: greater than 30 min Quality Metrics Clinical Quality Measures During this hospital stay, did patient experience: None Coding Level of Care Code Acute Budget Coordinator for [facility] Fwd Diagnoses CHF exacerbation I50.9 Leg edema R60.0 Fall W19.XXXA Acute kidney injury superimposed on CKD N17.9; N18.9 COPD with emphysema J43.9 Diabetes mellitus E11.9 Hyperlipidemia E78.5 CAD (coronary artery disease) I25.10 Atrial fibrillation I48.91 NSTEMI (non-ST elevated myocardial infarction) I21.4
== END 2019-12-19 16:45 | disposition home or self-care (01) | DRG 280 ==
LOC: ER 16:51 → MEDSURG 12-14 08:38
PROVIDERS: Admitting Provider Family Medicine; Emergency Provider Emergency Medicine; PCP Nurse Practitioner Family; Visit Provider Internal Medicine
DX: I13.0 Hypertensive heart and chronic kidney disease with heart failure and stage 1 through stage 4 chronic kidney disease, or unspecified chronic kidney disease (principal); I21.A1 Myocardial infarction type 2; I50.33 Acute on chronic diastolic (congestive) heart failure; N17.9 Acute kidney failure, unspecified; J44.1 Chronic obstructive pulmonary disease with (acute) exacerbation; I48.92 Unspecified atrial flutter; N18.9 Chronic kidney disease, unspecified; E11.9 Type 2 diabetes mellitus without complications; E78.5 Hyperlipidemia, unspecified; I25.10 Atherosclerotic heart disease of native coronary artery without angina pectoris; I48.91 Unspecified atrial fibrillation; J44.9 Chronic obstructive pulmonary disease, unspecified; R33.8 Other retention of urine; W19.XXXA Unspecified fall, initial encounter; Z99.81 Dependence on supplemental oxygen; Z87.891 Personal history of nicotine dependence; Z79.51 Long term (current) use of inhaled steroids; Z79.899 Other long term (current) drug therapy; Z79.4 Long term (current) use of insulin; Z79.83 Long term (current) use of bisphosphonates; Z79.82 Long term (current) use of aspirin
CPT/HCPCS: 12345; 36415; 36416; 36600; 70450; 71045; 73120; 73502; 74176; 80048; 80053; 80307; 81001; 82550; 82803; 82962; 83605; 83735; 83880; 84100; 84484; 85025; 85610; 87086; 87804; 93005; 93306; 93971; 94640; 94660; 94762; 96360; 96372; 96375; 97110; 97116; 97161; 97166; 97530; 97535; 99283; 99284; A9270; J1815; J1940; J7030; J7512

== ENCOUNTER 2020-02-20 06:40 | Outpatient (CLI) | payer MEDICARE, SELFPAY ==
[2020-02-20 13:27] LABS: Anion Gap 13.7 (5-19); Blood Urea Nitrogen 16 mg/dL (8-23); Calcium 9.2 mg/dL (8.5-10.5); Carbon Dioxide 32 mmol/L (22-29); Chloride 99 mmol/L (98-107); Glucose 96 mg/dL (65-115); Osmolality Calculated 286 mOsm/kg (285-295); Potassium 4.7 mmol/L (3.5-5.1); Sodium 140 mmol/L (136-145)
== END 2020-02-20 06:41 | disposition home or self-care (01) ==
LOC: LAB 11:27
PROVIDERS: PCP Nurse Practitioner Family; Visit Provider Internal Medicine Critical Care Medicine
DX: J44.9 Chronic obstructive pulmonary disease, unspecified (principal)
CPT/HCPCS: 80048

== ENCOUNTER → 2020-03-30 15:38 | Outpatient (BNVA) | payer MEDICARE, SELFPAY | PROVIDERS: PCP Nurse Practitioner Family; Visit Provider Nurse Practitioner Family | DX: R33.9 Retention of urine, unspecified (principal) | CPT/HCPCS: 81001 ==

== ENCOUNTER → 2020-05-05 15:11 | Outpatient (BNVA) | payer MEDICARE, SELFPAY | PROVIDERS: PCP Nurse Practitioner Family; Visit Provider Internal Medicine Critical Care Medicine | DX: J44.9 Chronic obstructive pulmonary disease, unspecified (principal); I50.9 Heart failure, unspecified; J96.90 Respiratory failure, unspecified, unspecified whether with hypoxia or hypercapnia | CPT/HCPCS: 80048 ==

== ENCOUNTER → 2020-12-10 16:03 | Outpatient (BNVA) | payer MEDICARE, SELFPAY | PROVIDERS: PCP Nurse Practitioner Family; Visit Provider Internal Medicine Critical Care Medicine | DX: J44.9 Chronic obstructive pulmonary disease, unspecified (principal); I50.9 Heart failure, unspecified; J96.90 Respiratory failure, unspecified, unspecified whether with hypoxia or hypercapnia; R04.0 Epistaxis | CPT/HCPCS: 80048 ==

== ENCOUNTER 2021-01-18 13:12 | Outpatient (CLI) | payer MEDICARE, SELFPAY ==
--- NOTE | 2021-01-18 13:30 | USCV_ITS ---
Ion Messina Age: 86 Gender: M : 1935 Exam Date: 01/18/2021 13:41 Ordering Phys: Quoc Leigh M.D ([email or web address]) Technologist: Jazz Brady Exam Location: [facility] [place] Indication: ATHEROSCLEROTIC HEART DISEASE BP: 213 / 78 HR: 66 Rhythm: Sinus Technical Quality: Adequate MEASUREMENTS (Male / Female) Normal Values 2D ECHO LV Diastolic Diameter PLAX 3.5 cm 4.2 - 5.9 / 3.9 - 5.3 cm LV Systolic Diameter PLAX 2.8 cm LV Chamber Size 3.9 cm IVS Diastolic Thickness 1.3 cm 0.6 - 1.0 / 0.6 - 0.9 cm IVS Systolic Thickness 1.8 cm LVPW Diastolic Thickness 2.3 cm 0.6 - 1.0 / 0.6 - 0.9 cm LVPW Systolic Thickness 2.3 cm RV Chamber Size 2.9 cm LVOT Diameter 2.0 cm LV Ejection Fraction 2D Teich 44.8 % LV Ejection Fraction MOD 2C 57.0 % LV Ejection Fraction 2C AL 54.5 % LA Diameter 2.6 cm LA Width 3.4 cm LA Height 4.8 cm RA Width 3.1 cm RA Height 4.4 cm Aorta at Sinotubular Diameter 2.3 cm M-MODE LV Diastolic Diameter MM 5.0 cm 4.2 - 5.9 / 3.9 - 5.3 cm LV Systolic Diameter MM 3.3 cm LV Ejection Fraction MM Teich 63.2 % IVS Diastolic Thickness MM 1.1 cm 0.6 - 1.0 / 0.6 - 0.9 cm IVS Systolic Thickness MM 1.2 cm LVPW Diastolic Thickness MM 1.1 cm 0.6 - 1.0 / 0.6 - 0.9 cm LVPW Systolic Thickness MM 1.4 cm Aortic Annulus Diameter 2.2 cm LA Ao Ratio MM 0.8 MV E Point Septal Separation 1.0 cm DOPPLER AV Peak Velocity 264.3 cm/s LVOT Peak Velocity 112.3 cm/s AV Area Cont Eq vti 2.0 cm squared AV Area Cont Eq pk 1.4 cm squared MV Area PHT 2.7 cm squared Mitral E to A Ratio 0.8 MV E' Velocity 65.5 cm/s Mitral E to MV E' Ratio 11.3 Mitral E to LV E' Lateral Ratio 13.2 Mitral E to LV E' Septal Ratio 9.9 TR Peak Velocity 157.0 cm/s TR Peak Gradient 9.9 mmHg TV Peak E Velocity 45.0 cm/s Right Atrial Pressure 3.0 mmHg Pulmonary Artery Systolic Pressu 12.9 mmHg PV Peak Velocity 87.0 cm/s RV Acceleration Time 0.1 s RV Ejection Time 0.4 s RV AcT/ET 0.2 FINDINGS Left Ventricle Normal left ventricular size. LV systolic function is normal with EF of 55-60%. No regional wall motion abnormalities. Grade 1 diastolic dysfunction Right Ventricle The right ventricle is normal in size and function. Right Atrium The right atrium is normal in size. Left Atrium The left atrium is normal in size. Mitral Valve Mitral annular calcification is noted without significant stenosis or prolapse. There is trace mitral regurgitation. Aortic Valve Bioprosthetic aortic valve is noted in normal position. Mean gradient across the bioprosthetic aortic valve is 12 mmHg. DVI of 0.55. Normally functioning aortic valve. There is no aortic regurgitation. Tricuspid Valve Structurally normal tricuspid valve without significant stenosis or regurgitation. Insufficient TR jet to calculate RVSP Pulmonic Valve Structurally normal pulmonic valve without significant stenosis. There is no pulmonic regurgitation. Pericardium Normal pericardium without effusion. Aorta Normal ascending aorta dimension. CONCLUSIONS LV systolic function is normal with EF of 55-60% Grade 1 diastolic dysfunction Bioprosthetic aortic valve is noted in normal position. Mean gradient across the bioprosthetic aortic valve is 12 mmHg. DVI of 0.55. Normally functioning aortic valve. There is no aortic regurgitation. Compared to prior echocardiogram from 12/14/2019, no significant changes are noted Quoc Leigh MD (Electronically Signed) Final Date: 24 January 2021 15:55 S
== END 2021-01-18 13:13 | disposition home or self-care (01) ==
LOC: US 13:14
PROVIDERS: PCP Nurse Practitioner Family; Visit Provider Internal Medicine
DX: I25.10 Atherosclerotic heart disease of native coronary artery without angina pectoris (principal); Z95.2 Presence of prosthetic heart valve
CPT/HCPCS: 93306

== ENCOUNTER → 2021-03-30 13:47 | Outpatient (BNVA) | payer MEDICARE, SELFPAY | PROVIDERS: PCP Nurse Practitioner Family; Visit Provider Internal Medicine Critical Care Medicine | DX: I50.9 Heart failure, unspecified (principal); J44.9 Chronic obstructive pulmonary disease, unspecified; J96.90 Respiratory failure, unspecified, unspecified whether with hypoxia or hypercapnia; R04.0 Epistaxis; E78.5 Hyperlipidemia, unspecified; E11.9 Type 2 diabetes mellitus without complications; I25.10 Atherosclerotic heart disease of native coronary artery without angina pectoris; Z79.899 Other long term (current) drug therapy | CPT/HCPCS: 80053; 83735; 84100; 85025 ==

== ENCOUNTER 2021-06-25 00:55 | Emergency (ER) | payer MEDICARE, SELFPAY ==
[2021-06-25 00:57] VITALS: PULSE 67; RESP 18; TEMP 36.4; O2SAT 96; BMI 24.4
--- NOTE | 2021-06-25 00:57 | W.ED.EPISTAX ---
HPI - Epistaxis General: Chief complaint: Epistaxis Stated complaint: nose bleed Source: patient Mode of arrival: ambulatory Limitations: no limitations History of Present Illness: HPI Narrative: 6-year-old male who is here with a nosebleed. He states started having nosebleed out of the right nare 1 hour ago. He has had a history of nosebleeds. He is on oxygen 60 L at baseline at home as high blood pressure and his Eliquis. He states that his 90s and a hard time getting it stopped. Epigastric cyst currently is stopped. He denies any worsening improving factors. complaint: epistaxis Location: right nostril Onset (ago): hour(s) Duration: intermittent Context: history of previous, other anticoagulant use and hypertension Associated symptoms: Deny fever(s), headache(s) or vomiting Review of Systems Const: Denies: fever(s), chills, body aches or change in appetite Eyes: Denies: blurry vision or eye discomfort ENMT: Reports: epistaxis Card: Denies: chest pain Resp: Denies: dyspnea GI: Denies: abdominal pain, nausea, vomiting or diarrhea : Denies: dysuria Musc: Denies: neck pain or back pain Skin/Breast: Denies: rash Neuro: Denies: headache(s) Psych: Denies: depression Balaji/Lymph: Denies: easy bruising All/Imm: Denies: urticaria PFSH ED PFSH: Medical History Anticoagulation adequate with anticoagulant therapy Atrial fibrillation Rate controlled BPH loc w urin obs/LUTS CAD (coronary artery disease) Stable Diabetes mellitus Stable Gross hematuria Hyperlipidemia Urinary retention Surgical History Aortic valve replaced H/O heart artery stent H/O shoulder surgery Hx of cataract surgery bilateral S/P carpal tunnel release Family History Father , 82 CAD (coronary artery disease) Mother , 60's Epilepsia Social History Quit status (tobacco): has quit using tobacco Year quit tobacco: 1993 - PD x 45 Years Alcohol intake: never Lives independently: Yes Household members: spouse Housing: House Marital status: Current occupational status: retired History of recent travel: No Current gender identity: Male Physical Exam Const: COMMON NORMALS: no acute distress, patient oriented x3 and healthy appearing HENMT: COMMON NORMALS: normocephalic and atraumatic HEAD & SCALP: normocephalic and atraumatic OTHER: dried blood in right nare no active bleeding Eye: COMMON NORMALS: Equal, round and reactive pupils present and EOMs intact bilaterally PUPIL: Yes Equal, round and reactive pupils present Neck/C-Spine: COMMON NORMALS: full ROM and supple Chest: COMMONS NORMALS: normal inspection of the chest and normal palpation of entire chest wall Resp: COMMON NORMALS: normal respiratory effort, No retractions, No use of accessory muscles and clear to auscultation bilaterally AUSCULTATION: clear to auscultation bilaterally Cardio: COMMON NORMALS: regular rate, regular rhythm and No murmurs present (Cardio) RATE: regular rate RHYTHM: regular rhythm GI: COMMON NORMALS: Normal to inspection, nondistended, normoactive bowel sounds present, Soft to palpation, non-tender and no masses PALPATION: Yes Soft to palpation Extremity: COMMON NORMALS: normal to inspection and full ROM Neuro: COMMON NORMALS: patient oriented x3, moves all extremities and no focal motor deficits Psych: COMMON NORMALS: mental status grossly normal, Normal thought process present and cooperative THOUGHT PROCESS: Normal thought process present Skin: COMMON NORMALS: no rashes or lesions noted and no wounds GENERAL SKIN EXAM: no rashes or lesions noted Course Vital Signs: Vital signs: Vital Signs Temperature 97.6 F 06/25/21 02:34 Pulse Rate 68 06/25/21 02:34 Respiratory Rate 18 06/25/21 02:34 Pulse Oximetry 96 06/25/21 02:34 MDM - Epistaxis MDM Narrative: Medical decision making narrative: Patient presents here with epistaxis and since resolved. Patient sent home with a nose clamp and is to follow-up with ENT. He is return if his bleeding worsens he understands agrees to plan. Lab Data: Labs: Lab Results 06/25/21 06/25/21 Range/Units 01:10 01:25 WBC 6.7 (4.0-10.0) 10^3/ uL RBC 2.85 L (4.1-5.3) 10^6/u L Hgb 7.9 L (11.7-16.6) g/dL Hct 25.9 L (42.0-52.0) % MCV 90.9 (80-94) fl MCH 27.7 L (28.0-34.0) pg MCHC 30.5 (30.0-36.0) g/dL RDW 15.6 H (12.1-15.1) % Plt Count 287 (130-400) 10^3/c mm MPV 9.2 (7.4-10.4) fL Neut % (Auto) 69.0 % Lymph % (Auto) 12.4 % Davidson % (Auto) 8.2 % Eos % (Auto) 9.7 % Baso % (Auto) 0.4 % Neut # (Auto) 4.63 (1.8-7.7) 10^3/u L Lymph # (Auto) 0.8 (0.8-4.8) 10^3/u L Davidson # (Auto) 0.6 (0.2-0.9) 10^3/u L Eos # (Auto) 0.7 (0.0-0.8) 10^3/u L Baso # (Auto) 0.0 (0.0-0.1) 10^3/u L Nucleated RBC % (a uto) 0 % Nucleated RBCs # 0.0 /100WBC PT 13.70 (12.1-14.9) SECO NDS INR 1.02 (0.8-1.2) Discharge Plan Discharge Patient Disposition: Home Clinical Impression: Epistaxis Condition: Stable Prescriptions: No Action aspirin [Adult Low Dose Aspirin] 81 mg tablet,delayed release (DR/EC) 81 mg PO DAILY RF: 0 Tresiba U-100 Insulin 100 unit/mL solution 26 unit SUBCUT DAILY RF: 0 furosemide 40 mg tablet 40 mg PO DAILY RF: 0 azithromycin 250 mg tablet 250 mg PO .COMPLEX 90 Days Qty: 45 RF: 3 formoterol fumarate [Perforomist] 20 mcg/2 mL solution for nebulization See Rx Instructions .ROUTE .COMPLEX Qty: 360 RF: 3 tamsulosin 0.4 mg capsule 0.4 mg PO BID Qty: 180 RF: 3 finasteride 5 mg tablet See Rx Instructions .ROUTE .COMPLEX Qty: 90 RF: 1 budesonide 0.25 mg/2 mL suspension for nebulization See Rx Instructions .ROUTE .COMPLEX Qty: 120 RF: 6 albuterol sulfate 90 mcg/actuation HFA aerosol inhaler See Rx Instructions .ROUTE .COMPLEX Qty: 18 RF: 3 Yupelri 175 mcg/3 mL solution for nebulization See Rx Instructions .ROUTE .COMPLEX Qty: 90 RF: 7 prednisone 2.5 mg tablet See Rx Instructions .ROUTE .COMPLEX Qty: 15 RF: 3 albuterol sulfate 1.25 mg/3 mL solution for nebulization See Rx Instructions .ROUTE .COMPLEX Qty: 150 RF: 3 nitroglycerin 0.4 mg Tablet, Sublingual 0.4 mg SUBLINGUAL Q5M PRN (Reason: Chest Pain) RF: 0 docusate sodium 100 mg Tablet 100 mg PO BID RF: 0 latanoprost 0.005 % drops 1 drp ophthalmic (eye) BEDTIME RF: 0 atorvastatin 10 mg tablet 10 mg PO DAILY RF: 0 amiodarone 200 mg tablet 200 mg PO DAILY RF: 0 clonidine HCl 0.2 mg tablet 0.2 mg PO TID RF: 0 olmesartan 20 mg tablet 10 mg PO DAILY RF: 0 insulin lispro [Humalog KwikPen Insulin] 100 unit/mL insulin pen See Rx Instructions .ROUTE .COMPLEX RF: 0 Eliquis 5 mg tablet 5 mg PO BID RF: 0 metoprolol succinate 25 mg tablet extended release 24 hr 12.5 mg PO DAILY RF: 0 Discharge Orders: Discharge ED (Routine); Ordered 06/25/21 Ordered By: Karina Steiner Referrals: Sandy Cason FNP [Primary Care Provider] - Clayton Andino MD [Physician] - 1-3 days Discharge Diet: Advance as tolerated Discharge Activity: Resume usual activity Patient Instructions: Epistaxis (ED) Coding Level of Care Code ED Double [place] for Chg Fwd Exam Comprehensive
[2021-06-25 01:27] LABS: Basophils % 0.4 %; Eosinophils # 0.7 10^3/uL (0.0-0.8); Eosinophils % 9.7 %; Hematocrit 25.9 % (42.0-52.0); Hemoglobin 7.9 g/dL (11.7-16.6); Lymphocytes # 0.8 10^3/uL (0.8-4.8); Lymphocytes % 12.4 %; Mean Corpuscular HGB Conc 30.5 g/dL (30.0-36.0); Mean Corpuscular Hemoglobin 27.7 pg (28.0-34.0); Mean Corpuscular Volume 90.9 fl (80-94); Mean Platelet Volume 9.2 fL (7.4-10.4); Monocytes # 0.6 10^3/uL (0.2-0.9); Monocytes % 8.2 %; Neutrophils # 4.63 10^3/uL (1.8-7.7); Nucleated Red Blood Cells % 0 %; Platelet Count 287 10^3/cmm (130-400); Red Blood Count 2.85 10^6/uL (4.1-5.3); Red Cell Distribution Width 15.6 % (12.1-15.1); White Blood Count 6.7 10^3/uL (4.0-10.0)
[2021-06-25 01:29] LABS: INR 1.02 (0.8-1.2)
[2021-06-25 02:33] VITALS: PULSE 68; RESP 18
[2021-06-25 02:34] VITALS: PULSE 68; RESP 18; TEMP 36.4; O2SAT 96
--- NOTE | 2021-06-25 08:52 | DCPLANNER ---
Addendum entered by Sima Rubin 07/01/21 08:50: Patient had a follow up appointment scheduled with ENT - appointment was cancelled. Addendum entered by Sima Rubin 06/25/21 10:44: Patient was seen again on 06.25.[address] Guerrero, showcase trimmer was asked to call the office of Dr. Andino to see if patient could be seen next week. veterinary practice manager called the ENT clinic, spoke with Mayuri, patient has an appointment scheduled for 06.25.21 at 3:[address] Andino. Original Note: veterinary practice manager had message to schedule a follow up appointment for patient with Dr. Andino, ENT. veterinary practice manager emailed patients information to Marah Messina and Fara at [facility] General Surgery / ENT. Patients information will be printed and reviewed. Clinic will call patient with appointment information.
== END 2021-06-25 02:52 | disposition home or self-care (01) ==
PROVIDERS: Emergency Provider Emergency Medicine; PCP Nurse Practitioner Family
DX: R04.0 Epistaxis (principal); Z79.01 Long term (current) use of anticoagulants; Z79.82 Long term (current) use of aspirin; Z79.4 Long term (current) use of insulin; I25.10 Atherosclerotic heart disease of native coronary artery without angina pectoris; E11.9 Type 2 diabetes mellitus without complications; E78.5 Hyperlipidemia, unspecified; Z87.891 Personal history of nicotine dependence
CPT/HCPCS: 85025; 85610; 99283

== ENCOUNTER 2021-06-25 08:21 | Emergency (ER) | payer MEDICARE, SELFPAY ==
[2021-06-25] VITALS (9 sets, daily range): BP systolic 141–227; BP diastolic 60–153; PULSE 55–83; RESP 18–22; TEMP 36.7; O2SAT 95–99; BMI 21.6
--- NOTE | 2021-06-25 08:25 | ED_ITS ---
HPI - Epistaxis General: Chief complaint: Epistaxis Stated complaint: EPISTAXIS Time Seen by Provider: 06/25/21 08:25 History of Present Illness: HPI Narrative: Mr. Messina is an 86-year-old gentleman with complex past medical history including use of anticoagulation, chronic hypoxic respiratory failure on 6 L at baseline who presents to the emergency department due to recurrent epistaxis. Due to use of nasal cannula he has a history of epistaxis and presented to the emergency department last night however at that time his symptoms have largely resolved. Around 3 AM this morning he noted worsening again. He tried nasal clamping without significant relief. He reports generalized malaise but no specific lightheadedness, worsening shortness of breath, or chest pain. He has taken his morning medications. He is noted to be hypertensive which she says is not typical of him. Overall the intensity of bleeding is moderate, he denies similar episodes this bad in the past. No other specific exacerbating or relieving factors identified. Review of Systems General: Reports: 10 or more systems reviewed and unremarkable except in HPI and below Narrative: CONSTITUTIONAL: denies fever, fatigue, weakness EYES - denies pain, denies loss of vision EARS - denies ear issues. NOSE -epistaxis as noted in HPI. THROAT - denies sore throat or difficulty swallowing. CARDIOVASCULAR - denies chest pain and palpitations RESPIRATORY - denies shortness of breath and cough GASTROINTESTINAL - denies abdominal pain, no nausea vomiting, no changes in bowel habits GENITOURINARY - denies dysuria or urinary frequency MUSCULOSKELETAL- denies deformity or pain SKIN - denies rashes or new changed skin lesions NEUROLOGIC - denies focal weakness or sensory changes HEMATOLOGIC/LYMPHATIC -positive for easy bruising. Denies lymphadenopathy. [facility] ED PFSH: Medical History (Updated 06/25/21 @ 11:24 by Vick Guerrero MD) Anticoagulation adequate with anticoagulant therapy Atrial fibrillation Rate controlled BPH loc w urin obs/LUTS CAD (coronary artery disease) Stable Diabetes mellitus Stable Gross hematuria Hyperlipidemia Urinary retention Surgical History Aortic valve replaced H/O heart artery stent H/O shoulder surgery Hx of cataract surgery bilateral S/P carpal tunnel release Family History Father , 82 CAD (coronary artery disease) Mother , 60's Epilepsia Social History Quit status (tobacco): has quit using tobacco Year quit tobacco: 1993 - 2PPD x 45 Years Alcohol intake: never Lives independently: Yes Household members: spouse Housing: House Marital status: Current occupational status: retired History of recent travel: No Current gender identity: Male Physical Exam Narrative: EXAM NARRATIVE: GENERAL/CONSTITUTIONAL -chronically ill-appearing. No acute distress. Eyes - PERRL, no conjunctival injection ENMT -nasal Clamp in place. There is clot with continued oozing in bilateral nares. Clot noted in the posterior pharynx. Supplemental oxygen via the patient's mouth. Somewhat dry mucous membranes. NECK - supple. trachea midline CARDIOVASCULAR -irregular rate and rhythm. RESPIRATORY -diminished and coarse to auscultation bilaterally. No retractions or accessory muscle use. ABDOMEN/GI - Nontender/Nondistended. No tenderness to percussion or evidence of peritonitis MSK - Extremities without obvious deformity or tenderness to palpation SKIN - Warm, Dry NEURO - alert and appropriately oriented. strength and sensation intact. Moves all extremities equally. Procedures Epistaxis Control Time Out Performed: Yes Nostril: right Direct Inspection: yes and unable to visualize Clots Removed by: suction Cautery Used: none Device Inserted: nasal tampon Patient Tolerated Procedure: well Course ED course: - Patient was seen and evaluated by me at bedside - Patient placed on cardiac monitors, IV access obtained - Initial evaluation notable for chronically ill appearance, no acute distress. -Clots in bilateral naris with continued oozing. Clots suctioned with continued bleeding and no specific identifiable source on visual inspection though suspect right nare given patient reported history and exam. Attempted Afrin spray and repeat clamping. - Labs notable for stable hemoglobin. -Patient had continued oozing after Afrin and direct clamping. Additionally discontinued after improved blood pressure control - Rhino Rocket placed with improvement. - Upon serial reexamination after treatment the patient was improved - Based on patient history, evaluation, labs, and imaging as interpreted the most likely cause of the patient's condition is epistaxis complicated by anticoagulation use agent hypertension - Patient follow-up arranged with ENT for removal. - The results of ED evaluation were discussed with the patient including prescriptions and/or symptomatic cares (if applicable) including appropriate and responsible use, followup plan, and return precautions. The patient verbalized understanding and felt safe for discharge. - Patient discharged in satisfactory condition. Vital Signs: Vital signs: Vital Signs Temperature 98.1 F 06/25/21 08:27 Pulse Rate 62 06/25/21 12:00 Respiratory Rate 20 H 06/25/21 12:00 Blood Pressure 158/94 06/25/21 12:00 Pulse Oximetry 97 06/25/21 12:00 MDM - Epistaxis Medical Records: Attestation: I reviewed the patient's medical records. Lab Data: Attestation: I reviewed the patient's lab results. Labs: Lab Results 06/25/21 06/25/21 Range/Units 08:30 09:27 Hgb 8.5 L (11.7-16.6) g/dL Hct 28.1 L (42.0-52.0) % POC Glucose 125 H (70-110) mg/dL Discharge Plan Discharge Patient Disposition: Home Clinical Impression: Epistaxis, Hypertension Condition: Stable Prescriptions: New cephalexin 500 mg capsule 500 mg PO BID 7 Days Qty: 14 RF: 0 No Action aspirin [Adult Low Dose Aspirin] 81 mg tablet,delayed release (DR/EC) 81 mg PO QAM RF: 0 furosemide 40 mg tablet See Rx Instructions .ROUTE .COMPLEX RF: 0 azithromycin 250 mg tablet 250 mg PO .COMPLEX 90 Days Qty: 45 RF: 3 tamsulosin 0.4 mg capsule 0.4 mg PO BID Qty: 180 RF: 3 nitroglycerin 0.4 mg Tablet, Sublingual 0.4 mg SUBLINGUAL Q5M PRN (Reason: Chest Pain) RF: 0 docusate sodium 100 mg Tablet 100 mg PO BID RF: 0 Tresiba FlexTouch U-200 200 unit/mL (3 mL) insulin pen 22 unit SUBCUT BEDTIME RF: 0 albuterol sulfate 1.25 mg/3 mL solution for nebulization 1.25 mg inhalation QID RF: 0 prednisone 2.5 mg tablet 2.5 mg PO EVERY OTHER DAY RF: 0 budesonide 0.25 mg/2 mL suspension for nebulization 0.25 mg inhalation BID RF: 0 albuterol sulfate 90 mcg/actuation HFA aerosol inhaler 2 puff inhalation QID PRN (Reason: Shortness Of Breath Or Wheezing) RF: 0 finasteride 5 mg tablet 5 mg PO DAILY RF: 0 Perforomist 20 mcg/2 mL solution for nebulization 2 ml inhalation Q12H RF: 0 Yupelri 175 mcg/3 mL solution for nebulization 175 mcg inhalation DAILY@12 RF: 0 latanoprost 0.005 % drops 1 drp ophthalmic (eye) BEDTIME RF: 0 atorvastatin 10 mg tablet 10 mg PO BEDTIME RF: 0 amiodarone 200 mg tablet 200 mg PO QAM RF: 0 clonidine HCl 0.2 mg tablet 0.2 mg PO TID RF: 0 olmesartan 20 mg tablet 10 mg PO QAM RF: 0 insulin lispro [Humalog KwikPen Insulin] 100 unit/mL insulin pen See Rx Instructions .ROUTE .COMPLEX RF: 0 Eliquis 5 mg tablet 5 mg PO BID RF: 0 metoprolol succinate 25 mg tablet extended release 24 hr 12.5 mg PO BEDTIME RF: 0 Discharge Orders: Discharge ED (Routine); Ordered 06/25/21 Ordered By: Vick Guerrero Referrals: Sandy Cason FNP [Primary Care Provider] - Clayton Andino MD [Physician] - 06/29/21 3:40 pm Discharge Diet: Usual diet Discharge Activity: Resume usual activity Patient Instructions: Epistaxis (ED) Activity Restrictions/Additional Instructions: Thank you for visiting the emergency department. You were seen and evaluated for epistaxis. Initial treatments were not effective so a Rhino Rocket was placed. You will be given a prescription for antibiotics to prevent infection associated with this. You need to follow-up with ENT, an appointment has been arranged, for reevaluation and packing removal. Please return to the emergency department for worsening nosebleed or anything else that you are concerned about and feel needs emergency department for evaluation. Coding Level of Care Code ED Repair Electric Motor Assembler for Owen Donahue
[2021-06-25] MEDS: hyDRALAzine 20 mg/mL INJ 1 mL 10 MG IVP ×2 (08:42→11:12)
[2021-06-25] MEDS: oxymetazoline 0.05% Nasal Spray 15 mL 2 SPRAY NOSTRIL-B (08:59)
[2021-06-25 09:24] LABS: Hematocrit 28.1 % (42.0-52.0); Hemoglobin 8.5 g/dL (11.7-16.6)
[2021-06-25 09:29] LABS: Glucose Point of Care 125 mg/dL (70-110)
[2021-06-25] MEDS: labetalol 5 mg/mL SDV 20mL 10 MG IVP (09:43)
--- NOTE | 2021-06-25 10:09 | PC.PHAR ---
pt states he takes care of his own medications-pt states he takes the medications entered- notes are made in the pharmacy comments
--- NOTE | 2021-06-25 10:40 | DCPLANNER ---
business analyst project manager was asked to call the office of Dr. Andino to see if patient could be seen on June 28. business analyst project manager called the ENT clinic, spoke with Mayuri, gave her patients information. A follow up appointment was scheduled for Tuesday, June 29, 2021 at 3:[address] Andino. business analyst project manager updated physician of the scheduled appointment. business analyst project manager put the appointment information on patients discharge paperwork.
== END 2021-06-25 12:04 | disposition home or self-care (01) ==
PROVIDERS: Emergency Provider Emergency Medicine; PCP Nurse Practitioner Family
DX: R04.0 Epistaxis (principal); I10 Essential (primary) hypertension; Z79.01 Long term (current) use of anticoagulants; Z79.82 Long term (current) use of aspirin; Z79.4 Long term (current) use of insulin; I25.10 Atherosclerotic heart disease of native coronary artery without angina pectoris; E11.9 Type 2 diabetes mellitus without complications; E78.5 Hyperlipidemia, unspecified; Z87.891 Personal history of nicotine dependence
CPT/HCPCS: 30901; 36416; 82962; 85014; 85018; 85025; 85610; 94640; 96374; 96375; 96376; 99283; 99284; J0360; J3490; J7611

== ENCOUNTER 2021-10-04 11:46 | Inpatient (IN) | payer MEDICARE, SELFPAY ==
[2021-10-04] VITALS (12 sets, daily range): BP systolic 142–165; BP diastolic 55–85; PULSE 60–86; RESP 16–22; TEMP 36.8–36.9; O2SAT 90–100; BMI 24.4; BMI 24.7
--- NOTE | 2021-10-04 11:49 | XR_ITS ---
WS: [id number] Portable AP upright chest, 10/04/2021 Clinical Data: dyspnea Comparison: Portable chest, 12/13/2019 Findings: There are patchy bilateral pulmonary opacities which could represent acute pneumonia. There is a moderate left pleural effusion. The heart size may be normal. Midline sternotomy sutures are pr esent. The aortic arch and descending thoracic aorta are tortuous. No nodules or masses are seen. The re is an orthopedic anchor in the right humeral head. XR/XR chest 1V portable [id number] Impression: 1. Patchy bilateral pulmonary opacities consistent with acute pneumonia. 2. Left pleural effusion. 3. Atherosclerosis.
--- NOTE | 2021-10-04 11:50 | ECG_ITS ---
[facility] Test Date: 2021-10-04 Pat Name: Ion Messina Department: Room: Gender: Male Art History Instructor: : 1935 Requested By: Dalton Pino Order Number: [id number] Олег MD: Sona Antonio M.D. Measurements Intervals [place] Rate: 58 P: -60 NV: 190 QRS: -30 QRSD: 121 T: 66 QT: 446 QTc: 441 Interpretive Statements ECTOPIC ATRIAL BRADYCARDIA BORDERLINE LEFT AXIS DEVIATION [QRS AXIS < -20] MODERATE INTRAVENTRICULAR CONDUCTION DELAY [110+ ms QRS DURATION] ABNORMAL RHYTHM ECG Compared to ECG 12/13/2019 19:59:31 Bradycardia, nonsinus now present Atrial flutter no longer present Left anterior fascicular block no longer present Electronically Signed On 10-04-2021 22:21:02 ASSIGNER by Sona Antonio M.D. [id number]
--- NOTE | 2021-10-04 12:04 | ED_ITS ---
HPI - General Adult General: Chief complaint: Shortness of Breath/Dyspnea Stated complaint: SOB W/EDEMA Time Seen by Provider: 10/04/21 11:49 History of Present Illness: HPI narrative: Patient is a 86 w/ hx of CHF, aortic regurgitation, DM, HTN, afib on amiodarone and metoprolol presenting to the ED for Dr. Stanley for possible volume overload/respiratory distress. Patient was seen and evaluated over telehealth earlier today and was found to have increased work of breathing. Patient told Saw for the last 2 weeks he has had increased exertional fatigue and decreased ability to perform activities. Earlier today, patient was also noted to have a heart rate in the 40s. EMS was alerted and patient was brought to the emergency room for evaluation. On arrival, patient tells me that she has been short of breath for the last 3- month. Patient denies any chest pain, nausea/vomiting, diarrhea/fever/chills, abdominal pain, melena hematochezia. Onset: chronic x 2 weeks Duration:ongoing Location:home Severity:moderate Review of Systems Narrative: Constitutional: No fever, no chills. HEENT: No vision changes CV: No chest pain, no palpitations PULM: no cough, +dyspnea. GI: No abdominal pain, no N/V/D. : No dysuria MSKEL: No muscle pain SKIN: No new rashes, no lesions. NEURO: No headache, no focal weakness. +leg swelling HEME: No visible bruises PSYCH: Normal mood PFSH ED PFSH: Medical History (Updated 10/04/21 @ 13:54 by Dalton Pino MD) Anticoagulation adequate with anticoagulant therapy Atrial fibrillation Rate controlled BPH loc w urin obs/LUTS CAD (coronary artery disease) Stable Diabetes mellitus Stable Gross hematuria Hyperlipidemia Urinary retention Surgical History Aortic valve replaced H/O heart artery stent H/O shoulder surgery Hx of cataract surgery bilateral S/P carpal tunnel release Family History Father , 82 CAD (coronary artery disease) Mother , 60's Epilepsia Social History Smoking and tobacco status: former smoker Quit status (tobacco): has quit using tobacco Year quit tobacco: 1993 - 2PPD x 45 Years Alcohol intake: never Lives independently: Yes Household members: spouse Housing: House Marital status: Current occupational status: retired History of recent travel: No Current gender identity: Male Physical Exam Narrative: EXAM NARRATIVE: Head: Atraumatic Eyes: PERRL, conjunctiva without injection ENT: Mucous membrane moist NECK: Supple, ROM intact LUNGS: +crackles throughout lung childress, on increased work of breathing CV: RRR ABDOMEN: Soft, nontender in all quadrants EXTREMITY: Normal ROM, 2+ edema in the lower extremities b/l SKIN: No rash or erythema NEURO: Awake and alert, no focal motor deficits PSYCH: Normal mood and affect Course Vital Signs: Vital signs: Vital Signs Pulse Rate 60 10/04/21 12:11 Respiratory Rate 18 10/04/21 12:11 Blood Pressure 162/55 10/04/21 12:11 Pulse Oximetry 94 10/04/21 12:11 MDM - General Adult MDM Narrative: Medical decision making narrative: [86]yo pt w/ hx of afib, HTN, aortic valve replacement, DM, CHF (EF of [55-60] from 01/18/2021) presenting to the ED with dyspnea and increased work of breathing concerning acute on chronic CHF exacerbation. Physical exam consistent signs of fluid overload including crackles bilaterally and LE swelling. Workup today: ECG, CBC, BMP, Troponin, BNP, CXR. Intervention: IV lasix after potassium check Based on history, exam and findings, presentation most consistent with acute on chronic heart failure. Low suspicion for PNA, ACS, tamponade, aortic dissection. EKG: No STEMI and no evidence of Brugada?s sign, delta wave, epsilon wave, significantly prolonged QTc, or malignant arrhythmia. Hemoglobin of 6.8 compared to baseline of 8.5-9.1 will need transfusion. BNP of 2K, troponin of 150 similar to baseline CXR: B/l patchy infiltrates with L pleural effusion [12;45pm] On reassessment, patient is stable and patient is mentating without issues. Given lasix 40mg x 1 in the ER with significant symptom improvement in dyspnea. No signs of increased work of breathing requiring BIPAP. Given the current presentation, I believe the patient would benefit from inpatient admission for continued diuresis and fluid removal. I have discussed a plan with a patient who agrees with inpatient admission. There is mention of possible pneumonia on the chest x-ray. However patient is afebrile, with normal white count. Symptom has been going on for the last 3 months, I do not believe that the findings on x-rays consistent with clinical pneumonia at this time. Patient received 1u of pRBC. Hemoocult positive on rectal exam. Dr. Hager will follow up patient. Troponin of 150, given concern of hemoocult stool and low H&H, will defer anticoagulation to the next team. Disposition: Admission Lab Data: Labs: Lab Results 10/04/21 10/04/21 10/04/21 13:12 13:12 13:12 WBC 7.2 10^3/uL 10^3/ uL (4.0-10.0) RBC 2.72 10^6/uL L 10 ^6/uL (4.1-5.3) Hgb 6.8 g/dL L g/dL (11.7-16.6) Hct 23.1 % L % (42.0-52.0) MCV 84.9 fl fl (80-94) MCH 25.0 pg L pg (28.0-34.0) MCHC 29.4 g/dL L g/dL (30.0-36.0) RDW 15.0 % % (12.1-15.1) Plt Count 378 10^3/cmm 10^3 /cmm (130-400) MPV 9.4 fL fL (7.4-10.4) Neut % (Auto) 73.8 % % Lymph % (Auto) 8.3 % % Hayes % (Auto) 9.4 % % Eos % (Auto) 7.6 % % Baso % (Auto) 0.6 % % Neut # (Auto) 5.31 10^3/uL 10^3 /uL (1.8-7.7) Lymph # (Auto) 0.6 10^3/uL L 10^ 3/uL (0.8-4.8) Hayes # (Auto) 0.7 10^3/uL 10^3/ uL (0.2-0.9) Eos # (Auto) 0.6 10^3/uL 10^3/ uL (0.0-0.8) Baso # (Auto) 0.0 10^3/uL 10^3/ uL (0.0-0.1) Nucleated RBC % (a uto) 0 % % Nucleated RBCs # 0.0 /100WBC /100W BC Sodium 142 mmol/L mmol/L (136-145) Potassium 4.4 mmol/L mmol/L (3.5-5.1) Chloride 100 mmol/L mmol/L (98-107) Carbon Dioxide 34 mmol/L H mmol/ L (22-29) Anion Gap 12.4 (5-19) BUN 24 mg/dL H mg/dL (8-23) Creatinine 0.9 mg/dL mg/dL (0.7-1.2) GFR Calculation Not Reportable Glucose 91 mg/dL mg/dL (65-115) Calculated Osmolal ity 298 mOsm/kg H mOs m/kg (285-295) Calcium 8.2 mg/dL L mg/dL (8.5-10.5) Troponin T Baselin e 152 ng/L H* ng/L (0-15) NT-Pro-B Natriuret Pep 2695 pg/mL H pg/m L (0-450) Imaging Data^: Other Imaging: Radiologist's impression: [address], [place] [address]PCjz ReportSigned Patient: Ion Messina #: [id number]: [id number]#:[id number]/Sex: 86 / MADM Date: 10/04/21[facility]Attending Dr: Ordering Provider/Ordering MD: Dalton Pino MD Date of Service: 10/04/21 Procedure(s): XR chest 1V portable [id number] Accession Number(s): [id number] Report Number: [id number] WS: [id number] Portable AP upright chest, 10/04/2021 Clinical Data: dyspnea Comparison: Portable chest, 12/13/2019 Findings: There are patchy bilateral pulmonary opacities which could represent acute pneumonia. There is a moderate left pleural effusion. The heart size may be normal. Midline sternotomy sutures are present. The aortic arch and descending thoracic aorta are tortuous. No nodules or masses are seen. There is an orthopedic anchor in the right humeral head. XR/XR chest 1V portable [id number] Impression: 1. Patchy bilateral pulmonary opacities consistent with acute pneumonia. 2. Left pleural effusion. 3. Atherosclerosis. Dictated By:Sandy Romeigned By:Sandy Romeigned Date/Time:10/04/21 1238DD/ 1236 Discharge Plan Discharge Patient Disposition: Admitted As Inpatient Clinical Impression: CHF exacerbation, Pleural effusion, Dyspnea, Anemia Condition: Stable Coding Level of Care Code ED Heavy Equipment Service Technician for Owen Donahue
[2021-10-04 13:24] LABS: Basophils % 0.6 %; Eosinophils # 0.6 10^3/uL (0.0-0.8); Eosinophils % 7.6 %; Hematocrit 23.1 % (42.0-52.0); Hemoglobin 6.8 g/dL (11.7-16.6); Lymphocytes # 0.6 10^3/uL (0.8-4.8); Lymphocytes % 8.3 %; Mean Corpuscular HGB Conc 29.4 g/dL (30.0-36.0); Mean Corpuscular Volume 84.9 fl (80-94); Mean Platelet Volume 9.4 fL (7.4-10.4); Monocytes # 0.7 10^3/uL (0.2-0.9); Monocytes % 9.4 %; Neutrophils # 5.31 10^3/uL (1.8-7.7); Neutrophils % 73.8 %; Nucleated Red Blood Cells % 0 %; Platelet Count 378 10^3/cmm (130-400); Red Blood Count 2.72 10^6/uL (4.1-5.3); White Blood Count 7.2 10^3/uL (4.0-10.0)
[2021-10-04 13:50] LABS: Troponin(5th) Baseline 152 ng/L (0-15)
--- NOTE | 2021-10-04 13:50 | ECG_ITS ---
[facility] Test Date: 2021-10-04 Pat Name: Ion Messina Department: Room: Gender: Male Admitting Counselor: : 1935 Requested By: Dalton Pino Order Number: [id number] Denney MD: Sona Antonio M.D. Measurements Intervals [place] Rate: 63 P: -79 [place]: 187 QRS: -25 QRSD: 120 T: 64 QT: 430 QTc: 442 Interpretive Statements ECTOPIC ATRIAL RHYTHM BORDERLINE LEFT AXIS DEVIATION [QRS AXIS < -20] MODERATE INTRAVENTRICULAR CONDUCTION DELAY [110+ ms QRS DURATION] Compared to ECG 10/04/2021 12:10:27 Ectopic atrial rhythm now present Bradycardia, nonsinus no longer present Electronically Signed On 10-04-2021 16:51:05 LINE LEADER by Sona Antonio M.D. [id number]
[2021-10-04 13:51] LABS: Blood Urea Nitrogen 24 mg/dL (8-23); Calcium 8.2 mg/dL (8.5-10.5); Carbon Dioxide 34 mmol/L (22-29); Chloride 100 mmol/L (98-107); Glucose 91 mg/dL (65-115); NT Pro B Type Natriuretic Pept 2695 pg/mL (0-450); Osmolality Calculated 298 mOsm/kg (285-295); Sodium 142 mmol/L (136-145)
[2021-10-04 13:58] LABS: Anion Gap 12.4 (5-19); Potassium 4.4 mmol/L (3.5-5.1)
--- NOTE | 2021-10-04 14:41 | PM.HP ---
Providers/Chief Complaint Primary Care Provider: TROY Barba Chief Complaint: SOB W/EDEMA History of Present Illness Ion Messina is a 86 year old male with a past medical history of a bioprosthetic aortic valve, history of diastolic CHF, atrial fibrillation on Eliquis 2.5 mg twice daily, CAD, CKD, centrilobular emphysema, COPD 8 L oxygen dependent, history of sinus bradycardia, history of epistaxis, history of insulin-dependent type 2 diabetes mellitus who presents to [facility] due to increased bilateral lower extremity edema, increased shortness of breath with minimal exertion and weakness. Patient tells me that recently has been doing experiencing increased shortness of breath, now with minimal exertion, he tells me that he can take hardly a few steps before he gets short of breath, he is also been experiencing increased lower extremity edema, he is on Lasix, he has been taking it as prescribed, denies any chest pain, no palpitations. Does report a nonproductive cough, has received both Covid vaccinations, no fevers, no known exposure to COVID-19, no known exposure to influenza. He also reports increased lower extremity edema, and fatigue, malaise. He does take Eliquis 2.5 mg twice daily, had a recent history of epistaxis, was placed back on Eliquis after his epistaxis has resolved. Denies any bloody or black stools. Denies any history of EGD or colonoscopy. Denies any history of requiring blood transfusion or history of bleeding In the emergency room he was found to have NSTEMI, troponins as high as 152, his baseline troponins are between 100-1 30, denies any chest pain, EKG shows no acute ST-T wave changes. His BNP is over 2000, bilateral lower extreme edema, was given Lasix His chest x-ray shows bilateral patchy infiltrates, concerning for pneumonia, no significant leukocytosis, inflammatory markers are pending His hemoglobin was found to be 6.8, is on Eliquis, his Hemoccult was reported to be positive by ER physician, is he receiving 1 unit of blood, general surgery has been called Hospitalist team was called for concerns for fluid overload, CHF exacerbation. Review of Systems Const: Denies: fever(s) Eyes: Denies: change in vision ENMT: Denies: odynophagia or nasal discharge Card: Denies: chest pain Resp: Reports: dyspnea and non-productive cough GI: Denies: abdominal pain, nausea, vomiting, hematemesis, hematochezia or melena : Denies: flank pain or difficulty urinating Musc: Denies: back pain Skin/Breast: Denies: rash Neuro: Denies: headache(s) Balaji/Lymph: Denies: easy bruising Medications/Allergies Home Medications Medication Instructions Recorded Confirmed Last Taken Type Eliquis 5 mg PO BID 12/01/19 10/04/21 10/04/21 History amiodarone 200 mg PO QAM 12/01/19 10/04/21 10/04/21 History atorvastatin 10 mg PO BEDTIME 12/01/19 10/04/21 10/03/21 History clonidine HCl 0.2 mg PO TID 12/01/19 10/04/21 10/04/21 History insulin lispro [Humalog KwikPen See Rx Instructions .ROUTE .COMPLEX 12/01/19 10/04/21 06/25/21 05:30 History Insulin] 4 units latanoprost 1 drp OPHTHALMIC (EYE) BEDTIME 12/01/19 10/04/21 10/03/21 History olmesartan 10 mg PO QAM 12/01/19 10/04/21 10/04/21 History docusate sodium 100 mg PO BID 12/13/19 10/04/21 10/04/21 History nitroglycerin 0.4 mg SUBLINGUAL Q5M PRN 12/13/19 10/04/21 Unknown History aspirin 81 mg tablet,delayed 81 mg PO QAM 03/30/20 10/04/21 10/04/21 History release tamsulosin 0.4 mg capsule 0.4 mg PO BID #180 cap 12/09/20 10/04/21 10/04/21 Rx azithromycin 250 mg tablet 250 mg PO .COMPLEX 90 Days #45 tab 03/02/21 10/04/21 10/04/21 Rx furosemide 40 mg tablet See Rx Instructions .ROUTE 05/25/21 10/04/21 10/04/21 History .COMPLEX tab budesonide 0.25 mg INHALATION BID 06/25/21 10/04/21 10/04/21 History formoterol fumarate [Perforomist] 2 ml INHALATION Q12H 06/25/21 10/04/21 10/04/21 History insulin degludec [Tresiba 22 unit SUBCUT BEDTIME 06/25/21 10/04/21 10/03/21 History FlexTouch U-200] prednisone 2.5 mg PO EVERY OTHER DAY 06/25/21 10/04/21 10/03/21 History revefenacin [Yupelri] 175 mcg INHALATION DAILY@12 06/25/21 10/04/21 10/04/21 History metoprolol succinate 25 mg 25 mg PO BEDTIME #90 tab 07/14/21 10/04/21 10/03/21 Rx tablet,extended release 24 hr amlodipine 10 mg tablet 10 mg PO DAILY #90 tab 08/05/21 10/04/21 10/04/21 Rx finasteride 5 mg tablet 5 mg PO DAILY #90 tab 09/10/21 10/04/21 10/04/21 Rx albuterol sulfate 2.5 mg INHALATION Q4H PRN #180 ml 09/13/21 10/04/21 Unknown Rx albuterol sulfate 90 mcg/actuation 2 puff INHALATION QID PRN #8.5 g 09/17/21 10/04/21 Unknown Rx aerosol inhaler Allergies Allergy/AdvReac Type Severity Reaction Status Date / Time ezetimibe [From Vytorin] Allergy ADR-Cramping Verified 10/04/21 10:28 of the Muscles Penicillins Allergy ALGY-Rash Verified 10/04/21 10:28 simvastatin [From Vytorin] Allergy ADR-Cramping Verified 10/04/21 10:28 of the Muscles PFSH Acute PFSH: Medical History (Updated 10/04/21 @ 14:47 by Chapito Whitlock MD) Anticoagulation adequate with anticoagulant therapy Atrial fibrillation Rate controlled BPH loc w urin obs/LUTS CAD (coronary artery disease) Stable Diabetes mellitus Stable Gross hematuria Hyperlipidemia Urinary retention Surgical History Aortic valve replaced H/O heart artery stent H/O shoulder surgery Hx of cataract surgery bilateral S/P carpal tunnel release Family History Father , 82 CAD (coronary artery disease) Mother , 60's Epilepsia Social History Smoking and tobacco status: former smoker Quit status (tobacco): has quit using tobacco Year quit tobacco: 1993 - 2PPD x 45 Years Alcohol intake: never Lives independently: Yes Household members: spouse Housing: House Marital status: Current occupational status: retired History of recent travel: No Current gender identity: Male Vitals/I&O/Wt Last Vital Signs Pulse 60 10/04/21 12:11 Resp 18 10/04/21 12:11 BP 162/55 10/04/21 12:11 Pulse Ox 94 10/04/21 12:11 Weight last 48 hrs Weight 79.379 kg Physical Exam Const: COMMON NORMALS: no acute distress and patient oriented x3 GENERAL APPEARANCE: cooperative and comfortable HENMT: COMMON NORMALS: normocephalic HEAD & SCALP: normocephalic Eye: COMMON NORMALS: Equal, round and reactive pupils present and EOMs intact bilaterally GENERAL EYE: appearance normal, both eyes and all related structures PUPIL: Yes Equal, round and reactive pupils present Neck/C-Spine: COMMON NORMALS: full ROM and no lymphadenopathy THYROID: Thyroid normal Lymph: LYMPHATIC: no lymphadenopathy noted Resp: COMMON NORMALS: normal respiratory effort, No retractions, No use of accessory muscles and clear to auscultation bilaterally AUSCULTATION: clear to auscultation bilaterally Cardio: COMMON NORMALS: regular rate, regular rhythm, S1 normal heart sound present, S2 normal heart sound present, No gallops present (Cardio), No clicks present (Cardio) and No murmurs present (Cardio) RATE: regular rate RHYTHM: regular rhythm HEART SOUNDS: S1 normal heart sound present and S2 normal heart sound present GI: COMMON NORMALS: Normal to inspection, nondistended, normoactive bowel sounds present, Soft to palpation, non-tender and No hepatosplenomegaly present PALPATION: Yes Soft to palpation and Yes No hepatosplenomegaly present Extremity: COMMON NORMALS: normal to inspection and full ROM NARRATIVE EXTREMITY EXAM: 2+ pitting edema bilaterally Neuro: COMMON NORMALS: patient oriented x3, CN's II-XII intact bilaterally, moves all extremities and no focal motor deficits Psych: COMMON NORMALS: mental status grossly normal, Normal thought process present and cooperative THOUGHT PROCESS: Normal thought process present Data : 10/04/21 13:12 10/04/21 13:12 A&P Assessment and plan (1) Diastolic CHF, acute on chronic: Acute on chronic diastolic CHF exacerbation -Fluid restrictions 1200 cc -Lasix 40 mg IV twice daily -We will consider metolazone therapy -Cardiac echocardiogram -Monitor creatinine, monitor urine output -Full code -DVT prophylaxis, SCDs, anticoagulation currently contraindicated given GI bleed concerns Left pleural effusion, continue diuresis, hold Eliquis, consider thoracocentesis NSTEMI -Initial troponin I 52, EKG no acute ST-T wave changes, no chest pain complaints -Serial EKGs, serial troponins -Continue aspirin, statin -Telemetry monitoring -Anticoagulation currently on hold due to anemia, concerns for GI bleed -Elevated troponin likely multifactorial from diastolic CHF and anemia, however cannot rule out underlying cardiac etiology GI bleed -Hemoglobin 6.8 -Is on Eliquis 2.5 mg twice daily for atrial fibrillation -Hemoccult was positive in the emergency room -No hemodynamic compromise -Hold Eliquis -Will receive 1 unit PRBC -Posttransfusion H&H -Given cardiac history, maintain hemoglobin greater than 8 -Avoid fluid overload, Lasix therapy with blood -Protonix 40 IV twice daily, Carafate -Serum iron studies -Monitor hemodynamics closely -General surgery has been consulted Bilateral patchy infiltrates on chest x-ray, concerning for pneumonia -No WBC, pro-Francis, CRP pending -Follow blood cultures, sputum cultures, urine bacterial antigens -Likely fluid overload, but will cover for pneumonia Rocephin and azithromycin de-escalate in the next 24 to 48 hours COPD, not in exacerbation currently Paroxysmal atrial fibrillation, currently rhythm controlled, out of A. fib, continue amiodarone Type 2 diabetes mellitus, -Hold home Tresiba, Lantus 10 units at bedtime -Low-dose sliding scale Status: Acute (2) Pleural effusion: Status: Acute (3) Anemia: Status: Acute (4) Anticoagulation adequate with anticoagulant therapy: Status: Acute (5) COPD (chronic obstructive pulmonary disease): Status: Acute (6) NSTEMI (non-ST elevated myocardial infarction): Status: Acute (7) COPD with emphysema: Status: Acute (8) Hyperlipidemia: Status: Acute (9) Atrial fibrillation: Status: Acute (10) CAD (coronary artery disease): Status: Acute (11) Hyperlipidemia: Status: Acute (12) Diabetes mellitus: Status: Acute Attestations Medical Necessity Statement*: Patient requires hospitalization for acute on chronic diastolic CHF exacerbation, NSTEMI, GI bleed, requiring inpatient admission, greater than 2 midnights Coding Level of Care Code Acute Physical Laboratory Assistant for Owen Fwchristine Diagnoses Diastolic CHF, acute on chronic I50.33 Pleural effusion J90 Anemia D64.9 Anticoagulation adequate with anticoagulant therapy Z79.01 COPD (chronic obstructive pulmonary disease) J44.9 NSTEMI (non-ST elevated myocardial infarction) I21.4 COPD with emphysema J43.9 Hyperlipidemia E78.5 Atrial fibrillation I48.91 CAD (coronary artery disease) I25.10 Hyperlipidemia E78.5 Diabetes mellitus E11.9
[2021-10-04 15:05] LABS: C Reactive Protein 15.6 mg/L (0.0-4.9); Magnesium 2.1 mg/dL (1.7-2.3); Phosphorus 3.1 mg/dL (2.5-4.5)
[2021-10-04 15:12] LABS: Procalcitonin 0.06 ng/mL (0-0.5)
[2021-10-04 15:15] LABS: Adenovirus Not Detected (NOT DETECT); Chlamydia Pneumoniae Not Detected (NOT DETECT); Coronavirus 229E,HKU1,NL63,OC4 Not Detected (NOT DETECT); Human Metapneumovirus Not Detected (NOT DETECT); Human Rhinovirus/Enterovirus Not Detected (NOT DETECT); Influenza A Not Detected (NOT DETECT); Influenza A H1 Not Detected (NOT DETECT); Influenza A H1-2009 Not Detected (NOT DETECT); Influenza A H3 Not Detected (NOT DETECT); Influenza B Not Detected (NOT DETECT); Mycoplasma Pneumoniae Not Detected (NOT DETECT); Parainfluenza Virus Type 1 Not Detected (NOT DETECT); Parainfluenza Virus Type 2 Not Detected (NOT DETECT); Parainfluenza Virus Type 3 Not Detected (NOT DETECT); Parainfluenza Virus Type 4 Not Detected (NOT DETECT); Respiratory Syncytial Virus A Not Detected (NOT DETECT); Respiratory Syncytial Virus B Not Detected (NOT DETECT); SARS-COV-2 Not Detected (NOT DETECT)
[2021-10-04 15:37] LABS: Lactic Sepsis W/Reflex 0.7 mmol/L (0.5-2.2)
[2021-10-04 15:46] LABS: INR 1.11 (0.8-1.2); Troponin 5 2HR 143.7 ng/L (0-15); Troponin 5 2HR Delta -8.3 ABS# (0-10)
[2021-10-04 15:54] LABS: Ferritin 16 ng/mL (30-400); Iron 13 ug/dL (59-158); Percent Saturation 4.1 % (20-50); Total Iron Binding Capacity 317 mcg/dl; Unsaturated Iron Binding 304 ug/dL (112-347)
[2021-10-04] MEDS: aspirin 325 mg Tablet PO (16:14)
[2021-10-04] MEDS: FUROsemide 10 mg/mL SDV 4mL 40 MG IVP (16:19)
--- NOTE | 2021-10-04 17:19 | PM.CONSULT ---
Providers/Reason For Consult Consulting Physician/Specialty*: General surgery Reason for Consult*: GI bleed Primary Care Provider: TROY Barba History of Present Illness History of Present Illness Ion Messina is a 86 year old male who presented to the ER for difficulty breathing. He had an INR of 15 several months ago that resulted in epistaxis. He has since been put on Eliquis. He has afib and had an aortic valve (bovine) replacement. He was found to have a hgb of 6.8 in the ER along with a positive hemoccult. This general surgery was consulted. He has never had a colonoscopy. He denies any abdominal pain or other pain. His last BM was yesterday and was reportedly normal. He denies any hematochezia or melena. Denies fever/chills. Review of Systems General: Reports: 10 or more systems reviewed and unremarkable except in HPI and below Meds/Allergies Home Medications and Allergies Home Medications Medication Instructions Recorded Confirmed Last Taken Type Eliquis 5 mg PO BID 12/01/19 10/04/21 10/04/21 History amiodarone 200 mg PO QAM 12/01/19 10/04/21 10/04/21 History atorvastatin 10 mg PO BEDTIME 12/01/19 10/04/21 10/03/21 History clonidine HCl 0.2 mg PO TID 12/01/19 10/04/21 10/04/21 History insulin lispro [Humalog KwikPen See Rx Instructions .ROUTE .COMPLEX 12/01/19 10/04/21 06/25/21 05:30 History Insulin] 4 units latanoprost 1 drp OPHTHALMIC (EYE) BEDTIME 12/01/19 10/04/21 10/03/21 History olmesartan 10 mg PO QAM 12/01/19 10/04/21 10/04/21 History docusate sodium 100 mg PO BID 12/13/19 10/04/21 10/04/21 History nitroglycerin 0.4 mg SUBLINGUAL Q5M PRN 12/13/19 10/04/21 Unknown History aspirin 81 mg tablet,delayed 81 mg PO QAM 03/30/20 10/04/21 10/04/21 History release tamsulosin 0.4 mg capsule 0.4 mg PO BID #180 cap 12/09/20 10/04/21 10/04/21 Rx azithromycin 250 mg tablet 250 mg PO .COMPLEX 90 Days #45 tab 03/02/21 10/04/21 10/04/21 Rx furosemide 40 mg tablet See Rx Instructions .ROUTE 05/25/21 10/04/21 10/04/21 History .COMPLEX tab budesonide 0.25 mg INHALATION BID 06/25/21 10/04/21 10/04/21 History formoterol fumarate [Perforomist] 2 ml INHALATION Q12H 06/25/21 10/04/21 10/04/21 History insulin degludec [Tresiba 22 unit SUBCUT BEDTIME 06/25/21 10/04/21 10/03/21 History FlexTouch U-200] prednisone 2.5 mg PO EVERY OTHER DAY 06/25/21 10/04/21 10/03/21 History revefenacin [Yupelri] 175 mcg INHALATION DAILY@12 06/25/21 10/04/21 10/04/21 History metoprolol succinate 25 mg 25 mg PO BEDTIME #90 tab 07/14/21 10/04/21 10/03/21 Rx tablet,extended release 24 hr amlodipine 10 mg tablet 10 mg PO DAILY #90 tab 08/05/21 10/04/21 10/04/21 Rx finasteride 5 mg tablet 5 mg PO DAILY #90 tab 09/10/21 10/04/21 10/04/21 Rx albuterol sulfate 2.5 mg INHALATION Q4H PRN #180 ml 09/13/21 10/04/21 Unknown Rx albuterol sulfate 90 mcg/actuation 2 puff INHALATION QID PRN #8.5 g 09/17/21 10/04/21 Unknown Rx aerosol inhaler Allergies Allergy/AdvReac Type Severity Reaction Status Date / Time ezetimibe [From Vytorin] Allergy ADR-Cramping Verified 10/04/21 10:28 of the Muscles Penicillins Allergy ALGY-Rash Verified 10/04/21 10:28 simvastatin [From Vytorin] Allergy ADR-Cramping Verified 10/04/21 10:28 of the Muscles PFSH Acute PFSH: Medical History Anticoagulation adequate with anticoagulant therapy Atrial fibrillation Rate controlled BPH loc w urin obs/LUTS CAD (coronary artery disease) Stable Diabetes mellitus Stable Gross hematuria Hyperlipidemia Urinary retention Surgical History Aortic valve replaced H/O heart artery stent H/O shoulder surgery Hx of cataract surgery bilateral S/P carpal tunnel release Family History Father , 82 CAD (coronary artery disease) Mother , 60's Epilepsia Social History Smoking and tobacco status: former smoker Quit status (tobacco): has quit using tobacco Year quit tobacco: 1993 - 2PPD x 45 Years Alcohol intake: never Lives independently: Yes Household members: spouse Housing: House Marital status: Current occupational status: retired History of recent travel: No Current gender identity: Male Vitals/I&O/Wt Last Vital Signs Temp 98.4 F 10/04/21 16:54 Pulse 62 10/04/21 16:54 Resp 22 H 10/04/21 16:54 BP 162/67 10/04/21 16:54 Pulse Ox 100 10/04/21 16:54 10/04/21 10/04/21 10/04/21 06:59 14:59 22:59 Intake Total 0 / 0 Balance 0 / 0 Weight last 48 hrs Weight 175 lb Physical Exam Const: COMMON NORMALS: average body habitus and patient oriented x3 HENMT: COMMON NORMALS: normocephalic and atraumatic HEAD & SCALP: normocephalic and atraumatic Eye: COMMON NORMALS: Equal, round and reactive pupils present and EOMs intact bilaterally PUPIL: Yes Equal, round and reactive pupils present Chest: COMMONS NORMALS: normal inspection of the chest and normal palpation of entire chest wall Resp: COMMON NORMALS: No retractions and No use of accessory muscles EFFORT & INSPECTION: Yes able to speak in complete sentences Cardio: COMMON NORMALS: regular rhythm RHYTHM: regular rhythm OTHER: tachycardic GI: OTHER: S, NT, ND, no guarding/rebound/masses Extremity: COMMON NORMALS: normal to inspection and full ROM Neuro: COMMON NORMALS: patient oriented x3, CN's II-XII intact bilaterally and no focal motor deficits Psych: COMMON NORMALS: mental status grossly normal and Normal thought process present THOUGHT PROCESS: Normal thought process present Data Micro: Micro: Microbiology 10/04/21 15:06 Blood Culture - Pr eliminary Blood SPECIMEN BHUMI MAYE 10/04/21 15:06 Blood Culture - Pr eliminary Blood SPECIMEN BHUMI VILLAVICENCIO A&P Assessment and plan (1) Anemia: heme positive stool in ER patient being trasfused Also found to have NSTEMI [place] NPO will re-evaluate tomorrow for potential EGD on Monday vs possible outpatient EGD Thank you for this consultation Status: Acute Coding Level of Care Code Acute Wind Commissioning Technician for Chg Fwd Diagnoses Anemia D64.9
--- NOTE | 2021-10-04 17:50 | ECG_ITS ---
[facility] Test Date: 2021-10-04 Pat Name: Ion Messina Department: Room: 256 Gender: Male Child Care Aide: : 1935 Requested By: Dalton Pino Order Number: [id number] Олег MD: Sona Antonio M.D. Measurements Intervals [place] Rate: 62 P: -70 WV: 200 QRS: -21 QRSD: 126 T: 64 QT: 436 QTc: 446 Interpretive Statements ECTOPIC ATRIAL RHYTHM BORDERLINE LEFT AXIS DEVIATION [QRS AXIS < -20] MODERATE INTRAVENTRICULAR CONDUCTION DELAY [110+ ms QRS DURATION] ABNORMAL RHYTHM ECG Compared to ECG 10/04/2021 14:29:01 No significant changes Electronically Signed On 10-04-2021 22:32:09 WEB DEVELOPMENT MANAGER by Sona Antonio M.D. [id number]
[2021-10-04] MEDS: ipratropium-albuterol 3 mL Neb INHALATION ×3 (18:31→23:36)
[2021-10-04] MEDS: tamsulosin 0.4 mg Capsule PO (18:42)
[2021-10-04] MEDS: sucralfate 1 gm Tablet PO (18:42)
[2021-10-04 18:49] LABS: Glucose Point of Care 99 mg/dL (70-110)
[2021-10-04] MEDS: cefTRIAXone 1,000 MG in sodium chloride 0.9% (plus) 50 ML 100 MG IV (20:10)
[2021-10-04] MEDS: atorvastatin 40 mg Tablet 10 MG PO (20:25)
[2021-10-04] MEDS: metoprolol succinate ER (24 HR) 25 mg Tablet PO (20:25)
[2021-10-04] MEDS: pantoprazole 40 mg SDV IVP (20:25)
[2021-10-04] MEDS: cloNIDine 0.1 mg Tablet 0.2 MG PO (20:31)
[2021-10-04 20:37] LABS: Glucose Point of Care 86 mg/dL (70-110)
[2021-10-04] MEDS: azithromycin 500 MG in sodium chloride 0.9% 250 ML 250 MG IV (20:38)
[2021-10-04 21:12] LABS: Hematocrit 25.8 % (42.0-52.0); Hemoglobin 7.8 g/dL (11.7-16.6)
[2021-10-04 21:40] LABS: Troponin 5 6HR Delta 10.6 ng/L (0-12)
[2021-10-04 21:48] LABS: Troponin 5 6HR 162.6 ng/L (0-15)
[2021-10-04 21:49] LABS: Basophils # 0.1 10^3/uL (0.0-0.1); Basophils % 0.7 %; Eosinophils # 0.4 10^3/uL (0.0-0.8); Eosinophils % 5.8 %; Hematocrit 25.5 % (42.0-52.0); Hemoglobin 7.7 g/dL (11.7-16.6); Lymphocytes # 0.8 10^3/uL (0.8-4.8); Mean Corpuscular HGB Conc 30.2 g/dL (30.0-36.0); Mean Corpuscular Hemoglobin 25.8 pg (28.0-34.0); Mean Corpuscular Volume 85.3 fl (80-94); Mean Platelet Volume 9.4 fL (7.4-10.4); Monocytes # 0.7 10^3/uL (0.2-0.9); Monocytes % 9.6 %; Neutrophils # 5.12 10^3/uL (1.8-7.7); Neutrophils % 72.6 %; Nucleated Red Blood Cells % 0 %; Platelet Count 393 10^3/cmm (130-400); Red Blood Count 2.99 10^6/uL (4.1-5.3); Red Cell Distribution Width 14.6 % (12.1-15.1); White Blood Count 7.1 10^3/uL (4.0-10.0)
[2021-10-04] MEDS: iron sucrose 200 MG in sodium chloride 0.9% (100 ml) 100 ML 220 MG IV (22:00)
[2021-10-05] VITALS (23 sets, daily range): BP systolic 130–181; BP diastolic 50–71; PULSE 58–74; RESP 16–24; TEMP 36.8–37.4; O2SAT 86–94
--- NOTE | 2021-10-05 00:15 | PC.NURSE ---
i reported low pulse 58 to nurse
[2021-10-05 01:30] LABS: Glucose Point of Care 47 mg/dL (70-110)
[2021-10-05] MEDS: dextrose 5 % 500 ML 100 ML IV (01:44)
[2021-10-05] MEDS: dextrose 50% syringe 50 mL 25 ML IVP (01:44)
[2021-10-05 02:02] LABS: Glucose Point of Care 179 mg/dL (70-110)
--- NOTE | 2021-10-05 02:03 | PC.NURSE ---
Pt pushed his call light at approximately 0125 and asked if his BS could be checked, BUTCHER FISH went to his room and checked his BS and noted it was 47 this was 0129, this was reported to this nurse and per protocol this nurse gave D50 and hung a bag of D5 running at 100, this nurse rechecked BS at 0159 and it was 147, pt reported that he was starting to feel better.
[2021-10-05 03:25] LABS: Glucose Point of Care 154 mg/dL (70-110)
[2021-10-05] MEDS: ipratropium-albuterol 3 mL Neb INHALATION ×5 (03:30→20:14)
[2021-10-05] MEDS: FUROsemide 10 mg/mL SDV 4mL 40 MG IVP (03:39)
--- NOTE | 2021-10-05 03:51 | PC.NURSE ---
This nurse messaged Dr. Herrera at 2156 regarding an elevated 6hr toponin, no orders received. This nurse called Dr. Herrera at 0325 d/t the patients O2 sats dropping and him sounding wet per respiratory, received n/o to give the scheduled 40mg IVP lasix now.
[2021-10-05 05:34] LABS: Basophils % 0.4 %; Eosinophils # 0.4 10^3/uL (0.0-0.8); Eosinophils % 4.7 %; Hematocrit 26.1 % (42.0-52.0); Hemoglobin 7.8 g/dL (11.7-16.6); Lymphocytes # 0.5 10^3/uL (0.8-4.8); Lymphocytes % 6.3 %; Mean Corpuscular HGB Conc 29.9 g/dL (30.0-36.0); Mean Corpuscular Hemoglobin 25.7 pg (28.0-34.0); Mean Corpuscular Volume 85.9 fl (80-94); Mean Platelet Volume 9.5 fL (7.4-10.4); Monocytes # 0.7 10^3/uL (0.2-0.9); Monocytes % 8.4 %; Neutrophils # 6.85 10^3/uL (1.8-7.7); Nucleated Red Blood Cells % 0 %; Platelet Count 397 10^3/cmm (130-400); Red Blood Count 3.04 10^6/uL (4.1-5.3); Red Cell Distribution Width 14.6 % (12.1-15.1); White Blood Count 8.6 10^3/uL (4.0-10.0)
[2021-10-05 06:07] LABS: Alanine Aminotransferase 10 U/L (0-41); Albumin Level 3.1 g/dL (3.5-5.2); Alkaline Phosphatase 112 IU/L (40-130); Anion Gap 12.2 (5-19); Aspartate Amino Transferase 16 U/L (0-40); Blood Urea Nitrogen 20 mg/dL (8-23); Calcium 7.7 mg/dL (8.5-10.5); Carbon Dioxide 36 mmol/L (22-29); Chloride 101 mmol/L (98-107); Glucose 118 mg/dL (65-115); Osmolality Calculated 304 mOsm/kg (285-295); Potassium 4.2 mmol/L (3.5-5.1); Sodium 145 mmol/L (136-145); Total Bilirubin 0.3 mg/dL (0.15-1.2); Total Protein 6.1 g/dL (6.6-8.7)
[2021-10-05 06:17] LABS: NT Pro B Type Natriuretic Pept 2933 pg/mL (0-450)
[2021-10-05] MEDS: amiodarone 200 mg Tablet PO (06:19)
[2021-10-05 06:55] LABS: Glucose Point of Care 126 mg/dL (70-110)
[2021-10-05 07:27] LABS: Phosphorus 2.8 mg/dL (2.5-4.5)
[2021-10-05 07:59] LABS: Glucose Point of Care 113 mg/dL (70-110)
[2021-10-05] MEDS: pantoprazole 40 mg SDV IVP ×2 (09:18→20:02)
[2021-10-05] MEDS: bumetanide 0.25 mg/mL SDV 4 mL 1 MG IVP (09:22)
[2021-10-05] MEDS: metOLazone 5 MG Tablet 10 MG PO (09:26)
[2021-10-05] MEDS: cloNIDine 0.1 mg Tablet 0.2 MG PO ×3 (09:26→20:58)
[2021-10-05] MEDS: finasteride 5 mg Tablet PO (09:26)
[2021-10-05] MEDS: tamsulosin 0.4 mg Capsule PO ×2 (09:27→17:49)
[2021-10-05 09:37] LABS: Glucose Point of Care 128 mg/dL (70-110)
--- NOTE | 2021-10-05 09:38 | PC.NURSE ---
Per Dr. Whitlock, hold sliding scale insulin unless blood sugar is over 200, keep Npo status and keep fluids running at 50 mL/hr.
[2021-10-05 11:57] LABS: Glucose Point of Care 121 mg/dL (70-110)
[2021-10-05] MEDS: sodium chloride 0.9% 100 mL Bag 50 ML IV (13:34)
[2021-10-05 14:46] LABS: Glucose Point of Care 270 mg/dL (70-110)
--- NOTE | 2021-10-05 14:56 | PM.PN ---
Subjective Subjective: Interval history: Patient denies any abdominal pain, nausea, vomiting, no evidence of hematemesis, melena or hematochezia Vitals/I&O/Wt Last Vital Signs Temp 99.2 F 10/10/21 11:28 Pulse 65 10/10/21 14:00 Resp 22 H 10/10/21 12:19 BP 112/45 10/10/21 11:28 Pulse Ox 91 10/10/21 12:19 10/09/21 10/10/21 10/10/21 22:59 06:59 14:59 Intake Total 890 / 2220 370 / 2220 Output Total 1125 / 2250 1125 / 2250 375 / 375 Balance -235 / -30 -755 / -30 -375 / -375 Physical Exam Narrative: EXAM NARRATIVE: Abdomen: Soft, nontender, nondistended Urinary Catheter Management^: [place]: Cath Placed During This Visit: yes Reason for Continuing Indwelling Catheter: Accurate Measurement of Urinary Output in Critically Ill Patients Urinary Catheter Date of Insertion: 10/04/21 Urinary Catheter Time of Insertion: 22:00 Data : 10/10/21 03:58 10/10/21 03:58 Micro: Microbiology 10/07/21 14:15 Gram Stain - Final Pleural Fluid Body Fluid Culture - Final 10/07/21 14:15 Mycobacterial Smear - Preliminary Body Fluids - Pleura 10/04/21 15:06 Blood Culture - Final Blood NO GROWTH AFTER 5 DAYS 10/04/21 15:06 Blood Culture - Final Blood NO GROWTH AFTER 5 DAYS A&P Assessment and plan (1) Anemia: 85-year-old male, anemic noted to have heme positive stools in the ER who also has a non-STEMI Hold eliquis Discussed with the patient's family and given his comorbidities and lack of evidence of significant GI bleed we will hold off on any surgical intervention at this point Status: Acute Attestations Medical Necessity Statement*: As per primary Coding Level of Care Code Acute Civil Engineer In Training for Owen Donahue Diagnoses Anemia D64.9
[2021-10-05 17:00] LABS: Glucose Point of Care 280 mg/dL (70-110)
--- NOTE | 2021-10-05 17:45 | P.PN_ITS ---
Subjective Subjective: Interval history: Patient was seen this morning, he had episodes of hypoglycemia overnight, currently on D5 normal saline, family is at bedside, alert oriented x3, receiving a breathing treatment, he is asking me when will he be able to eat, he tells me that his swelling has significantly improved Vitals/I&O/Wt Last Vital Signs Temp 99.1 F 10/05/21 16:00 Pulse 73 10/05/21 16:00 Resp 16 10/05/21 16:00 BP 162/55 10/05/21 16:00 Pulse Ox 89 L 10/05/21 16:00 10/05/21 10/05/21 10/05/21 06:59 14:59 22:59 Intake Total 500 / 500 Output Total 800 / 900 600 / 600 Balance -800 / 140 500 / 500 -600 / -100 Weight last 48 hrs Weight 80.541 kg Weight 79.379 kg Physical Exam Const: COMMON NORMALS: no acute distress and patient oriented x3 Resp: COMMON NORMALS: normal respiratory effort, No retractions, No use of accessory muscles and clear to auscultation bilaterally AUSCULTATION: clear to auscultation bilaterally Cardio: COMMON NORMALS: regular rate, regular rhythm, S1 normal heart sound present and S2 normal heart sound present RATE: regular rate RHYTHM: regular rhythm HEART SOUNDS: S1 normal heart sound present and S2 normal heart sound present GI: COMMON NORMALS: Normal to inspection, nondistended, normoactive bowel sounds present, Soft to palpation, non-tender and No hepatosplenomegaly present PALPATION: Yes Soft to palpation and Yes No hepatosplenomegaly present Extremity: NARRATIVE EXTREMITY EXAM: 1+ pitting edema bilateral lower extremities Neuro: COMMON NORMALS: patient oriented x3 Psych: COMMON NORMALS: mental status grossly normal Urinary Catheter Management^: Tinajero: Cath Placed During This Visit: yes Reason for Continuing Indwelling Catheter: Acute Urinary Retention or Obst ruction Urinary Catheter Date of Insertion: 10/04/21 Urinary Catheter Time of Insertion: 22:00 Data : 10/05/21 05:05 10/05/21 05:05 Micro: Microbiology 10/04/21 15:06 Blood Culture - Preliminary Blood NEGATIVE TO DATE 10/04/21 15:06 Blood Culture - Preliminary Blood NEGATIVE TO DATE 10/04/21 16:25 Bacterial Antigens - Final Urine,Clean Catch 10/04/21 16:25 Legionella Urinary Antigen - Final Urine Catheterized A&P Assessment and plan (1) Diastolic CHF, acute on chronic: Acute on chronic diastolic CHF exacerbation -Fluid restrictions 1200 cc -Bumex 1 mg IV twice daily -1 dose metolazone -Cardiac echocardiogram pending -Monitor creatinine, monitor urine output -Full code -DVT prophylaxis, SCDs, anticoagulation currently contraindicated given GI bleed concerns Left pleural effusion, continue diuresis, hold Eliquis, consider thoracocentesis NSTEMI -Initial troponin I 52, EKG no acute ST-T wave changes, no chest pain complaints -Serial EKGs, serial troponins -Continue aspirin, statin -Telemetry monitoring -Anticoagulation currently on hold due to anemia, concerns for GI bleed -Elevated troponin likely multifactorial from diastolic CHF and anemia, however cannot rule out underlying cardiac etiology GI bleed -Hemoglobin 7.8 -Is on Eliquis 2.5 mg twice daily for atrial fibrillation -Hemoccult was positive in the emergency room -No hemodynamic compromise -Hold Eliquis -s/p 1 unit prbc -Given cardiac history, maintain hemoglobin greater than 8 -Avoid fluid overload, Lasix therapy with blood -Protonix 40 IV twice daily, Carafate -Serum iron studies, show iron deficiency anemia, will give the IV iron -Monitor hemodynamics closely -General surgery has been consulted Bilateral patchy infiltrates on chest x-ray, concerning for pneumonia -No WBC, -Follow blood cultures, sputum cultures, urine bacterial antigens -Likely fluid overload, but will cover for pneumonia Rocephin and azithromycin de-escalate in the next 24 to 48 hours COPD, not in exacerbation currently Paroxysmal atrial fibrillation, currently rhythm controlled, out of A. fib, c ontinue amiodarone Type 2 diabetes mellitus, -Hold home Tresiba, Lantus 10 units at bedtime -Low-dose sliding scale Status: Acute (2) Pleural effusion: Status: Acute (3) Anemia: Status: Acute (4) Anticoagulation adequate with anticoagulant therapy: Status: Acute (5) COPD (chronic obstructive pulmonary disease): Status: Acute (6) NSTEMI (non-ST elevated myocardial infarction): Status: Acute (7) COPD with emphysema: Status: Acute (8) Hyperlipidemia: Status: Acute (9) Atrial fibrillation: Status: Acute (10) CAD (coronary artery disease): Status: Acute (11) Diabetes mellitus: Status: Acute Attestations Medical Necessity Statement*: Patient requires hospitalization for diastolic CHF exacerbation, GI bleed, anemia, NSTEMI Coding Level of Care Code Acute Administrative Program Specialist for [facility] Fwd Diagnoses Diastolic CHF, acute on chronic I50.33 Pleural effusion J90 Anemia D64.9 Anticoagulation adequate with anticoagulant therapy Z79.01 COPD (chronic obstructive pulmonary disease) J44.9 NSTEMI (non-ST elevated myocardial infarction) I21.4 COPD with emphysema J43.9 Hyperlipidemia E78.5 Atrial fibrillation I48.91 CAD (coronary artery disease) I25.10 Diabetes mellitus E11.9
[2021-10-05] MEDS: sucralfate 1 gm Tablet PO (17:49)
[2021-10-05] MEDS: insulin lispro 100 unit/1 mL SUBCUT (17:49)
--- NOTE | 2021-10-05 18:09 | USCV_ITS ---
Mayuri Ion Age: 86 Gender: M : 1935 Exam Date: 10/05/2021 06:14 Ordering Phys: Chapito Whitlock MD Technologist: RANJAN Exam Location: [facility] – [place] Indication: SOB BP: 180 / 68 HR: 67 Rhythm: Sinus Technical Quality: Adequate MEASUREMENTS (Male / Female) Normal Values 2D ECHO LV Diastolic Diameter PLAX 5.2 cm 4.2 - 5.9 / 3.9 - 5.3 cm LV Systolic Diameter PLAX 3.4 cm IVS Diastolic Thickness 1.4 cm 0.6 - 1.0 / 0.6 - 0.9 cm IVS Systolic Thickness 1.9 cm LVPW Diastolic Thickness 1.1 cm 0.6 - 1.0 / 0.6 - 0.9 cm LVPW Systolic Thickness 1.7 cm LVOT Diameter 2.0 cm LV Ejection Fraction 2D Teich 63.7 % LV Ejection Fraction MOD 2C 56.3 % LV Ejection Fraction 2C AL 60.1 % LA Diameter 3.6 cm Aorta at Sinotubular Diameter 2.9 cm M-MODE Aortic Annulus Diameter 3.3 cm LA Ao Ratio MM 1.1 MV E Point Septal Separation 0.9 cm DOPPLER AV Peak Velocity 211.0 cm/s LVOT Peak Velocity 120.0 cm/s AV Area Cont Eq vti 1.6 cm squared AV Area Cont Eq pk 1.8 cm squared MV Peak Velocity 178.0 cm/s MV Area PHT 5.0 cm squared Mitral E to A Ratio 0.7 MV E' Velocity 61.5 cm/s Mitral E to MV E' Ratio 18.9 Mitral E to LV E' Lateral Ratio 20.5 Mitral E to LV E' Septal Ratio 17.4 TV Peak E Velocity 42.0 cm/s Right Atrial Pressure 3.0 mmHg PV Peak Velocity 125.0 cm/s RV Acceleration Time 0.1 s RV Ejection Time 0.4 s RV AcT/ET 0.2 FINDINGS Left Ventricle Normal left ventricular size and systolic function, EF 66 %. No regional wall motion abnormalities. Grade I/IV diastolic dysfunction (abnormal relaxation filling pattern), normal to mildly elevated filling pressures. Right Ventricle Possibly normal RV size and ejection fraction Right Atrium The right atrium is normal in size. Left Atrium Mildly dilated left atrium Mitral Valve Thickened mitral valve. Moderate mitral annular calcification. Aortic Valve The bioprosthetic valve the aortic position appears to be well- seated. Peak velocity across the valve is 2.25 m/s Tricuspid Valve No gross abnormalities noted.trace tricuspid valve regurgitation. Pulmonic Valve Pulmonic valve not well visualized. Pericardium Appears to have large left-sided pleural effusion Aorta Normal aortic annulus size. CONCLUSIONS Normal left ventricular size and systolic function, EF 66 %. No regional wall motion abnormalities. Grade I/IV diastolic dysfunction (abnormal relaxation filling pattern), normal to mildly elevated filling pressures. Mildly dilated left atrium Bioprosthetic valve the aortic position appears to be well- seated with a peak velocity of 2.25 m/s Trace tricuspid valve regurgitation. Thickened mitral valve. Moderate mitral annular calcification. Appears to have large left-sided pleural effusion. There is no pericardial effusion. Compared to the study from 01/18/2021, there may not be a significant change Dr Comofrt Serrano MD FAC (Electronically Signed) Final Date: 05 October 2021 17:36 S
[2021-10-05] MEDS: cefTRIAXone 1,000 MG in sodium chloride 0.9% (plus) 50 ML 100 MG IV (18:39)
[2021-10-05] MEDS: azithromycin 500 MG in sodium chloride 0.9% 250 ML 250 MG IV (20:02)
--- NOTE | 2021-10-05 20:17 | PC.NURSE ---
i reported low o2 89 to nurse
[2021-10-05 20:34] LABS: Glucose Point of Care 263 mg/dL (70-110)
[2021-10-05] MEDS: atorvastatin 40 mg Tablet 10 MG PO (20:59)
[2021-10-05] MEDS: metoprolol succinate ER (24 HR) 25 mg Tablet PO (20:59)
[2021-10-05] MEDS: insulin glargine 100 units/1 mL 10 UNIT SUBCUT (21:05)
[2021-10-05] MEDS: iron sucrose 200 MG in sodium chloride 0.9% (100 ml) 100 ML 220 MG IV (21:14)
[2021-10-05] MEDS: FUROsemide 10 mg/mL SDV 10mL 60 MG IVP (23:18)
[2021-10-06] VITALS (25 sets, daily range): BP systolic 115–160; BP diastolic 51–67; PULSE 62–105; RESP 10–34; TEMP 36.7–37.9; O2SAT 65–100
[2021-10-06 00:02] LABS: Glucose Point of Care 315 mg/dL (70-110)
[2021-10-06] MEDS: sodium chloride 0.9% (100 ml) 100 ML 25 ML (00:08)
--- NOTE | 2021-10-06 00:51 | PC.NURSE ---
While visiting with the patient's family the topic of his code status was brought up, the patient's and daughter expressed that they did not want any intubation, feeding tubes, or prolonged efforts to resuscitate. Physician was notified and this nurse updated the status to limited code in patients chart. This nurse also notified Dr. Herrera at 2240 r/t pt's O2 saturations and received a N//O to give 60mg Lasix IVP once, before transfusion 1 unit of PRBC.
[2021-10-06] MEDS: ipratropium-albuterol 3 mL Neb INHALATION ×6 (02:43→23:13)
[2021-10-06] MEDS: acetaminophen 325 mg Tablet 650 MG PO (04:08)
--- NOTE | 2021-10-06 04:56 | PC.NURSE ---
i reported high temp 100.2 to nurse
[2021-10-06 06:01] LABS: Basophils % 0.3 %; Eosinophils % 0.3 %; Hematocrit 27.2 % (42.0-52.0); Hemoglobin 8.3 g/dL (11.7-16.6); Lymphocytes # 0.4 10^3/uL (0.8-4.8); Lymphocytes % 3.3 %; Mean Corpuscular HGB Conc 30.5 g/dL (30.0-36.0); Mean Corpuscular Volume 85.3 fl (80-94); Mean Platelet Volume 9.4 fL (7.4-10.4); Monocytes # 1.1 10^3/uL (0.2-0.9); Monocytes % 9.1 %; Neutrophils # 10.12 10^3/uL (1.8-7.7); Neutrophils % 86.4 %; Nucleated Red Blood Cells % 0.2 %; Platelet Count 394 10^3/cmm (130-400); Red Blood Count 3.19 10^6/uL (4.1-5.3); White Blood Count 11.7 10^3/uL (4.0-10.0)
[2021-10-06] MEDS: losartan 50 mg Tablet 25 MG PO (06:23)
[2021-10-06] MEDS: sucralfate 1 gm Tablet PO (06:23)
[2021-10-06] MEDS: amiodarone 200 mg Tablet PO (06:24)
[2021-10-06 06:26] LABS: Alanine Aminotransferase 9 U/L (0-41); Albumin Level 2.7 g/dL (3.5-5.2); Alkaline Phosphatase 106 IU/L (40-130); Anion Gap 13.9 (5-19); Aspartate Amino Transferase 11 U/L (0-40); Blood Urea Nitrogen 24 mg/dL (8-23); Calcium 7.6 mg/dL (8.5-10.5); Carbon Dioxide 35 mmol/L (22-29); Chloride 94 mmol/L (98-107); Globulin 2.8 g/dL (1.3-4.6); Glucose 243 mg/dL (65-115); Osmolality Calculated 300 mOsm/kg (285-295); Potassium 3.9 mmol/L (3.5-5.1); Sodium 139 mmol/L (136-145); Total Bilirubin 0.3 mg/dL (0.15-1.2); Total Protein 5.5 g/dL (6.6-8.7)
[2021-10-06 06:31] LABS: Magnesium 1.8 mg/dL (1.7-2.3); Phosphorus 2.6 mg/dL (2.5-4.5)
[2021-10-06 06:34] LABS: NT Pro B Type Natriuretic Pept 3560 pg/mL (0-450)
[2021-10-06 06:42] LABS: Glucose Point of Care 242 mg/dL (70-110)
[2021-10-06] MEDS: pantoprazole 40 mg SDV IVP ×2 (08:10→22:08)
[2021-10-06] MEDS: bumetanide 0.25 mg/mL SDV 4 mL 1 MG IVP ×3 (08:10→17:58)
[2021-10-06] MEDS: metOLazone 5 MG Tablet 10 MG PO (08:10)
[2021-10-06] MEDS: albuterol 8 gm MDI 2 PUFF INHALATION (08:18)
--- NOTE | 2021-10-06 08:58 | XR_ITS ---
WS: [id number] Portable AP upright chest, 10/06/2021 Clinical Data: worsening O2 needs Comparison: Portable chest, 10/04/2021. Findings: The bilateral patchy coronary opacities have increased in the last 2 days. There is still a moderate left pleural effusion and small right effusion. The heart is normal. The aortic arch and de scending thoracic aorta show calcification and tortuosity. Midline sternotomy sutures are present. Th ere are monitor leads on the chest wall. There is an orthopedic anchor in the right humeral head. XR/XR chest 1V portable [id number] Impression: 1. Slight increase in patchy bilateral pulmonary opacities consistent with wors ening pneumonia. 2. No change in bilateral effusions and atherosclerosis.
[2021-10-06] MEDS: LORazepam 2 mg/mL INJ 1 mL 1 MG IVP (09:06)
[2021-10-06 09:15] LABS: ABG PH Result 7.38 (7.35-7.45); Arterial Blood Gas Hematocrit 28.9 % (42-52); Base Excess ABG 16.2 mmol/L (-2.0-2.0); Blood Gas Allen Test Pos; Blood Gas Sample Type Arterial; Carboxyhemoglobin 1.5 %THgb (0.4-20.1); HGB O2 Sat 91.9 % (95-100); Ionized Calcium Level - ABG 1.1 mmol/L (1.1-1.4); Methemoglobin 0.6 % (0.4-1.5); Oxygen Saturation ABG 93.8; PO2 ABG 72.2 mmHg (80.0-100.0); Potassium Level - ABG 3.8 mmol/L (3.5-5.0); Total Hemoglobin 9.4 g/dL (14-18)
[2021-10-06 09:16] LABS: Alveolar-Arterial Oxygen Gradi 71.4 mmHg (5-10); Blood Gas Sample Site Radial, right; Oxygen Device BIPAP
[2021-10-06 09:49] LABS: Influenza A by IFA Negative (Negative); Influenza B by IFA Negative (Negative)
--- NOTE | 2021-10-06 10:22 | PC.CHAP ---
Pastoral Care Encounter/Spiritual Assessment Type of Contact [] Declined c software engineer visit [] Patient/Family/Request visit [] Outpatient visit [] Follow-up visit [] Physician referral [] Code/Alert [x] Routine visit [] Staff referral [] Actively dying [] Patient sleeping [] Family support [] [] Out of room [] Palliative care [] [x] Receiving care in room [] Pre-surgical visit [] Trauma [] Long length of stay [] ICU visit [] Other: Relational/Emotional Strength [] Patient feels connected with others/family/visitors/staff [] Distress [] Loneliness/isolation [] Abandonment Spirituality of Patient [] Person of Bridget [] Attends Jain of their Bridget [] Believes in Prayer [] Reads Bible or Religion materials [] There are Spiritual issues to be addressed Ct Technician Interventions [] Prayer [] Active listening [] Non-anxious presence [] Spiritual/emotional support [] Crisis/trauma care [] Spiritual counseling [] Bereavement support [] Provided bereavement packet [] Provided Bible/devotional materials [] Provided toy/stuffed animal, coloring book to patient or family member [] Provided Communion [] Anointing/[place] [] Salvation [] Completed spiritual assessment [] Other: Impact on Illness or Injury [] Angry [] Fearful [] Anxious [] Often cries [] Exhaustion [] Unable to work [] Unable to attend restoration [] Unable to walk/stand [] Unable to read [] Unable to drive [] Unable to eat/drink [] Unable to sleep [] Unable to be with family [] Patient intubated [] Other: Summary Time spent with patient
[2021-10-06 10:57] LABS: Glucose Point of Care 276 mg/dL (70-110)
[2021-10-06] MEDS: insulin lispro 100 unit/1 mL SUBCUT (13:31)
[2021-10-06 13:53] LABS: ABG PH Result 7.38 (7.35-7.45); Alveolar-Arterial Oxygen Gradi 54.8 mmHg (5-10); Arterial Blood Gas Hematocrit 29.3 % (42-52); Base Excess ABG 15.8 mmol/L (-2.0-2.0); Blood Gas Allen Test Pos; Blood Gas Sample Site Brachial, right; Blood Gas Sample Type Arterial; Carboxyhemoglobin 1.3 %THgb (0.4-20.1); HCO3 ABG 43.4 mmol/L (22-26); HGB O2 Sat 88.4 % (95-100); Ionized Calcium Level - ABG 1.1 mmol/L (1.1-1.4); Methemoglobin 0.4 % (0.4-1.5); Oxygen Device BIPAP; PO2 ABG 59.8 mmHg (80.0-100.0); Potassium Level - ABG 3.7 mmol/L (3.5-5.0); Total Hemoglobin 9.6 g/dL (14-18)
[2021-10-06 14:37] LABS: Adenovirus Not Detected (NOT DETECT); Chlamydia Pneumoniae Not Detected (NOT DETECT); Coronavirus 229E,HKU1,NL63,OC4 Not Detected (NOT DETECT); Human Metapneumovirus Not Detected (NOT DETECT); Human Rhinovirus/Enterovirus Not Detected (NOT DETECT); Influenza A Not Detected (NOT DETECT); Influenza A H1 Not Detected (NOT DETECT); Influenza A H1-2009 Not Detected (NOT DETECT); Influenza A H3 Not Detected (NOT DETECT); Influenza B Not Detected (NOT DETECT); Mycoplasma Pneumoniae Not Detected (NOT DETECT); Parainfluenza Virus Type 1 Not Detected (NOT DETECT); Parainfluenza Virus Type 2 Not Detected (NOT DETECT); Parainfluenza Virus Type 3 Not Detected (NOT DETECT); Parainfluenza Virus Type 4 Not Detected (NOT DETECT); Respiratory Syncytial Virus A Not Detected (NOT DETECT); Respiratory Syncytial Virus B Not Detected (NOT DETECT); SARS-COV-2 Not Detected (NOT DETECT)
[2021-10-06] MEDS: vancomycin 1,250 MG/250 ML PIGGYBACK 200 MG IV (15:25)
--- NOTE | 2021-10-06 16:04 | P.PN_ITS ---
Subjective Subjective: Interval history: Patient was seen early this morning, his O2 sats early in the morning were found to be in the low 80s, in mild respiratory distress, he was put up to 15 L nasal cannula, then into BiPAP, his ox saturations now in the high 90s, is on BiPAP, he follows commands, he is found to be in hypercarbic respiratory failure, his family is at bedside, he is doing better on the BiPAP Patient was reexamined this afternoon, he is on 100% BiPAP, he is alert to person, to place, he follows commands, family is at bedside, I discussed my concerns for worsening respiratory failure, he is his persistent hypoxia and hypercarbia, -I discussed patient's CODE STATUS in detail with him, he declines aggressive interventions, does not want to be intubated, does not want chest compressions, does not want CPR, does not want defibrillation -I discussed with patient and his family my concerns of worsening pulmonary edema, I have increased his diuresis, but he requires closer monitoring the ICU he might require a Lasix or Bumex drip -But his urine output is lackluster, about 1000 cc after 2 mg of Bumex and 10 mg of metolazone -I have increased his Bumex dosing, will have to monitor him closely overnight on BiPAP -I discussed the possibility of dialysis, patient declines -I also discussed with patient and family my concerns for his worsening respiratory status, and morbidity and mortality associated, patient and family does not want aggressive interventions, but they are okay with proceeding with medical interventions for now -Patient's daughter and are at bedside, they voiced understanding, all questions answered Vitals/I&O/Wt Last Vital Signs Temp 98.8 F 10/06/21 07:27 Pulse 69 10/06/21 15:29 Resp 31 H 10/06/21 15:29 BP 129/63 10/06/21 13:26 Pulse Ox 100 10/06/21 15:29 10/06/21 10/06/21 10/06/21 06:59 14:59 22:59 Intake Total 680 / 1950 Output Total 1300 / 4300 Balance -620 / -2350 Weight last 48 hrs Weight 80.541 kg Physical Exam Const: COMMON NORMALS: no acute distress and patient oriented x3 Resp: COMMON NORMALS: normal respiratory effort, No retractions and No use of accessory muscles AUSCULTATION: crackles Cardio: COMMON NORMALS: regular rate, regular rhythm, S1 normal heart sound present and S2 normal heart sound present RATE: regular rate RHYTHM: regular rhythm HEART SOUNDS: S1 normal heart sound present and S2 normal heart sound present GI: COMMON NORMALS: Normal to inspection, nondistended, normoactive bowel sounds present, Soft to palpation and non-tender PALPATION: Yes Soft to palpation Extremity: NARRATIVE EXTREMITY EXAM: 1+ pitting edema bilaterally Neuro: COMMON NORMALS: patient oriented x3 Psych: COMMON NORMALS: mental status grossly normal Urinary Catheter Management^: Tinajero: Cath Placed During This Visit: yes Reason for Continuing Indwelling Catheter: Acute Urinary Retention or Obstruction Urinary Catheter Date of Insertion: 10/04/21 Urinary Catheter Time of Insertion: 22:00 Data : 10/06/21 05:34 10/06/21 05:34 Micro: Microbiology 10/04/21 15:06 Blood Culture - Preliminary Blood NEGATIVE TO DATE 10/04/21 15:06 Blood Culture - Preliminary Blood NEGATIVE TO DATE A&P Assessment and plan (1) Diastolic CHF, acute on chronic: Acute hypoxic hypercarbic respiratory failure -Secondary to diastolic CHF as below -Possible underlying pneumonia -Currently managed on BiPAP -We will perform CT angiogram of the chest -We will moved down to ICU for closer monitoring Acute on chronic diastolic CHF exacerbation -Fluid restrictions 1200 cc -Bumex 1 mg IV every 6 hours -1 dose metolazone -Cardiac echocardiogram Normal left ventricular size and systolic function, EF 66 %. No regional wall motion abnormalities. Grade I/IV diastolic dysfunction (abnormal relaxation filling pattern), normal to mildly elevated filling pressures. Mildly dilated left atrium Bioprosthetic valve the aortic position appears to be well- seated with a peak velocity of 2.25 m/s Trace tricuspid valve regurgitation. Thickened mitral valve. Moderate mitral annular calcification. Appears to have large left-sided pleural effusion. There is no pericardial effusion. -Monitor creatinine, monitor urine output -Full code -DVT prophylaxis, SCDs, anticoagulation currently contraindicated given GI bleed concerns Left pleural effusion, continue diuresis, hold Eliquis, consider thoracocentesis NSTEMI -Initial troponin 152, 6-hour troponin was 162.6, EKG no acute ST-T wave changes, no chest pain complaints -Serial EKGs, serial troponins -Continue aspirin, statin -Telemetry monitoring -Anticoagulation currently on hold due to anemia, concerns for GI bleed -Elevated troponin likely multifactorial from acute respiratory failure, diastolic CHF and anemia, however cannot rule out underlying cardiac etiology GI bleed -Hemoglobin 8.3 -Is on Eliquis 2.5 mg twice daily for atrial fibrillation, currently on hold -Hemoccult was positive in the emergency room -No hemodynamic compromise -Hold Eliquis -s/p 2 unit prbc -Given cardiac history, maintain hemoglobin greater than 8 -Avoid fluid overload, Lasix therapy with blood -Protonix 40 IV twice daily, Carafate -Serum iron studies, show iron deficiency anemia, will give the IV iron -Monitor hemodynamics closely -General surgery has been consulted Bilateral patchy infiltrates on chest x-ray, concerning for pneumonia -WBC 11.7, pro-Francis within normal limits, febrile up to 100.2 -Covid PCR negative -Follow blood cultures, sputum cultures, urine bacterial antigens -Likely fluid overload, was covered with Rocephin and azithromycin, given worsening respiratory status will expand antibiotic coverage to vancomycin, cefepime, azithromycin COPD, will hold off on steroid therapy Paroxysmal atrial fibrillation, currently rhythm controlled, out of A. fib, continue amiodarone Type 2 diabetes mellitus, -Hold home Tresiba, Lantus 10 units at bedtime -Low-dose sliding scale Status: Acute (2) Pleural effusion: Status: Acute (3) Anemia: Status: Acute (4) Anticoagulation adequate with anticoagulant therapy: Status: Acute (5) COPD (chronic obstructive pulmonary disease): Status: Acute (6) NSTEMI (non-ST elevated myocardial infarction): Status: Acute (7) COPD with emphysema: Status: Acute (8) Hyperlipidemia: Status: Acute (9) Atrial fibrillation: Status: Acute (10) CAD (coronary artery disease): Status: Acute (11) Diabetes mellitus: Status: Acute (12) Acute respiratory failure with hypoxia: Status: Acute Attestations Medical Necessity Statement*: Patient requires hospitalization for acute respiratory failure with hypoxia with hypercarbia secondary to pulmonary edema, critical care time spent over 55 minutes Coding Level of Care Code Acute Aircraft Fueler for [facility] Diagnoses Diastolic CHF, acute on chronic I50.33 Pleural effusion J90 Anemia D64.9 Anticoagulation adequate with anticoagulant therapy Z79.01 COPD (chronic obstructive pulmonary disease) J44.9 NSTEMI (non-ST elevated myocardial infarction) I21.4 COPD with emphysema J43.9 Hyperlipidemia E78.5 Atrial fibrillation I48.91 CAD (coronary artery disease) I25.10 Diabetes mellitus E11.9 Acute respiratory failure with hypoxia J96.01
--- NOTE | 2021-10-06 16:08 | CTR_ITS ---
PROCEDURE INFORMATION: Exam: CTA Chest With Contrast Exam date and time: 10/06/2021 4:08 PM Age: 86 years old Clinical indication: Shortness of breath; Prior surgery; Surgery type: Stent, valve; Additional info: Resp failure TECHNIQUE: Imaging protocol: Computed tomographic angiography of the chest with contrast. 3D rendering (Not supervised by radiologist): MIP and/or 3D reconstructed images were created by the technologist. Radiation optimization: All CT scans at this facility use at least one of these dose optimization techniques: automated exposure control; mA and/or kV adjustment per patient size (includes targeted exams where dose is matched to clinical indication); or iterative reconstruction. Contrast material: OMNI 350; Contrast volume: 88 ml; Contrast route: INTRAVENOUS (IV); COMPARISON: CT angio chest PE protcl [id number] 12/01/2019 5:31 PM RADIATION DOSE METRICS: Total DLP (mGy-cm): 640.7 FINDINGS: Pulmonary arteries: No pulmonary embolus or aortic dissection. Aorta: Calcification of the abdominal aorta and/or iliac arteries consistent with atherosclerotic vessel disease. Lungs: Severe centrilobular emphysema. [id number] nonspecific bilateral pulmonary opacities most consistent with pneumonia versus pulmonary edema. Pleural spaces: Left apical fibrocalcific pleural and/or parenchymal scarring. Right apical pleural and/or parenchymal scarring. Interval appearance of mild right and moderate left pleural fluid collections. Heart: Severe calcified coronary artery disease. Aortic valve replacement. Lymph nodes: Calcified bilateral hilar nodes and/or mediastinal nodes and/or lung granulomas consistent with old granulomatous disease. Bones/joints: Previous sternotomy. Soft tissues: Unremarkable. Other findings: Examination is limited by artifact from one or both arms by the patient's side. CT/CT angio chest PE protcl [id number] IMPRESSION: 1. Severe centrilobular emphysema. 2. [id number] nonspecific bilateral pulmonary opacities most consistent with pneumonia versus pulmonary edema. 3. Severe calcified coronary artery disease. 4. Aortic valve replacement. 5. No pulmonary embolus or aortic dissection.
[2021-10-06 16:55] LABS: Anion Gap 14.8 (5-19); Blood Urea Nitrogen 27 mg/dL (8-23); Calcium 7.9 mg/dL (8.5-10.5); Carbon Dioxide 35 mmol/L (22-29); Chloride 94 mmol/L (98-107); Glucose 159 mg/dL (65-115); Osmolality Calculated 298 mOsm/kg (285-295); Potassium 3.8 mmol/L (3.5-5.1); Sodium 140 mmol/L (136-145)
[2021-10-06 16:58] LABS: Glucose Point of Care 175 mg/dL (70-110)
[2021-10-06] MEDS: cefepime 2,000 MG in sodium chloride 0.9% (plus) 50 ML 100 MG IV (17:53)
[2021-10-06] MEDS: iohexol 350 mg/mL 100 mL Btl IV (20:17)
[2021-10-06 20:54] LABS: ABG PCO2 75.1 mmHg (35-45)
[2021-10-06 20:55] LABS: ABG PCO2 72.8 mmHg (35-45)
[2021-10-06 21:27] LABS: Glucose Point of Care 106 mg/dL (70-110)
[2021-10-06] MEDS: azithromycin 500 MG in sodium chloride 0.9% 250 ML 250 MG IV (22:08)
[2021-10-06] MEDS: insulin glargine 100 units/1 mL 10 UNIT SUBCUT (22:24)
[2021-10-06] MEDS: latanoprost 0.005% Op Soln 2.5 mL Btl 1 DROP EYE-BOTH (22:31)
[2021-10-07] VITALS (73 sets, daily range): BP systolic 108–145; BP diastolic 47–89; PULSE 59–80; RESP 16–35; TEMP 36.8; O2SAT 87–100
[2021-10-07] MEDS: ipratropium-albuterol 3 mL Neb INHALATION ×6 (03:01→23:37)
[2021-10-07 04:12] LABS: Basophils % 0.3 %; Eosinophils # 0.1 10^3/uL (0.0-0.8); Eosinophils % 0.9 %; Hematocrit 30.5 % (42.0-52.0); Hemoglobin 9.1 g/dL (11.7-16.6); Lymphocytes # 0.6 10^3/uL (0.8-4.8); Lymphocytes % 4.2 %; Mean Corpuscular HGB Conc 29.8 g/dL (30.0-36.0); Mean Corpuscular Hemoglobin 26.1 pg (28.0-34.0); Mean Corpuscular Volume 87.4 fl (80-94); Mean Platelet Volume 9.6 fL (7.4-10.4); Monocytes # 1.1 10^3/uL (0.2-0.9); Monocytes % 7.9 %; Neutrophils # 11.99 10^3/uL (1.8-7.7); Neutrophils % 86.3 %; Nucleated Red Blood Cells % 0.1 %; Platelet Count 425 10^3/cmm (130-400); Red Blood Count 3.49 10^6/uL (4.1-5.3); Red Cell Distribution Width 15.6 % (12.1-15.1); White Blood Count 13.9 10^3/uL (4.0-10.0)
[2021-10-07 04:30] LABS: Alanine Aminotransferase 10 U/L (0-41); Alkaline Phosphatase 106 IU/L (40-130); Anion Gap 12.3 (5-19); Aspartate Amino Transferase 13 U/L (0-40); Blood Urea Nitrogen 33 mg/dL (8-23); Calcium 8.1 mg/dL (8.5-10.5); Carbon Dioxide 38 mmol/L (22-29); Chloride 95 mmol/L (98-107); Globulin 3.4 g/dL (1.3-4.6); Glucose 101 mg/dL (65-115); Osmolality Calculated 301 mOsm/kg (285-295); Potassium 3.3 mmol/L (3.5-5.1); Sodium 142 mmol/L (136-145); Total Bilirubin 0.3 mg/dL (0.15-1.2); Total Protein 6.4 g/dL (6.6-8.7)
[2021-10-07 04:35] LABS: C Reactive Protein 265.2 mg/L (0.0-4.9); Magnesium 1.9 mg/dL (1.7-2.3); Phosphorus 2.8 mg/dL (2.5-4.5)
[2021-10-07 04:37] LABS: NT Pro B Type Natriuretic Pept 3266 pg/mL (0-450); Procalcitonin 0.96 ng/mL (0-0.5)
[2021-10-07] MEDS: cefepime 2,000 MG in sodium chloride 0.9% (plus) 50 ML 100 MG IV ×2 (04:46→16:06)
[2021-10-07] MEDS: losartan 50 mg Tablet 25 MG PO (05:18)
[2021-10-07] MEDS: amiodarone 200 mg Tablet PO (05:18)
[2021-10-07] MEDS: sucralfate 1 gm Tablet PO ×2 (05:18→16:07)
[2021-10-07 06:34] LABS: Glucose Point of Care 120 mg/dL (70-110)
--- NOTE | 2021-10-07 07:00 | XRR_ITS ---
PROCEDURE INFORMATION: Exam: XR Chest Exam date and time: 10/07/2021 7:00 AM Age: 86 years old Clinical indication: Shortness of breath; Prior surgery; Surgery type: Stents, valve; Additional info: SOB TECHNIQUE: Imaging protocol: XR of the chest. Views: 1 view. COMPARISON: CR XR chest 1V portable [id number] 10/06/2021 9:06 AM FINDINGS: Lungs: Persistent redistribution and indistinctness of the pulmonary vasculature, in association with haziness of the lungs and small bilateral pleural effusions, which in the setting of cardiomegaly is consistent with pulmonary edema. Pneumonia should be excluded clinically. No pneumothorax. The lungs are somewhat hyperinflated, suggestive of COPD background. Pleural spaces: See Lungs finding. Heart/Mediastinum: Stable cardiomediastinal silhouette. Bones/joints: Median sternotomy changes seen. XR/XR chest 1V portable [id number] IMPRESSION: 1. Unchanged pulmonary edema with small bilateral pleural effusions, left greater than right. Superimposed pneumonia should be excluded clinically. 2. COPD changes.
[2021-10-07 08:38] LABS: ABG PH Result 7.42 (7.35-7.45); Arterial Blood Gas Hematocrit 28.9 % (42-52); Base Excess ABG 16.3 mmol/L (-2.0-2.0); Blood Gas Sample Site Radial, right; Blood Gas Sample Type Arterial; HCO3 ABG 43.2 mmol/L (22-26); Oxygen Device BIPAP; PO2 ABG 81.8 mmHg (80.0-100.0)
[2021-10-07 08:42] LABS: ABG PCO2 67.4 mmHg (35-45)
[2021-10-07] MEDS: cloNIDine 0.1 mg Tablet 0.2 MG PO ×3 (09:04→20:36)
[2021-10-07] MEDS: tamsulosin 0.4 mg Capsule PO ×2 (09:04→16:48)
[2021-10-07] MEDS: finasteride 5 mg Tablet PO (09:05)
[2021-10-07] MEDS: metOLazone 5 MG Tablet 10 MG PO (09:05)
[2021-10-07] MEDS: lidocaine 1% 5 ML in potassium chloride premix 100 ML 25 ML IV (09:05)
[2021-10-07] MEDS: vancomycin 1,250 MG/250 ML PIGGYBACK 250 MG IV (09:07)
[2021-10-07] MEDS: pantoprazole 40 mg SDV IVP ×2 (09:07→20:36)
--- NOTE | 2021-10-07 09:25 | PC.SOCIAL ---
IMM UPDATED IMM dated and initialed and copy given to patient
[2021-10-07 11:28] LABS: Glucose Point of Care 226 mg/dL (70-110)
[2021-10-07] MEDS: insulin lispro 100 unit/1 mL SUBCUT ×2 (11:31→16:49)
--- NOTE | 2021-10-07 12:04 | US_ITS ---
WS: [id number] ULTRASOUND-GUIDED THORACENTESIS CLINICAL INFORMATION: left pleural effusion COMPARISON: None. PROCEDURE: Informed consent: The risks, benefits, and alternatives of the procedure were discussed with the aram ent. Verbal and written consent was obtained. Timeout: A timeout was performed to confirm the correct patient, procedure, and site. Site: Left chest Preparation: A suitable skin site was identified. The patient was prepped and draped in usual sterile fashion. Lidocaine 1% was used for local anesthesia. Catheter: 4 Telugu One-Step catheter. Fluid Volume: 1000 ml Color: Bloody serous No immediate complications. 50 cc Sent to the laboratory for analysis. / thoracentesis [id number] IMPRESSION: 1. Ultrasound-guided left thoracentesis with removal of 1000 cc. 2. Post thoracentesis radiograph demonstrates incomplete reexpansion left lowe r lobe with small left basilar pneumothorax and adjacent compressed lung 3. Recommend short interval follow-up in 3 to 4 hours to assess reexpansion an d pneumothorax. Notified Chapito Whitlock MD at 10/07/2021 3:12 PM.
[2021-10-07 13:58] LABS: Lactate Dehydrogenase 238 U/L (135-225)
--- NOTE | 2021-10-07 14:08 | XR_ITS ---
WS: [id number] CHEST XRAY TECHNIQUE: Portable chest. CLINICAL INFORMATION: s/p thoracentesis COMPARISON: October 07, 2021 FINDINGS: Heart: Cardiomegaly with tortuous thoracic aorta. Sternotomy. Lungs: Advanced chronic emphysematous changes. Resolved left pleural effusion post left thoracentesis . Incomplete reexpansion of the left lower lobe which is similar in appearance to the prethoracentesi s radiograph with left basilar pneumothorax. Adjacent compressed left lower lobe. Small right pleural effusion unchanged. Stable interstitial thickening throughout both lungs. Bones: Osteopenia. XR/XR chest 1V portable [id number] IMPRESSION: 1. Post thoracentesis left pleural effusion. Incomplete reexpansion of the lef t lung with pneumothorax left lower lobe. Left lung is similar in appearance to the prethoracentesis radiograph. Recommend short interval follow-up in 3 to 4 hours to assess reexpansion and pneumothorax. 2. Small right pleural effusion unchanged. 3. Stable cardiomegaly. Notified Chapito Whitlock MD at 10/07/2021 3:08 PM.
--- NOTE | 2021-10-07 14:23 | PC.NURSE ---
thoracentesis performed by dr lovelace on left lower lung .1000 cc straw colored fluid obtained.specimens sent to lab as ordered.pcxr obtained.pt tolerated procedure well
[2021-10-07 14:52] LABS: Hematocrit Body Fluid 0.1 %
[2021-10-07 14:58] LABS: Body Fluid Polynuclear #Cells 0.259; Body Fluid WBC 623 /uL; Monocytes # Body Fluid 0.364
[2021-10-07 15:19] LABS: PATH Referral YES
[2021-10-07 15:22] LABS: Albumin Body Fluid 1.7 g/dL; Creatinine Body Fluid 1.38 (0.7-1.2); Total Protein Pleural Fluid 2.6 g/dL; Triglycerides, Pleural Fluid 14 mg/dL
[2021-10-07 15:23] LABS: LDH Pleural Fluid 177 U/L
[2021-10-07 15:24] LABS: Apprearance, Body Fluid CLOUDY; Color, Body Fluid PALE YELLOW
[2021-10-07] MEDS: acetaZOLAMIDE 250 mg Tablet PO (16:07)
--- NOTE | 2021-10-07 16:17 | P.PN_ITS ---
Subjective Subjective: Interval history: Patient was examined multiple times throughout the day Early the morning patient was examined, he is on BiPAP, at about 100%, alert to person, to place, follows commands, he tells me that he did sleep throughout the night, when they took off the BiPAP this morning to put him on heated high flow, his sats dropped into the 60s, so they put him back on the BiPAP, he tells me he is very thirsty, patient's family is at bedside Patient was reexamined this afternoon, he is put out a little over 1000 cc, still short of breath, slight intercostal and subcostal retractions, I discussed his left-sided pleural fluid, discuss improvement is his oxygenation and work of breathing and expansion of the lung status if we were to try to attempt a thoracocentesis on the left, discussed risks and benefits, risk including but not limited to reexpansion injury, pneumothorax, him and his daughter voiced recently, all questions answered, agreed to proceed Patient had left thoracocentesis, roughly 1000 cc taken off, he was reexamined, he is down to 70% FiO2 Patient's chest x-ray status post left thoracocentesis shows a small left pneumothorax, left lower lobe, with incomplete expansion of the left lung, patient was reexamined, he tells me he is feeling better, still on 70% FiO2, on BiPAP Discussed with daughter and patient, discuss expansion of pneumothorax, complications associated with it, including requirement for chest tube placement, however for now pneumothorax appears small, will repeat chest x-ray in a few hours, take him off BiPAP to avoid positive pressure ventilation expansion of pneumothorax, continue to monitor we will put on heated high flow Vitals/I&O/Wt Last Vital Signs Temp 98.3 F 10/07/21 08:00 Pulse 70 10/07/21 15:30 Resp 22 H 10/07/21 15:30 BP 123/72 10/07/21 16:06 Pulse Ox 91 10/07/21 15:30 10/07/21 10/07/21 10/07/21 06:59 14:59 22:59 Intake Total 300 / 840 730 / 730 Output Total 800 / 2000 Balance -500 / -1160 730 / 730 Physical Exam Const: GENERAL APPEARANCE: anxious, ill appearing and frail appearing ORIENTATION/CONSCIOUSNESS: Yes awake, Yes oriented to person, Yes oriented to place and Yes oriented to time Resp: COMMON NORMALS: normal respiratory effort, No retractions and No use of accessory muscles AUSCULTATION: crackles Cardio: COMMON NORMALS: regular rate, regular rhythm and S1 normal heart sound present RATE: regular rate RHYTHM: regular rhythm HEART SOUNDS: S1 normal heart sound present GI: COMMON NORMALS: Normal to inspection, nondistended, normoactive bowel sounds present, Soft to palpation and non-tender PALPATION: Yes Soft to palpation Extremity: COMMON NORMALS: no pedal edema Neuro: SENSORIUM/ORIENTATION: Yes oriented to person, Yes oriented to place and Yes oriented to time Urinary Catheter Management^: Tinajero: Cath Placed During This Visit: yes Reason for Continuing Indwelling Catheter: Other Urinary Catheter Date of Insertion: 10/04/21 Urinary Catheter Time of Insertion: 22:00 Data : 10/07/21 03:21 10/07/21 03:21 Micro: Microbiology 10/07/21 14:15 Gram Stain - Final Pleural Fluid 10/07/21 03:00 MRSA Culture - Final Nose A&P Assessment and plan (1) Diastolic CHF, acute on chronic: Acute hypoxic hypercarbic respiratory failure -Currently being managed in the [facility] -Secondary to diastolic CHF as below -Possible underlying pneumonia given elevated CRP pro-Francis -CT angiogram does not show any radiographic evidence of pulmonary emboli but does show severe centrilobular emphysema, mild to moderate nonspecific bilateral pulmonary opacities consistent with pneumonia versus pulmonary edema -Given evidence of left-sided pneumothorax, avoid positive pressure ventilation -Transition to heated high flow -Status is stable, prognosis is guarded Acute on chronic diastolic CHF exacerbation -Fluid restrictions 1200 cc -Bumex 1 mg IV every 6 hours -1 dose metolazone -Cardiac echocardiogram Normal left ventricular size and systolic function, EF 66 %. No regional wall motion abnormalities. Grade I/IV diastolic dysfunction (abnormal relaxation filling pattern), normal to mildly elevated filling pressures. Mildly dilated left atrium Bioprosthetic valve the aortic position appears to be well- seated with a peak velocity of 2.25 m/s Trace tricuspid valve regurgitation. Thickened mitral valve. Moderate mitral annular calcification. Appears to have large left-sided pleural effusion. There is no pericardial effusion. -Monitor creatinine, monitor urine output -Full code -DVT prophylaxis, SCDs, anticoagulation currently contraindicated given GI bleed concerns Left pleural effusion, status post thoracocentesis, on diuresis, now with left pneumothorax with incomplete expansion of left lung, repeat chest x-ray at 6 PM NSTEMI -Initial troponin 152, 6-hour troponin was 162.6, EKG no acute ST-T wave changes, no chest pain complaints -Serial EKGs, serial troponins -Continue aspirin, statin -Telemetry monitoring -Anticoagulation currently on hold due to anemia, concerns for GI bleed -Elevated troponin likely multifactorial from acute respiratory failure, diastolic CHF and anemia, however cannot rule out underlying cardiac etiology GI bleed -Hemoglobin 9.1 -Was on Eliquis 2.5 mg twice daily for atrial fibrillation, currently on hold -Hemoccult was positive in the emergency room -No hemodynamic compromise -Hold Eliquis -s/p 2 unit prbc -Given cardiac history, maintain hemoglobin greater than 8 -Avoid fluid overload, Lasix therapy with blood if needed -Protonix 40 IV twice daily, Carafate -Serum iron studies, show iron deficiency anemia, will give the IV iron -Monitor hemodynamics closely -General surgery has been consulted Bilateral patchy infiltrates on chest x-ray, and CT angiogram concerning for pneumonia -WBC 13.9, pro-Francis 0.96, CRP 265 febrile up to 100.2 -Covid PCR negative -Follow blood cultures, sputum cultures, urine bacterial antigens -Likely fluid overload, was covered with Rocephin and azithromycin, given worsening respiratory status will expand antibiotic coverage to cefepime, azithromycin -Vancomycin has been stopped due to negative MRSA PCR COPD, will hold off on steroid therapy as no active wheezing Paroxysmal atrial fibrillation, currently rhythm controlled, out of A. fib, continue amiodarone Type 2 diabetes mellitus, -Hold home Tresiba, Lantus 10 units at bedtime -Low-dose sliding scale Status: Acute (2) Pleural effusion: Status: Acute (3) Anemia: Status: Acute (4) Anticoagulation adequate with anticoagulant therapy: Status: Acute (5) COPD (chronic obstructive pulmonary disease): Status: Acute (6) NSTEMI (non-ST elevated myocardial infarction): Status: Acute (7) COPD with emphysema: Status: Acute (8) Hyperlipidemia: Status: Acute (9) Atrial fibrillation: Status: Acute (10) CAD (coronary artery disease): Status: Acute (11) Diabetes mellitus: Status: Acute (12) Acute respiratory failure with hypoxia: Status: Acute (13) Pneumothorax: Status: Acute Attestations Medical Necessity Statement*: Patient requires hospitalization for acute on chronic diastolic CHF, acute respiratory failure, left pleural effusion, NSTEMI, GI bleed, left pneumothorax Coding Level of Care 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
[2021-10-07 16:43] LABS: Glucose Point of Care 279 mg/dL (70-110)
[2021-10-07] MEDS: lanolin oint 7 gm 1 APPLIC TOPICAL (16:48)
--- NOTE | 2021-10-07 18:00 | XRR_ITS ---
PROCEDURE INFORMATION: Exam: XR Chest Exam date and time: 10/07/2021 6:00 PM Age: 86 years old Clinical indication: Shortness of breath; Prior surgery; Surgery date: 6+ months; Additional info: Small pneumo left lower lobe TECHNIQUE: Imaging protocol: XR of the chest. Views: 1 view. COMPARISON: CR XR chest 1V portable [id number] 10/07/2021 2:18 PM FINDINGS: Lungs: Diffuse interstitial fibrosis. Patchy pulmonary ground-glass opacities are nonspecific. Pleural spaces: Bilateral pleural effusions. Small pneumothorax on the left. Heart/Mediastinum: Moderate cardiomegaly. Previous CABG. Bones/joints: Unremarkable. XR/XR chest 1V portable [id number] IMPRESSION: No change in size of small left pneumothorax.
--- NOTE | 2021-10-07 18:54 | PC.NURSE ---
reported Xray findings to Dr Whitlock instructions to continue Heated High flow through the night and avoid Bi pap
--- NOTE | 2021-10-07 19:15 | PC.NURSE ---
Received report from ITZEL Logan. Patient resting in bed. Currently has heated high flow in place per RT. Daughter at bedside. Tinajero in place. Patient denies pain presently. No distress observed. Will continue to monitor.
[2021-10-07 20:15] LABS: Glucose Point of Care 217 mg/dL (70-110)
[2021-10-07] MEDS: metoprolol succinate ER (24 HR) 25 mg Tablet PO (20:36)
[2021-10-07] MEDS: insulin glargine 100 units/1 mL 10 UNIT SUBCUT (20:36)
[2021-10-07] MEDS: azithromycin 500 MG in sodium chloride 0.9% 250 ML 250 MG IV (20:36)
[2021-10-07] MEDS: atorvastatin 40 mg Tablet 10 MG PO (20:37)
[2021-10-08] VITALS (22 sets, daily range): BP systolic 120–148; BP diastolic 50–65; PULSE 61–79; RESP 16–24; TEMP 36.5–37.4; O2SAT 92–96
[2021-10-08 01:39] LABS: Glucose Point of Care 189 mg/dL (70-110)
[2021-10-08] MEDS: ipratropium-albuterol 3 mL Neb INHALATION ×6 (03:08→23:20)
--- NOTE | 2021-10-08 03:22 | PC.NURSE ---
Patient slept well through the night. Able to keep patient on heated high flow as ordered with SpO2 91-94%. Patient instructed on Zithromax and Cefepime. Patient verbalized understanding but will require reinforcement. Patient denies pain. Repositioned for comfort. No distress observed. Will continue to monitor.
[2021-10-08] MEDS: acetaZOLAMIDE 250 mg Tablet PO (05:05)
[2021-10-08] MEDS: losartan 50 mg Tablet 25 MG PO (05:05)
[2021-10-08] MEDS: cefepime 2,000 MG in sodium chloride 0.9% (plus) 50 ML 100 MG IV ×2 (05:05→16:02)
[2021-10-08] MEDS: sucralfate 1 gm Tablet PO ×2 (05:05→16:20)
[2021-10-08] MEDS: amiodarone 200 mg Tablet PO (05:05)
[2021-10-08 05:24] LABS: Basophils % 0.4 %; Eosinophils # 0.4 10^3/uL (0.0-0.8); Eosinophils % 3.5 %; Hematocrit 28.3 % (42.0-52.0); Hemoglobin 8.5 g/dL (11.7-16.6); Lymphocytes # 0.5 10^3/uL (0.8-4.8); Lymphocytes % 4.8 %; Mean Corpuscular Volume 86.5 fl (80-94); Mean Platelet Volume 9.6 fL (7.4-10.4); Monocytes # 0.9 10^3/uL (0.2-0.9); Monocytes % 8.2 %; Neutrophils # 8.62 10^3/uL (1.8-7.7); Neutrophils % 82.6 %; Nucleated Red Blood Cells % 0 %; Platelet Count 401 10^3/cmm (130-400); Red Blood Count 3.27 10^6/uL (4.1-5.3); Red Cell Distribution Width 16.1 % (12.1-15.1); White Blood Count 10.4 10^3/uL (4.0-10.0)
[2021-10-08 05:37] LABS: Alanine Aminotransferase 10 U/L (0-41); Albumin Level 2.7 g/dL (3.5-5.2); Alkaline Phosphatase 93 IU/L (40-130); Aspartate Amino Transferase 14 U/L (0-40); Blood Urea Nitrogen 55 mg/dL (8-23); Calcium 7.9 mg/dL (8.5-10.5); Carbon Dioxide 35 mmol/L (22-29); Chloride 95 mmol/L (98-107); Globulin 2.9 g/dL (1.3-4.6); Glucose 182 mg/dL (65-115); Magnesium 2.1 mg/dL (1.7-2.3); Osmolality Calculated 308 mOsm/kg (285-295); Phosphorus 2.9 mg/dL (2.5-4.5); Sodium 139 mmol/L (136-145); Total Bilirubin 0.3 mg/dL (0.15-1.2); Total Protein 5.6 g/dL (6.6-8.7)
[2021-10-08 05:38] LABS: ABG PH Result 7.37 (7.35-7.45); Arterial Blood Gas Hematocrit 29.2 % (42-52); Blood Gas Sample Site Radial, left; Blood Gas Sample Type Arterial; Oxygen Device NC; PO2 ABG 61.3 mmHg (80.0-100.0)
[2021-10-08 05:57] LABS: C Reactive Protein 232.2 mg/L (0.0-4.9)
[2021-10-08 06:08] LABS: NT Pro B Type Natriuretic Pept 2816 pg/mL (0-450); Procalcitonin 1.04 ng/mL (0-0.5)
[2021-10-08 06:12] LABS: INR 1.07 (0.8-1.2)
[2021-10-08 06:20] LABS: Glucose Point of Care 209 mg/dL (70-110)
[2021-10-08 06:34] LABS: ABG PCO2 63.9 mmHg (35-45)
--- NOTE | 2021-10-08 07:00 | XRR_ITS ---
PROCEDURE INFORMATION: Exam: XR Chest Exam date and time: 10/08/2021 7:00 AM Age: 86 years old Clinical indication: Shortness of breath; Prior surgery; Surgery type: Stents, valve; Additional info: SOB TECHNIQUE: Imaging protocol: XR of the chest. Views: 1 view. COMPARISON: CR (CHEST, ) 10/07/2021 6:05 PM FINDINGS: Lungs: There is redistribution and indistinctness of the pulmonary vasculature, in association with haziness of the lungs and small bilateral pleural effusions, which in the setting of cardiomegaly is consistent with pulmonary edema. Pneumonia should be excluded clinically. No pneumothorax. Pleural spaces: See Lungs finding. Heart/Mediastinum: Stable cardiomediastinal silhouette. Bones/joints: Median sternotomy changes seen. Degenerative changes of the spine seen. Surgical changes of right shoulder joint seen. XR/XR chest 1V portable [id number] IMPRESSION: Persistent pulmonary edema with small bilateral pleural effusions. Pneumonia should be excluded clinically.
[2021-10-08 08:02] LABS: NT Pro B Type Natriuretic Pept 3069 pg/mL (0-450)
[2021-10-08] MEDS: pantoprazole 40 mg SDV IVP ×2 (08:41→20:28)
[2021-10-08] MEDS: insulin lispro 100 unit/1 mL SUBCUT ×4 (08:41→21:36)
[2021-10-08] MEDS: finasteride 5 mg Tablet PO (08:42)
[2021-10-08] MEDS: cloNIDine 0.1 mg Tablet 0.2 MG PO ×3 (08:42→20:28)
[2021-10-08] MEDS: tamsulosin 0.4 mg Capsule PO ×2 (08:42→17:40)
[2021-10-08] MEDS: predniSONE 5 mg Tablet 2.5 MG PO (08:45)
[2021-10-08 11:23] LABS: Glucose Point of Care 310 mg/dL (70-110)
[2021-10-08 11:23] LABS: Glucose Point of Care 314 mg/dL (70-110)
--- NOTE | 2021-10-08 12:55 | P.PN_ITS ---
Subjective Subjective: Interval history: Patient was seen this morning, currently on 8 L 45%, alert to person, to place to time, reports poor appetite this morning, but did have good rest overnight, his breathing has improved, his edema is improved, no fevers overnight, no cough, is at bedside also daughters at bedside I discussed my concerns for acute respiratory distress syndrome given his increased oxygen requirements, looks like his pneumothorax has resolved, however would avoid positive pressure ventilation, creatinine has increased, will avoid Lasix therapy for 24 hours, monitor urine output continue antibiotic therapy, start steroid therapy Vitals/I&O/Wt Last Vital Signs Temp 98.2 F 10/08/21 03:06 Pulse 79 10/08/21 11:15 Resp 21 H 10/08/21 11:15 BP 137/58 10/08/21 08:42 Pulse Ox 95 10/08/21 11:15 10/07/21 10/08/21 10/08/21 22:59 06:59 14:59 Intake Total 540 / 1375 50 / 1425 180 / 180 Output Total 600 / 600 300 / 900 Balance -60 / 775 -250 / 525 180 / 180 Physical Exam Const: COMMON NORMALS: no acute distress and patient oriented x3 GENERAL APPEARANCE: cooperative and frail appearing ORIENTATION/CONSCIOUSNESS: Yes awake, Yes oriented to person, Yes oriented to place and Yes oriented to time Resp: COMMON NORMALS: normal respiratory effort, No retractions and No use of accessory muscles AUSCULTATION: diminished lung sounds diffuse Cardio: COMMON NORMALS: regular rate, regular rhythm, S1 normal heart sound present and S2 normal heart sound present RATE: regular rate RHYTHM: regular rhythm HEART SOUNDS: S1 normal heart sound present and S2 normal heart sound present GI: COMMON NORMALS: Normal to inspection, nondistended, normoactive bowel sounds present, Soft to palpation and non-tender PALPATION: Yes Soft to palpation Extremity: COMMON NORMALS: no pedal edema Neuro: COMMON NORMALS: patient oriented x3 SENSORIUM/ORIENTATION: Yes oriented to person, Yes oriented to place and Yes oriented to time Psych: COMMON NORMALS: mental status grossly normal Urinary Catheter Management^: Tinajero: Cath Placed During This Visit: yes Reason for Continuing Indwelling Catheter: Acute Urinary Retention or Obstruction Urinary Catheter Date of Insertion: 10/04/21 Urinary Catheter Time of Insertion: 22:00 Data : 10/08/21 04:52 10/08/21 04:52 Micro: Microbiology 10/07/21 14:15 Gram Stain - Final Pleural Fluid Body Fluid Culture - Preliminary 10/07/21 03:00 MRSA Culture - Final Nose A&P Assessment and plan (1) Diastolic CHF, acute on chronic: Acute hypoxic hypercarbic respiratory failure -Given increased oxygen requirements, evidence of acute respiratory distress syndrome -Currently being managed in the [facility] -Secondary to diastolic CHF as below -Possible underlying pneumonia given elevated CRP pro-Francis -CT angiogram does not show any radiographic evidence of pulmonary emboli but does show severe centrilobular emphysema, mild to moderate nonspecific bilateral pulmonary opacities consistent with pneumonia versus pulmonary edema -Given evidence of left-sided pneumothorax, though not seen on repeat chest x- rays, still avoid positive pressure ventilation -Transition to heated high flow -Start Solu-Medrol 125 mg every 24 hours -Status is stable, prognosis is guarded Acute on chronic diastolic CHF exacerbation -Fluid restrictions 1200 cc -Creatinine up to 1.8, avoid Bumex therapy for the next 24 hours -1 dose metolazone Normal left ventricular size and systolic function, EF 66 %. No regional wall motion abnormalities. Grade I/IV diastolic dysfunction (abnormal relaxation filling pattern), normal to mildly elevated filling pressures. Mildly dilated left atrium Bioprosthetic valve the aortic position appears to be well- seated with a peak velocity of 2.25 m/s Trace tricuspid valve regurgitation. Thickened mitral valve. Moderate mitral annular calcification. Appears to have large left-sided pleural effusion. There is no pericardial effusion. -Monitor creatinine, monitor urine output -Full code -DVT prophylaxis, SCDs, anticoagulation currently contraindicated given GI bleed concerns Left pleural effusion, status post thoracocentesis, on diuresis, now with left pneumothorax with incomplete expansion of left lung, repeat chest x-ray this morning shows improved aeration, resolved pneumothorax NSTEMI -Initial troponin 152, 6-hour troponin was 162.6, EKG no acute ST-T wave changes, no chest pain complaints -Serial EKGs, serial troponins -Continue aspirin, statin -Telemetry monitoring -Anticoagulation currently on hold due to anemia, concerns for GI bleed -Elevated troponin likely multifactorial from acute respiratory failure, diastolic CHF and anemia, however cannot rule out underlying cardiac etiology GI bleed -Hemoglobin 8.5 -Was on Eliquis 2.5 mg twice daily for atrial fibrillation, currently on hold -Hemoccult was positive in the emergency room -No hemodynamic compromise -Hold Eliquis -s/p 2 unit prbc -Given cardiac history, maintain hemoglobin greater than 8 -Avoid fluid overload, Lasix therapy with blood if needed -Protonix 40 IV twice daily, Carafate -Serum iron studies, show iron deficiency anemia, will give the IV iron -Monitor hemodynamics closely -General surgery has been consulted Bilateral patchy infiltrates on chest x-ray, and CT angiogram concerning for pneumonia -WBC 10.4, pro-Francis 0.96, CRP 265 febrile up to 100.2 -Covid PCR negative -Follow blood cultures, sputum cultures, urine bacterial antigens -Follow thoracocentesis cultures -Likely fluid overload, was covered with Rocephin and azithromycin, given worsening respiratory status will expand antibiotic coverage to cefepime, azithromycin -Vancomycin has been stopped due to negative MRSA PCR COPD, will hold off on steroid therapy as no active wheezing Paroxysmal atrial fibrillation, currently rhythm controlled, out of A. fib, continue amiodarone Type 2 diabetes mellitus, -Hold home Tresiba, Lantus 10 units at bedtime -Low-dose sliding scale Status: Acute (2) Pleural effusion: Status: Acute (3) Anemia: Status: Acute (4) Anticoagulation adequate with anticoagulant therapy: Status: Acute (5) COPD (chronic obstructive pulmonary disease): Status: Acute (6) NSTEMI (non-ST elevated myocardial infarction): Status: Acute (7) COPD with emphysema: Status: Acute (8) Hyperlipidemia: Status: Acute (9) Atrial fibrillation: Status: Acute (10) CAD (coronary artery disease): Status: Acute (11) Diabetes mellitus: Status: Acute (12) Acute respiratory failure with hypoxia: Status: Acute (13) Pneumothorax: Status: Acute (14) Acute respiratory distress syndrome: Status: Acute Attestations Medical Necessity Statement*: Patient requires hospitalization for acute res piratory distress syndrome Coding Level of Care Code 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
--- NOTE | 2021-10-08 13:03 | PC.CHAP ---
Pastoral Care Encounter/Spiritual Assessment Type of Contact [] Declined painter spray visit [] Patient/Family/Request visit [] Outpatient visit [xx] Follow-up visit [] Physician referral [] Code/Alert [] Routine visit [] Staff referral [] Actively dying [xx] Patient sleeping [] Family support [] [] Out of room [xx] Palliative care [] [xx] Receiving care in room [] Pre-surgical visit [] Trauma [xx] Long length of stay [] ICU visit [] Other: Relational/Emotional Strength [] Patient feels connected with others/family/visitors/staff [] Distress [] Loneliness/isolation [] Abandonment Spirituality of Patient [] Person of Bridget [] Attends Restorationist of their Bridget [] Believes in Prayer [] Reads Bible or Restorationism materials [] There are Spiritual issues to be addressed Hard Hat Diver Interventions [xx] Prayer [] Active listening [] Non-anxious presence [] Spiritual/emotional support [] Crisis/trauma care [] Spiritual counseling [] Bereavement support [] Provided bereavement packet [] Provided Bible/devotional materials [] Provided toy/stuffed animal, coloring book to patient or family member [] Provided Communion [] Anointing/[place] [] Salvation [] Completed spiritual assessment [] Other: Impact on Illness or Injury [] Angry [] Fearful [] Anxious [] Often cries [] Exhaustion [] Unable to work [] Unable to attend confucianist [] Unable to walk/stand [] Unable to read [] Unable to drive [] Unable to eat/drink [] Unable to sleep [] Unable to be with family [] Patient intubated [] Other: Summary Patient was asleep. Staff was monitoring patient. Hard Hat Diver prayed for him outside the room. Time spent with patient 1 minute
[2021-10-08 16:46] LABS: Glucose Point of Care 346 mg/dL (70-110)
[2021-10-08 20:11] LABS: Glucose Point of Care 456 mg/dL (70-110)
[2021-10-08] MEDS: atorvastatin 40 mg Tablet 10 MG PO (20:28)
[2021-10-08] MEDS: metoprolol succinate ER (24 HR) 25 mg Tablet PO (20:28)
[2021-10-08] MEDS: azithromycin 500 MG in sodium chloride 0.9% 250 ML 250 MG IV (20:29)
[2021-10-08] MEDS: insulin glargine 100 units/1 mL 10 UNIT SUBCUT (20:29)
--- NOTE | 2021-10-08 21:18 | PC.NURSE ---
Family called with concerns of higher blood sugars with steroid use due to problems with high sugars in the past. Informed Dr Herrera and received orders to change to high dose sliding scale to include at bedtime. RBVO
[2021-10-08 21:44] LABS: Glucose Point of Care 449 mg/dL (70-110)
[2021-10-09] VITALS (25 sets, daily range): BP systolic 106–128; BP diastolic 45–83; PULSE 54–71; RESP 18–24; TEMP 36.1–37.2; O2SAT 91–96
[2021-10-09 00:27] LABS: Glucose Point of Care 416 mg/dL (70-110)
[2021-10-09] MEDS: ipratropium-albuterol 3 mL Neb INHALATION ×5 (03:05→19:56)
[2021-10-09 04:42] LABS: ABG PCO2 57.7 mmHg (35-45); ABG PH Result 7.37 (7.35-7.45); Arterial Blood Gas Hematocrit 24.8 % (42-52); Base Excess ABG 7.2 mmol/L (-2.0-2.0); Blood Gas Sample Site Radial, right; Blood Gas Sample Type Arterial; HCO3 ABG 33.5 mmol/L (22-26); Oxygen Device NC
[2021-10-09 05:00] LABS: Basophils % 0.1 %; Hematocrit 27.9 % (42.0-52.0); Hemoglobin 8.5 g/dL (11.7-16.6); Lymphocytes # 0.1 10^3/uL (0.8-4.8); Lymphocytes % 1.3 %; Mean Corpuscular HGB Conc 30.5 g/dL (30.0-36.0); Mean Corpuscular Hemoglobin 26.2 pg (28.0-34.0); Mean Corpuscular Volume 86.1 fl (80-94); Mean Platelet Volume 9.8 fL (7.4-10.4); Monocytes # 0.1 10^3/uL (0.2-0.9); Monocytes % 1.5 %; Neutrophils # 8.98 10^3/uL (1.8-7.7); Neutrophils % 96.6 %; Nucleated Red Blood Cells % 0 %; Platelet Count 373 10^3/cmm (130-400); Red Blood Count 3.24 10^6/uL (4.1-5.3); Red Cell Distribution Width 16.5 % (12.1-15.1); White Blood Count 9.3 10^3/uL (4.0-10.0)
[2021-10-09] MEDS: cefepime 2,000 MG in sodium chloride 0.9% (plus) 50 ML 100 MG IV (05:04)
[2021-10-09] MEDS: losartan 50 mg Tablet 25 MG PO (05:05)
[2021-10-09] MEDS: amiodarone 200 mg Tablet PO (05:05)
[2021-10-09] MEDS: sucralfate 1 gm Tablet PO ×2 (05:05→17:18)
[2021-10-09 05:18] LABS: INR 1.01 (0.8-1.2)
[2021-10-09 05:27] LABS: NT Pro B Type Natriuretic Pept 3992 pg/mL (0-450); Procalcitonin 0.84 ng/mL (0-0.5)
[2021-10-09 05:38] LABS: Alanine Aminotransferase 13 U/L (0-41); Albumin Level 2.7 g/dL (3.5-5.2); Alkaline Phosphatase 105 IU/L (40-130); Anion Gap 19.3 (5-19); Aspartate Amino Transferase 17 U/L (0-40); Blood Urea Nitrogen 70 mg/dL (8-23); C Reactive Protein 178.3 mg/L (0.0-4.9); Calcium 7.9 mg/dL (8.5-10.5); Carbon Dioxide 28 mmol/L (22-29); Chloride 89 mmol/L (98-107); Glucose 419 mg/dL (65-115); Magnesium 2.3 mg/dL (1.7-2.3); Osmolality Calculated 312 mOsm/kg (285-295); Phosphorus 3.1 mg/dL (2.5-4.5); Potassium 4.3 mmol/L (3.5-5.1); Sodium 132 mmol/L (136-145); Total Bilirubin 0.3 mg/dL (0.15-1.2); Total Protein 5.7 g/dL (6.6-8.7)
[2021-10-09 06:28] LABS: Glucose Point of Care 513 mg/dL (70-110)
[2021-10-09 06:38] LABS: Glucose Point of Care 483 mg/dL (70-110)
[2021-10-09] MEDS: insulin lispro 100 unit/1 mL SUBCUT ×4 (06:39→21:09)
--- NOTE | 2021-10-09 07:00 | XRR_ITS ---
PROCEDURE INFORMATION: Exam: XR Chest Exam date and time: 10/09/2021 7:00 AM Age: 86 years old Clinical indication: Shortness of breath; Additional info: SOB TECHNIQUE: Imaging protocol: XR of the chest. Views: 1 view. COMPARISON: CR XR chest 1V portable [id number] 10/08/2021 6:29 AM FINDINGS: Lungs: There are bilateral extensive pulmonary infiltrates which are unchanged. Pleural spaces: Bilateral pleural effusions unchanged. There is a trace pneumothorax in the left apex. This has decreased since previous studies. Heart/Mediastinum: Unremarkable. No cardiomegaly. Bones/joints: Unremarkable. XR/XR chest 1V portable [id number] IMPRESSION: 1. Stable prominent bilateral pulmonary infiltrates with pleural effusions. 2. Decreasing trace left apical pneumothorax.
[2021-10-09] MEDS: tamsulosin 0.4 mg Capsule PO ×2 (09:05→17:18)
[2021-10-09] MEDS: cloNIDine 0.1 mg Tablet 0.2 MG PO ×3 (09:05→20:47)
[2021-10-09] MEDS: pantoprazole 40 mg SDV IVP ×2 (09:05→20:30)
[2021-10-09] MEDS: finasteride 5 mg Tablet PO (09:06)
--- NOTE | 2021-10-09 09:56 | PC.SOCIAL ---
IMM Update CM to patient's room, family at bedside. Discussed medicare rights, family verbalized understanding. Provided copy and initialed, timed, dated copy in patient's chart.
--- NOTE | 2021-10-09 10:13 | ECG_ITS ---
[facility] Test Date: 2021-10-09 Pat Name: Ion Messina Department: Room: 112 Gender: Male Detail Manager: : [id number] Requested By: Chapito Whitlock Order Number: [id number] Олег MD: Comfort Serrano M.D. Measurements Intervals [place] Rate: 55 P: -87 FL: 214 QRS: -40 QRSD: 129 T: -61 QT: 424 QTc: 406 Interpretive Statements Atrial fibrillation with OCCASIONAL VENTRICULAR PREMATURE COMPLEXES LEFT AXIS DEVIATION [QRS AXIS < -30] MODERATE INTRAVENTRICULAR CONDUCTION DELAY [110+ ms QRS DURATION] NONSPECIFIC ST & T-WAVE ABNORMALITY Compared to ECG 10/04/2021 18:24:47 Atrial fibrillation seems to be new ventricular premature complex(es) now present First degree AV block now present T-wave abnormality now present Ectopic atrial rhythm no longer present Electronically Signed On 10-09-2021 15:04:01 LUMBER INSPECTOR by Comfort Serrano M.D. [email or web address]
[2021-10-09 11:22] LABS: Glucose Point of Care 413 mg/dL (70-110)
--- NOTE | 2021-10-09 11:22 | PC.NURSE ---
Patients BG [id number] at this time sliding scale reads to give 18units patient requesting 15units Dr Whitlock notified and okayed to give 15 units
[2021-10-09 16:48] LABS: Glucose Point of Care 326 mg/dL (70-110)
--- NOTE | 2021-10-09 17:02 | PM.PN ---
Subjective Subjective: Interval history: Patient was seen this morning, no fevers overnight, no nausea, no vomiting, currently on heated high flow 45 L 80%, denies any sudden onset worsening shortness of breath, his appetite has improved to some degree, is at bedside, daughter is at bedside Vitals/I&O/Wt Last Vital Signs Temp 99.0 F 10/09/21 08:00 Pulse 59 L 10/09/21 15:35 Resp 18 10/09/21 15:35 BP 128/83 10/09/21 14:49 Pulse Ox 96 10/09/21 15:35 10/09/21 10/09/21 10/09/21 06:59 14:59 22:59 Intake Total 50 / 1170 480 / 480 Output Total 325 / 775 Balance -275 / 395 480 / 480 Physical Exam Const: COMMON NORMALS: no acute distress and patient oriented x3 GENERAL APPEARANCE: ill appearing and frail appearing Resp: COMMON NORMALS: normal respiratory effort, No retractions and No use of accessory muscles AUSCULTATION: diminished lung sounds diffuse Cardio: COMMON NORMALS: regular rate, regular rhythm, S1 normal heart sound present and S2 normal heart sound present RATE: regular rate RHYTHM: regular rhythm HEART SOUNDS: S1 normal heart sound present and S2 normal heart sound present GI: COMMON NORMALS: Normal to inspection, nondistended, normoactive bowel sounds present, Soft to palpation and non-tender PALPATION: Yes Soft to palpation Extremity: COMMON NORMALS: no pedal edema Neuro: COMMON NORMALS: patient oriented x3 Psych: COMMON NORMALS: mental status grossly normal Urinary Catheter Management^: Tinajero: Cath Placed During This Visit: yes Reason for Continuing Indwelling Catheter: Acute Urinary Retention or Obstruction Urinary Catheter Date of Insertion: 10/04/21 Urinary Catheter Time of Insertion: 22:00 Data : 10/09/21 04:40 10/09/21 04:40 Micro: Microbiology 10/07/21 14:15 Mycobacterial Smear - Preliminary Body Fluids - Pleura 10/04/21 15:06 Blood Culture - Final Blood NO GROWTH AFTER 5 DAYS 10/04/21 15:06 Blood Culture - Final Blood NO GROWTH AFTER 5 DAYS 10/07/21 14:15 Gram Stain - Final Pleural Fluid Body Fluid Culture - Preliminary A&P Assessment and plan (1) Diastolic CHF, acute on chronic: Acute hypoxic hypercarbic respiratory failure -Given increased oxygen requirements, evidence of acute respiratory distress syndrome -Currently being managed in the [facility] -Secondary to diastolic CHF as below -Possible underlying pneumonia given elevated CRP pro-Francis -CT angiogram does not show any radiographic evidence of pulmonary emboli but does show severe centrilobular emphysema, mild to moderate nonspecific bilateral pulmonary opacities consistent with pneumonia versus pulmonary edema -Given evidence of left-sided pneumothorax, chest x-ray this morning shows small apical pneumothorax, still avoid positive pressure ventilation -Transition to heated high flow -Hold off on further steroids given elevated blood sugars -Status is stable, prognosis is guarded Acute on chronic diastolic CHF exacerbation -Fluid restrictions 1200 cc -Creatinine up to 2.2, urine output 800 cc avoid Bumex therapy for the next 24 hours - hold off on metolazone Normal left ventricular size and systolic function, EF 66 %. No regional wall motion abnormalities. Grade I/IV diastolic dysfunction (abnormal relaxation filling pattern), normal to mildly elevated filling pressures. Mildly dilated left atrium Bioprosthetic valve the aortic position appears to be well- seated with a peak velocity of 2.25 m/s Trace tricuspid valve regurgitation. Thickened mitral valve. Moderate mitral annular calcification. Appears to have large left-sided pleural effusion. There is no pericardial effusion. -Monitor creatinine, monitor urine output -Full code -DVT prophylaxis, SCDs, anticoagulation currently contraindicated given GI bleed concerns Left pleural effusion, status post thoracocentesis, on diuresis, now with left pneumothorax with incomplete expansion of left lung, repeat chest x-ray this morning shows small left apical pneumothorax NSTEMI -Initial troponin 152, 6-hour troponin was 162.6, EKG no acute ST-T wave changes, no chest pain complaints -Serial EKGs, serial troponins -Continue aspirin, statin -Telemetry monitoring -Anticoagulation currently on hold due to anemia, concerns for GI bleed -Elevated troponin likely multifactorial from acute respiratory failure, diastolic CHF and anemia, however cannot rule out underlying cardiac etiology GI bleed -Hemoglobin 8.5 -Was on Eliquis 2.5 mg twice daily for atrial fibrillation, currently on hold -Hemoccult was positive in the emergency room -No hemodynamic compromise -Hold Eliquis -s/p 2 unit prbc -Given cardiac history, maintain hemoglobin greater than 8 -Avoid fluid overload, Lasix therapy with blood if needed -Protonix 40 IV twice daily, Carafate -Serum iron studies, show iron deficiency anemia, will give the IV iron -Monitor hemodynamics closely -General surgery has been consulted Bilateral patchy infiltrates on chest x-ray, and CT angiogram concerning for pneumonia -WBC 9.3 -Covid PCR negative -Follow blood cultures, sputum cultures, urine bacterial antigens -Follow thoracocentesis cultures -Likely fluid overload, was covered with Rocephin and azithromycin, given worsening respiratory status will expand antibiotic coverage to cefepime, azithromycin -Vancomycin has been stopped due to negative MRSA PCR COPD, will hold off on steroid therapy as no active wheezing Paroxysmal atrial fibrillation, currently rhythm controlled, out of A. fib, continue amiodarone Type 2 diabetes mellitus, -Hold home Tresiba, Lantus 10 units at bedtime -Low-dose sliding scale Status: Acute (2) Pleural effusion: Status: Acute (3) Anemia: Status: Acute (4) Anticoagulation adequate with anticoagulant therapy: Status: Acute (5) COPD (chronic obstructive pulmonary disease): Status: Acute (6) NSTEMI (non-ST elevated myocardial infarction): Status: Acute (7) COPD with emphysema: Status: Acute (8) Hyperlipidemia: Status: Acute (9) Atrial fibrillation: Status: Acute (10) CAD (coronary artery disease): Status: Acute (11) Diabetes mellitus: Status: Acute (12) Acute respiratory failure with hypoxia: Status: Acute (13) Pneumothorax: Status: Acute (14) Acute respiratory distress syndrome: Status: Acute Attestations Medical Necessity Statement*: Patient requires hospitalization for acute hypoxic respiratory failure Coding Level of Care Code Acute Driver/Merchandiser for [facility] Diagnoses Diastolic CHF, acute on chronic I50.33 Pleural effusion J90 Anemia D64.9 Anticoagulation adequate with anticoagulant therapy Z79.01 COPD (chronic obstructive pulmonary disease) J44.9 NSTEMI (non-ST elevated myocardial infarction) I21.4 COPD with emphysema J43.9 Hyperlipidemia E78.5 Atrial fibrillation I48.91 CAD (coronary artery disease) I25.10 Diabetes mellitus E11.9 Acute respiratory failure with hypoxia J96.01 Pneumothorax J93.9 Acute respiratory distress syndrome J80
[2021-10-09 19:16] LABS: Blood Urea Nitrogen 80 mg/dL (8-23); Calcium 7.5 mg/dL (8.5-10.5); Carbon Dioxide 26 mmol/L (22-29); Chloride 92 mmol/L (98-107); Glucose 280 mg/dL (65-115); Osmolality Calculated 310 mOsm/kg (285-295); Sodium 133 mmol/L (136-145)
[2021-10-09 19:19] LABS: Anion Gap 19.1 (5-19); Potassium 4.1 mmol/L (3.5-5.1)
[2021-10-09] MEDS: atorvastatin 40 mg Tablet 10 MG PO (20:30)
[2021-10-09] MEDS: azithromycin 500 MG in sodium chloride 0.9% 250 ML 250 MG IV (20:38)
[2021-10-09] MEDS: insulin glargine 100 units/1 mL 10 UNIT SUBCUT (20:59)
[2021-10-09 21:07] LABS: Glucose Point of Care 186 mg/dL (70-110)
[2021-10-10] VITALS (17 sets, daily range): BP systolic 105–139; BP diastolic 45–77; PULSE 59–69; RESP 18–39; TEMP 37.3–37.4; O2SAT 88–95
[2021-10-10] MEDS: ipratropium-albuterol 3 mL Neb INHALATION ×4 (00:15→12:18)
[2021-10-10 04:41] LABS: Arterial Blood Gas Hematocrit 25.9 % (42-52); Base Excess ABG 7.7 mmol/L (-2.0-2.0); Blood Gas Sample Site Radial, left; Blood Gas Sample Type Arterial; HCO3 ABG 33.5 mmol/L (22-26); Oxygen Device NC; PO2 ABG 55.1 mmHg (80.0-100.0)
[2021-10-10 04:54] LABS: Basophils % 0.2 %; Eosinophils # 0.2 10^3/uL (0.0-0.8); Eosinophils % 1.8 %; Hematocrit 25.1 % (42.0-52.0); Hemoglobin 7.9 g/dL (11.7-16.6); Lymphocytes # 0.4 10^3/uL (0.8-4.8); Lymphocytes % 3.6 %; Mean Corpuscular HGB Conc 31.5 g/dL (30.0-36.0); Mean Corpuscular Hemoglobin 26.1 pg (28.0-34.0); Mean Corpuscular Volume 82.8 fl (80-94); Mean Platelet Volume 9.6 fL (7.4-10.4); Monocytes % 9.7 %; Neutrophils # 8.65 10^3/uL (1.8-7.7); Neutrophils % 84.4 %; Nucleated Red Blood Cells % 0 %; Platelet Count 382 10^3/cmm (130-400); Red Blood Count 3.03 10^6/uL (4.1-5.3); Red Cell Distribution Width 17.2 % (12.1-15.1); White Blood Count 10.2 10^3/uL (4.0-10.0)
[2021-10-10 05:24] LABS: NT Pro B Type Natriuretic Pept 11612 pg/mL (0-450); Procalcitonin 0.68 ng/mL (0-0.5)
[2021-10-10] MEDS: sucralfate 1 gm Tablet PO (05:28)
[2021-10-10] MEDS: losartan 50 mg Tablet 25 MG PO (05:28)
[2021-10-10] MEDS: amiodarone 200 mg Tablet PO (05:28)
[2021-10-10] MEDS: latanoprost 0.005% Op Soln 2.5 mL Btl 1 DROP EYE-BOTH (05:29)
[2021-10-10] MEDS: cefepime 1,000 MG in sodium chloride 0.9% (plus) 50 ML 100 MG IV (05:29)
[2021-10-10 05:36] LABS: Alanine Aminotransferase 16 U/L (0-41); Albumin Level 2.4 g/dL (3.5-5.2); Alkaline Phosphatase 105 IU/L (40-130); Anion Gap 18.9 (5-19); Aspartate Amino Transferase 25 U/L (0-40); Blood Urea Nitrogen 87 mg/dL (8-23); C Reactive Protein 88.2 mg/L (0.0-4.9); Calcium 7.8 mg/dL (8.5-10.5); Carbon Dioxide 27 mmol/L (22-29); Chloride 92 mmol/L (98-107); Globulin 2.7 g/dL (1.3-4.6); Glucose 148 mg/dL (65-115); Magnesium 2.3 mg/dL (1.7-2.3); Osmolality Calculated 307 mOsm/kg (285-295); Phosphorus 2.1 mg/dL (2.5-4.5); Potassium 3.9 mmol/L (3.5-5.1); Sodium 134 mmol/L (136-145); Total Bilirubin 0.3 mg/dL (0.15-1.2); Total Protein 5.1 g/dL (6.6-8.7)
[2021-10-10 06:31] LABS: Glucose Point of Care 246 mg/dL (70-110)
[2021-10-10] MEDS: insulin lispro 100 unit/1 mL SUBCUT (07:18)
[2021-10-10] MEDS: tamsulosin 0.4 mg Capsule PO (07:18)
[2021-10-10] MEDS: finasteride 5 mg Tablet PO (07:19)
[2021-10-10] MEDS: predniSONE 5 mg Tablet 2.5 MG PO (07:19)
[2021-10-10] MEDS: cloNIDine 0.1 mg Tablet 0.2 MG PO (07:19)
--- NOTE | 2021-10-10 08:26 | XRR_ITS ---
PROCEDURE INFORMATION: Exam: XR Chest Exam date and time: 10/10/2021 8:26 AM Age: 86 years old Clinical indication: Shortness of breath; Additional info: SOB TECHNIQUE: Imaging protocol: XR of the chest. Views: 1 view. COMPARISON: CR (CHEST, ) 10/09/2021 7:13 AM FINDINGS: Lungs: Moderate bibasilar airspace opacities (atelectasis and/or consolidation), similar to prior study. Mild pulmonary edema, decreased from prior study. Pleural spaces: No visible pneumothorax. Small to moderate pleural effusions bilaterally, similar to prior study. Heart/Mediastinum: Heart size within normal limits. Bones/joints: Median sternotomy wires are present. XR/XR chest 1V portable [id number] IMPRESSION: 1. Moderate bibasilar airspace opacities (atelectasis and/or consolidation), similar to prior study. 2. Mild pulmonary edema, decreased from prior study. 3. Small to moderate pleural effusions bilaterally, similar to prior study.
[2021-10-10] MEDS: pantoprazole 40 mg SDV IVP (08:29)
[2021-10-10] MEDS: LORazepam 2 mg/mL INJ 1 mL 1 MG IVP (08:35)
[2021-10-10] MEDS: bisacodyl 5 mg Tablet 10 MG PO (09:15)
[2021-10-10 10:44] LABS: Glucose Point of Care 113 mg/dL (70-110)
--- NOTE | 2021-10-10 14:14 | P.PN_ITS ---
Subjective Subjective: Interval history: Patient was seen this morning, tachypneic, in mild respiratory distress, intercostal, supracostal retractions, alert to person, to place, following commands, he is tell me that he was short of breath, he did not get much sleep overnight, patient's daughter was at bedside -Currently saturating in the mid 80s, 45 L, 80% -I discussed with patient my concerns for his worsening respiratory status, his chest x-ray yesterday showed small pneumothorax, there might be a possibility that he might require chest tube placement if his pneumothorax starts to enlar ge, however patient would not like to have a chest tube to be placed, discussed risks of pneumothorax including morbidity and mortality, he voiced understanding, declined -I discussed continuing management, interventions, he voiced understanding, all questions answered, he wants to proceed, but is okay with morphine for pain and air hunger, Ativan for anxiety -Discussed my concerns for his worsening respiratory status, he does not want to have aggressive interventions, he wants to see how he does with conservative management, he will talk to his about full comfort care Vitals/I&O/Wt Last Vital Signs Temp 99.2 F 10/10/21 11:28 Pulse 69 10/10/21 12:25 Resp 22 H 10/10/21 12:19 BP 112/45 10/10/21 11:28 Pulse Ox 91 10/10/21 12:19 10/09/21 10/10/21 10/10/21 22:59 06:59 14:59 Intake Total 890 / 1850 370 / 2220 Output Total 1125 / 1125 1125 / 2250 375 / 375 Balance -235 / 725 -755 / -30 -375 / -375 Physical Exam Const: GENERAL APPEARANCE: cooperative, in distress (Mild respiratory distress), ill appearing and frail appearing ORIENTATION/CONSCIOUSNESS: Yes awake, Yes oriented to person and Yes oriented to place Resp: EFFORT & INSPECTION: Yes tachypneic, Yes respiratory distress and Yes uses accessory muscles AUSCULTATION: diminished lung sounds diffuse Cardio: COMMON NORMALS: regular rate, regular rhythm, S1 normal heart sound present and S2 normal heart sound present RATE: regular rate RHYTHM: regular rhythm HEART SOUNDS: S1 normal heart sound present and S2 normal heart sound present GI: COMMON NORMALS: Normal to inspection, nondistended, normoactive bowel sounds present, Soft to palpation and non-tender PALPATION: Yes Soft to p alpation Extremity: COMMON NORMALS: no pedal edema Neuro: SENSORIUM/ORIENTATION: Yes oriented to person and Yes oriented to place Urinary Catheter Management^: Tinajero: Cath Placed During This Visit: yes Reason for Continuing Indwelling Catheter: Accurate Measurement of Urinary Output in Critically Ill Patients Urinary Catheter Date of Insertion: 10/04/21 Urinary Catheter Time of Insertion: 22:00 Data : 10/10/21 03:58 10/10/21 03:58 Micro: Microbiology 10/07/21 14:15 Mycobacterial Smear - Preliminary Body Fluids - Pleura 10/04/21 15:06 Blood Culture - Final Blood NO GROWTH AFTER 5 DAYS 10/04/21 15:06 Blood Culture - Final Blood NO GROWTH AFTER 5 DAYS 10/07/21 14:15 Gram Stain - Final Pleural Fluid Body Fluid Culture - Preliminary A&P Assessment and plan (1) Diastolic CHF, acute on chronic: Acute hypoxic hypercarbic respiratory failure -Given increased oxygen requirements, evidence of acute respiratory distress syndrome -Currently being managed in the [facility] -Secondary to diastolic CHF as below -Possible underlying pneumonia given elevated CRP pro-Francis -CT angiogram does not show any radiographic evidence of pulmonary emboli but does show severe centrilobular emphysema, mild to moderate nonspecific bilateral pulmonary opacities consistent with pneumonia versus pulmonary edema -Given evidence of left-sided pneumothorax, chest x-ray yesterday shows small apical pneumothorax, still avoid positive pressure ventilation, patient does not want to have a chest tube to place, discussed morbidity and mortality, risks and benefits, he voiced understanding, declined for now -Transition to heated high flow -Hold off on further steroids given elevated blood sugars -Status is critical, prognosis is poor Acute on chronic diastolic CHF exacerbation -Fluid restrictions 1200 cc -Creatinine up to 2.8, urine output 2600 cc avoid Bumex therapy for the next 24 hours - hold off on metolazone Normal left ventricular size and systolic function, EF 66 %. No regional wall motion abnormalities. Grade I/IV diastolic dysfunction (abnormal relaxation filling pattern), normal to mildly elevated filling pressures. Mildly dilated left atrium Bioprosthetic valve the aortic position appears to be well- seated with a peak velocity of 2.25 m/s Trace tricuspid valve regurgitation. Thickened mitral valve. Moderate mitral annular calcification. Appears to have large left-sided pleural effusion. There is no pericardial effusion. -Monitor creatinine, monitor urine output -Full code -DVT prophylaxis, SCDs, anticoagulation currently contraindicated given GI bleed concerns Left pleural effusion, status post thoracocentesis, on diuresis, now with left pneumothorax with incomplete expansion of left lung, repeat chest x-ray yesterday morning shows small left apical pneumothorax, patient does not want to have a chest tube to place, discussed morbidity and mortality, risks and benefits, he voiced understanding, declined for now NSTEMI -Initial troponin 152, 6-hour troponin was 162.6, EKG no acute ST-T wave changes, no chest pain complaints -Serial EKGs, serial troponins -Continue aspirin, statin -Telemetry monitoring -Anticoagulation currently on hold due to anemia, concerns for GI bleed -Elevated troponin likely multifactorial from acute respiratory failure, diastolic CHF and anemia, however cannot rule out underlying cardiac etiology GI bleed -Hemoglobin 7.9 -Was on Eliquis 2.5 mg twice daily for atrial fibrillation, currently on hold -Hemoccult was positive in the emergency room -No hemodynamic compromise -Hold Eliquis -s/p 2 unit prbc -Given cardiac history, maintain hemoglobin greater than 8, however given his concerns for fluid overload we will hold off on transfusion today -Avoid fluid overload, Lasix therapy with blood if needed -Protonix 40 IV twice daily, Carafate -Serum iron studies, show iron deficiency anemia, will give the IV iron -Monitor hemodynamics closely -General surgery has been consulted Bilateral patchy infiltrates on chest x-ray, and CT angiogram concerning for pneumonia -WBC 10.2 -Covid PCR negative -Follow blood cultures, sputum cultures, urine bacterial antigens -Follow thoracocentesis cultures -Likely fluid overload, was covered with Rocephin and azithromycin, given worsening respiratory status will expand antibiotic coverage to cefepime, azithromycin -Vancomycin has been stopped due to negative MRSA PCR COPD, will hold off on steroid therapy as no active wheezing Paroxysmal atrial fibrillation, currently rhythm controlled, out of A. fib, continue amiodarone Type 2 diabetes mellitus, -Hold home Tresiba, Lantus 10 units at bedtime -Low-dose sliding scale Status: Acute (2) Pleural effusion: Status: Acute (3) Anemia: Status: Acute (4) Anticoagulation adequate with anticoagulant therapy: Status: Acute (5) COPD (chronic obstructive pulmonary disease): Status: Acute (6) NSTEMI (non-ST elevated myocardial infarction): Status: Acute (7) COPD with emphysema: Status: Acute (8) Hyperlipidemia: Status: Acute (9) Atrial fibrillation: Status: Acute (10) CAD (coronary artery disease): Status: Acute (11) Diabetes mellitus: Status: Acute (12) Acute respiratory failure with hypoxia: Status: Acute (13) Pneumothorax: Status: Acute (14) Acute respiratory distress syndrome: Status: Acute Attestations Medical Necessity Statement*: Patient requires hospitalization for acute respiratory failure with hypoxia, NSTEMI, GI bleed Coding Level of Care Code Acute Life Skills Educator for [facility] Fwd Diagnoses Diastolic CHF, acute on chronic I50.33 Pleural effusion J90 Anemia D64.9 Anticoagulation adequate with anticoagulant therapy Z79.01 COPD (chronic obstructive pulmonary disease) J44.9 NSTEMI (non-ST elevated myocardial infarction) I21.4 COPD with emphysema J43.9 Hyperlipidemia E78.5 Atrial fibrillation I48.91 CAD (coronary artery disease) I25.10 Diabetes mellitus E11.9 Acute respiratory failure with hypoxia J96.01 Pneumothorax J93.9 Acute respiratory distress syndrome J80
[2021-10-10] MEDS: LORazepam 2 mg/mL INJ 1 mL IVP (17:17)
[2021-10-10] MEDS: glycopyrrolate 0.2 mg/mL SDV 2 mL IV (17:28)
--- NOTE | 2021-10-10 18:00 | PC.NURSE ---
Patient at this time Verified By second Nurse Dr adams notified
--- NOTE | 2021-10-19 12:22 | PM.DDS ---
Discharge Providers DDS Date of Admission: 10/04/21 17:59 Date Summary Completed: 10/19/21 Attending Provider at Admission: Chapito Whitlock MD Time of : 19:11 Attending Provider at Discharge: Chapito Whitlock MD Primary Care Provider: TROY Barba Diagnoses Hospital Diagnoses (1) Anemia: Reason for Visit Reason for Visit: SOB W/EDEMA Summary Date and Time of Date of : 10/10/21 Time of : 19:11 Summary Summary: Ion Messina is a 86 year old male with a past medical history of a bioprosthetic aortic valve, history of diastolic CHF, atrial fibrillation on Eliquis 2.5 mg twice daily, CAD, CKD, centrilobular emphysema, COPD 8 L oxygen dependent, history of sinus bradycardia, history of epistaxis, history of insulin-dependent type 2 diabetes mellitus who presents to [facility] due to increased bilateral lower extremity edema, increased shortness of breath with minimal exertion and weakness. Patient was admitted to [facility] for acute on chronic diastolic CHF exacerbation, with acute hypoxic hypercarbic respiratory failure, with acute respiratory distress syndrome, underlying pneumonia, and GI bleed,. Patient declined intubation, declined aggressive interventions, was managed with BiPAP therapy, inpatient diuresis, broad-spectrum antibiotic therapy. He developed JAMI on CKD hampering diuresis, patient declined dialysis. In an effort to improve his respiratory status, he underwent a left thoracocentesis and subsequently developed a left pneumothorax, no evidence of mediastinal shift, patient declined chest tube. Gradually patient's respiratory status worsened, fluid overload increased, pulmonary edema increased and increased urine output decreased. In addition patient's mentation declined, with inability to follow commands. After discussing all options with the patient's family, patient's family decided on pursuing comfort care, discussed risks and benefits, they voiced understanding, all questions answered, agreed to proceed. Patient was made comfort care, and 10/10/2021 at 1911. Additional Data Confirmation of as documented by pronouncing clinician: no pulse and no respirations Family: at bedside Additional persons at bedside: nursing staff Attending/PCP notified?: Attending notified Was code activated?: No Advance directives?: No Discharge Plan Discharge Patient Disposition: At Medical Facility Condition: Stable Prescriptions: No Action aspirin [Adult Low Dose Aspirin] 81 mg tablet,delayed release (DR/EC) 81 mg PO QAM RF: 0 metoprolol succinate 25 mg tablet extended release 24 hr 25 mg PO BEDTIME Qty: 90 RF: 2 furosemide 40 mg tablet See Rx Instructions .ROUTE .COMPLEX RF: 0 azithromycin 250 mg tablet 250 mg PO .COMPLEX 90 Days Qty: 45 RF: 3 tamsulosin 0.4 mg capsule 0.4 mg PO BID Qty: 180 RF: 3 amlodipine 10 mg tablet 10 mg PO DAILY Qty: 90 RF: 1 finasteride 5 mg tablet 5 mg PO DAILY Qty: 90 RF: 3 albuterol sulfate 2.5 mg /3 mL (0.083 %) solution for nebulization 2.5 mg inhalation Q4H PRN (Reason: shortness of breath or wheezing) Qty: 180 RF: 5 albuterol sulfate 90 mcg/actuation HFA aerosol inhaler 2 puff inhalation QID PRN (Reason: Shortness Of Breath Or Wheezing) Qty: 8.5 RF: 6 nitroglycerin 0.4 mg Tablet, Sublingual 0.4 mg SUBLINGUAL Q5M PRN (Reason: Chest Pain) RF: 0 docusate sodium 100 mg Tablet 100 mg PO BID RF: 0 Tresiba FlexTouch U-200 200 unit/mL (3 mL) insulin pen 22 unit SUBCUT BEDTIME RF: 0 prednisone 2.5 mg tablet 2.5 mg PO EVERY OTHER DAY RF: 0 budesonide 0.25 mg/2 mL suspension for nebulization 0.25 mg inhalation BID RF: 0 formoterol fumarate [Perforomist] 20 mcg/2 mL solution for nebulization 2 ml inhalation Q12H RF: 0 Yupelri 175 mcg/3 mL solution for nebulization 175 mcg inhalation DAILY@12 RF: 0 latanoprost 0.005 % drops 1 drp ophthalmic (eye) BEDTIME RF: 0 atorvastatin 10 mg tablet 10 mg PO BEDTIME RF: 0 amiodarone 200 mg tablet 200 mg PO QAM RF: 0 clonidine HCl 0.2 mg tablet 0.2 mg PO TID RF: 0 olmesartan 20 mg tablet 10 mg PO QAM RF: 0 insulin lispro [Humalog KwikPen Insulin] 100 unit/mL insulin pen See Rx Instructions .ROUTE .COMPLEX RF: 0 Eliquis 5 mg tablet 5 mg PO BID RF: 0 Referrals: Kamla,Sandy, BILINGUAL LEGAL ASSISTANT [Primary Care Provider] - Patient Instructions: Opioid Safety Probable Cause of Probable cause of : Cardiac arrest DS Attestations Time Spent in /Discharge Care*: greater than 30 min Quality - AMI: AMI present?: No Quality - Stroke: CVA present?: No Symptom Onset Unknown: No Quality - VTE: VTE present?: No Deep Vein Thrombosis/Pulmonary Embolism Present on Admission: No Coding Level of Care Code Acute Public Health Officer for [facility] Diagnoses Anemia D64.9
== END 2021-10-10 18:00 | disposition expired ==
LOC: ER 15:37 → MEDSURG 18:00 → ICU 10-06 19:04 → CSU 10-07 05:00
PROVIDERS: Admitting Provider Family Medicine; Emergency Provider Emergency Medicine; PCP Nurse Practitioner Family; Visit Provider Family Medicine
DX: I13.0 Hypertensive heart and chronic kidney disease with heart failure and stage 1 through stage 4 chronic kidney disease, or unspecified chronic kidney disease (principal); I50.33 Acute on chronic diastolic (congestive) heart failure; I21.4 Non-ST elevation (NSTEMI) myocardial infarction; J80 Acute respiratory distress syndrome; J90 Pleural effusion, not elsewhere classified; J93.83 Other pneumothorax; K92.2 Gastrointestinal hemorrhage, unspecified; N17.9 Acute kidney failure, unspecified; J43.2 Centrilobular emphysema; D50.9 Iron deficiency anemia, unspecified; I48.0 Paroxysmal atrial fibrillation; E78.5 Hyperlipidemia, unspecified; I25.10 Atherosclerotic heart disease of native coronary artery without angina pectoris; Z87.891 Personal history of nicotine dependence; Z95.5 Presence of coronary angioplasty implant and graft; Z95.3 Presence of xenogenic heart valve; E11.22 Type 2 diabetes mellitus with diabetic chronic kidney disease; N18.9 Chronic kidney disease, unspecified; Z79.01 Long term (current) use of anticoagulants; Z99.81 Dependence on supplemental oxygen; Z79.4 Long term (current) use of insulin; Z79.82 Long term (current) use of aspirin; Z66 Do not resuscitate; E11.649 Type 2 diabetes mellitus with hypoglycemia without coma; Z79.52 Long term (current) use of systemic steroids; Z51.5 Encounter for palliative care; N40.1 Benign prostatic hyperplasia with lower urinary tract symptoms
CPT/HCPCS: 32555; 36415; 36416; 36430; 36600; 51702; 71045; 71275; 80048; 80051; 80053; 80500; 82042; 82150; 82330; 82570; 82728; 82803; 82805; 82945; 82962; 83540; 83550; 83605; 83615; 83735; 83880; 83986; 84100; 84145; 84157; 84478; 84484; 85014; 85018; 85025; 85610; 86140; 86403; 86850; 86900; 86920; 87015; 87040; 87070; 87075; 87116; 87205; 87206; 87449; 87635; 87641; 87801; 87804; 88305; 89050; 93005; 93306; 94640; 94660; 94664; 96372; 96374; 99285; C9113; J0456; J0692; J0696; J1756; J1815 ×2; J1940; J2060; J2930; J3370; J3480; J3490; J3535; J7050; J7512; J7611; P9016; Q9967